=== PATIENT | male | born 1950 | race Caucasian/White ===

== ENCOUNTER 2022-12-14 08:36 | Outpatient (RCR) | payer MEDICARE, OTHER, SELFPAY | END 2023-04-16 09:26 | disposition home or self-care (01) | LOC: HO.PTCHIC 08:36 | PROVIDERS: PCP Pediatrics; Visit Provider Internal Medicine | DX: M54.50 Low back pain, unspecified (principal) | CPT/HCPCS: 97110; 97163 ==

== ENCOUNTER 2023-09-23 16:16 | Outpatient (REF) | payer MEDICARE, MEDICAID, SELFPAY ==
[2023-09-23 17:54] LABS: Appearance Urine Clear; Color Urine Yellow; Glucose Urine UA >=1000 mg/dL (Negative); Leukocyte Esterase Urine Negative (Negative); Nitrite Urine Negative (Negative); PH 5.5 (5.0-9.0); Specific Gravity - Urine >= 1.030 (1.005-1.025); UMIC TRIGGER UA YES; Urine Blood Negative (Negative); Urine Ketones Negative (Negative); Urine Protein Negative (Neg-Trace)
[2023-09-23 18:01] LABS: Bacteria Urine None Seen (None Seen); Hyaline Casts Urine 0-2 /LPF (0-2); RBC Urine 0-2 /HPF (0-2); Squamous Epithelial Cell Urine 0-2 /HPF (0-2); WBC Urine 0-5 /HPF (0-5)
== END 2023-09-23 16:17 | disposition home or self-care (01) ==
LOC: HO.CHCLNP 16:16
PROVIDERS: Visit Provider Registered Nurse
DX: R39.9 Unspecified symptoms and signs involving the genitourinary system (principal)
CPT/HCPCS: 81001; 87086

== ENCOUNTER 2023-09-24 10:56 | Outpatient (REF) | payer MEDICARE, OTHER, SELFPAY ==
[2023-09-24 15:37] LABS: Prostate Specific Antigen 4.02 ng/mL (<0.05-4.0)
== END 2023-09-24 10:57 | disposition home or self-care (01) ==
LOC: HO.CHCLDS 10:56
PROVIDERS: Visit Provider Registered Nurse
DX: R39.9 Unspecified symptoms and signs involving the genitourinary system (principal); R39.14 Feeling of incomplete bladder emptying; Z12.5 Encounter for screening for malignant neoplasm of prostate
CPT/HCPCS: 36415; 84153

== ENCOUNTER 2023-11-18 08:32 | Outpatient (AMB) | payer MEDICARE, MEDICAID, SELFPAY ==
--- NOTE | 2023-11-18 08:38 | A.OFFVIS_ITS ---
Intake Intake Visit Reasons: Elevated PSA Intake Note: NEW Patient presents today to established treatment for Elevated PSA: Results 4.02 ng/mL, 09/24/2023. Meds- Tamsulosin Allergies to Antibiotic- No Known Allergies Blood Thinner- Aspirin Post Void Residual: 83 mL Client Service Supervisor Required: Yes Client Service Supervisor Language: Italian Information Interpreted: non-clinical & clinical Accompanied by: Self / Same As Patient Allergies No Known Allergies [No Known Allergies*] Allergy (Verified 11/18/23 09:00) Medication List - Last Reconciled 11/18/23 by Rossy Do MD aspirin 81 mg PO QAM atorvastatin 20 mg PO QAM cholecalciferol (vitamin D3) 125 mcg PO QWEEK ezetimibe 10 mg PO QAM famotidine 20 mg PO finasteride (Proscar) 5 mg PO DAILY 90 days gabapentin 200 mg PO lisinopril 10 mg PO QAM metformin 1,000 mg PO metoprolol tartrate 12.5 mg PO sertraline 50 mg PO QAM tamsulosin 0.4 mg PO QAM HPI HPI Comments History of Present Illness Details Richar is a Italian speaking male who is here for evaluation for elevated PSA. 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 He denies FH of prostate cancer. The patient complains of nocturia 1-2 times denies hematuria, denies dysuria, ocassional weak stream I have discussed that elevated PSA may indicate changes in the prostate including benign enlargement, cancer and an inflammatory condition. I have discussed doing a biopsy has risks and that management in early detection of prostate cancer may include active surveillance. Prostate exam - smooth no suspicious nodules I have discussed evaluation of urinary tract with US retroperitoneum and will start proscar. UA---Leuk neg, blood neg Plan:proscar 5 mg daily US retroperitoneum PSA in 14 wks FU in 4 months [facility] Surgical History Hx of heart artery stent Hx of hernia repair Family History Father Heart disease Diabetes No family history of cancer Mother No problems noted. Social History Alcohol intake: current Alcohol intake frequency: holidays/special occasions only Patient Tobacco Use Status: Never used Tobacco Review of Systems Const All systems reviewed & are unremarkable except as noted in HPI and below Reports no additional complaints Eyes Reports no additional complaints ENT Reports no additional complaints Card Denies dyspnea Resp Denies cough and Denies dyspnea GI Reports no additional complaints Musc Reports no additional complaints Skin/Breast Denies rash and Denies unusual bruising Neuro Reports no additional complaints Psych Reports no additional complaints Endo Reports no additional complaints Liang/Lymph Reports no additional complaints Aller/Immun Reports no additional complaints Physical Exam Const General: healthy appearing, no acute distress and well developed Orientation/consciousness: patient oriented x3 HEENT Head: Yes normocephalic and Yes atraumatic Eyes Conjunctivae: conjunctivae normal Neck Neck: Yes normal visual inspection Chest Chest palpation & inspection: normal inspection of the chest Resp Effort & Inspection: normal respiratory effort Cardio Rate: regular rate GI Inspection: Yes normal to inspection Palpation (GI): Soft to palpation Other: Prostate Exam: smooth, mod enlarged no suspicious nodules palp'd Scrotum: scrotum normal Skin General skin exam: no rashes or lesions noted Neuro General: patient oriented x3 Extrem General: No pedal edema Psych Appearance: grossly normal Affect: normal affect Office Procedures Post Void Residual Post Residual Void Post Void Residual (PVR): 83 [id number] Void Residual by ultrasound Results AMB Urinalysis, Automated UA Leukoctes 0 Shobha/uL Last Edit by ADRIAN Wiseman on 11/18/23 09:08 UA Nitrite Negative Last Edit by ADRIAN Wiseman on 11/18/23 09:08 UA Urobilinogen 0.2 mg/dL Last Edit by ADRIAN Wiseman on 11/18/23 09:0 8 UA Protein 0 mg/dL Last Edit by ADRIAN Wiseman on 11/18/23 09:08 UA pH 5.5 Last Edit by ADRIAN Wiseman on 11/18/23 09:08 UA Blood 0 Andres/uL Last Edit by George Guzmán, JAIROA on 11/18/23 09:08 UA Specific [place] 1.015 Last Edit by JAIRO WisemanA on 11/18/23 09: 08 UA Ketone Negative Last Edit by JAIRO WisemanA on 11/18/23 09:08 UA Bilirubin 0 mg/dL Last Edit by JAIRO WisemanA on 11/18/23 09:08 UA Glucose 1000 mg/dL Last Edit by JAIRO WiesmanA on 11/18/23 09:08 3+ George Guzmán 11/18/23 09:08 Results Reviewed Results Reviewed: Laboratory Last Values Urine pH (Auto) 5.5 11/18/23 09:02 Specific [place] (Auto) 1.015 11/18/23 09:02 Urine Protein (Auto) 0 mg/dL 11/18/23 09:02 Glucose (UA)(Auto) 1000 mg/dL 11/18/23 09:02 Urine Ketones (Auto) Negative 11/18/23 09:02 Urine Blood (Auto) 0 Andres/uL 11/18/23 09:02 Urine Nitrite (Auto) Negative 11/18/23 09:02 Urine Bilirubin (Auto) 0 mg/dL 11/18/23 09:02 Urine Urobilinogen (Auto) 0.2 mg/dL 11/18/23 09:02 Leukocyte Esterase (Auto) 0 Shobha/uL 11/18/23 09:02 Assessment & Plan Assessment & Plan (1) BPH loc w urin obs/LUTS: Code(s): N40.1 - Benign prostatic hyperplasia with lower urinary tract symptoms (2) Elevated PSA: Code(s): R97.20 - Elevated prostate specific antigen [PSA] Plan proscar 5 mg daily US retroperitoneum PSA in 14 wks FU in 4 months Orders: Orders US retroperitoneal comp 11/18/23 N40.1 - Benign prostatic hyperplasia with lower urinary tract symptoms AMB Urinalysis Automated 11/18/23 Z13.9 - Encounter for screening, unspecified AMB Post Void Residual by ultrasound 11/18/23 N39.8 - Other specified disorders of urinary system PSA,Total (Free>4and<10) 14 Weeks N40.1 - Benign prostatic hyperplasia with lower urinary tract symptoms, R97.20 - Elevated prostate specific antigen [PSA] Medications: New finasteride (Proscar) 5 mg PO DAILY 90 days 90 tabs 3RF C61 - Malignant neoplasm of prostate Patient Instructions: The patient had an opportunity to ask questions regarding treatment plan. All questions were answered. Laboratory studies and physical exam results were discussed and reviewed in detail. No major barriers to understanding were identified. The patient expressed understanding and agreement with the above treatment plan. The patient is aware they should contact our office by phone for worsening of their current condition or the appearance of new symptoms. Compliance is encouraged with any medications and followup testing that is ordered. It is a privilege to be allowed the opportunity to participate in the urologic care of your patient. If you have any questions or concerns regarding treatment for the above conditions please do not hesitate to contact me. The office telephone contact is [phone]. This note is constructed in part using voice recognition software. While every effort has been made to ensure accuracy railroad car repairman errors may have been included. Yours sincerely, Rossy Do MD Coding Level of Care Code New Pt Level 4 (72465) Diagnoses BPH loc w urin obs/LUTS N40.1 Elevated PSA R97.20 CPT Codes Post Residual Void - PVR CPT Code: 22808-Sail Void Residual by ultrasound ([id number])
== END 2023-11-18 10:00 | disposition home or self-care (01) ==
PROVIDERS: PCP Pediatrics; Visit Provider Urology
DX: N40.1 Benign prostatic hyperplasia with lower urinary tract symptoms (principal); R97.20 Elevated prostate specific antigen [PSA]
CPT/HCPCS: 99204

== ENCOUNTER → 2023-11-18 08:32 | Outpatient (BNVA) | payer MEDICARE, OTHER, SELFPAY | PROVIDERS: PCP Pediatrics; Visit Provider Urology | DX: N40.1 Benign prostatic hyperplasia with lower urinary tract symptoms (principal); R35.1 Nocturia; R97.20 Elevated prostate specific antigen [PSA]; Z79.82 Long term (current) use of aspirin | CPT/HCPCS: 51798; 81003; 99202 ==

== ENCOUNTER 2024-03-04 09:31 | Outpatient (REF) | payer MEDICARE, MEDICAID, SELFPAY ==
--- NOTE | ~2024-03-04 | US_ITS ---
EXAMINATION: US RETROPERITONEAL COMPLETE (RENAL) CLINICAL INFORMATION: Benign prostatic hyperplasia with lower urinary tract symptoms. COMPARISON: None available. TECHNIQUE: Real-time imaging of the kidneys and bladder. FINDINGS: RIGHT KIDNEY: 11.2 x 6.8 x 5.6 cm (SAG x AP x TRV). The kidney is normal in size, contour, and echogenicity. Renal cortical thickness is normal. No renal calculi or hydronephrosis. Multiple simple cysts measuring up to 2.0 cm. No imaging follow-up is recommended. 1.5 cm focal echogenic lesion in the lower pole right kidney. LEFT KIDNEY: No kidney is seen in the left renal fossa. PELVIC KIDNEY: Located to the right of midline. Pelvic kidney measures 8.8 x 2.7 x 3.0 cm (SAG x AP x TRV). The kidney measures small but this may be due to the pelvic position of the kidney and suboptimal visualization. There is no visible mass. No nephrolithiasis or hydronephrosis. BLADDER: Well distended and normal. Bilateral ureteral jets are demonstrated. Prevoid bladder volume is 350 mL. Postvoid bladder volume is 215 mL. ADDITIONAL FINDINGS: Enlarged prostate measuring 51 mL. US/US retroperitoneal comp IMPRESSION: Right kidney in the right renal fossa. 1.5 cm focal echogenic lesion in the lower pole right kidney. 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 Follow-up imaging is recommended with CT abdomen without and with contrast as renal cell carcinoma can present as an echogenic mass on ultrasound. No kidney in the left renal fossa. There is a pelvic kidney located to the right of midline which measures small in size but is otherwise normal in appearance. Enlarged prostate. No hydronephrosis. Post void bladder residual 215 mL.
== END 2024-03-04 09:32 | disposition home or self-care (01) ==
LOC: HO.US 09:31
PROVIDERS: PCP Student in an Organized Health Care Education/Training Program; Visit Provider Urology
DX: N40.1 Benign prostatic hyperplasia with lower urinary tract symptoms (principal)
CPT/HCPCS: 76770

== ENCOUNTER 2024-03-19 09:58 | Outpatient (AMB) | payer MEDICARE, MEDICAID, SELFPAY ==
--- NOTE | 2024-03-19 10:03 | A.OFFVIS_ITS ---
Intake Visit Reasons: 4m/PSA Intake Note: Patient presents today for a follow-up on US Results: Meds- Tamsulosin Allergies to Antibiotic- No Known Allergies Blood Thinner- Aspirin Post Void Residual: 0mL Jewel Diameter Gauger Required: Yes Jewel Diameter Gauger Language: Nigerien Information Interpreted: non-clinical & clinical Accompanied by: Self / Same As Patient Allergies No Known Allergies [No Known Allergies*] Allergy (Verified 11/18/23 09:00) Medication List - Last Reconciled 03/19/24 by Rossy Do MD aspirin 81 mg PO QAM atorvastatin 20 mg PO QAM cholecalciferol (vitamin D3) 125 mcg PO QWEEK ezetimibe 10 mg PO QAM famotidine 20 mg PO finasteride (Proscar) 5 mg PO DAILY 90 days gabapentin 200 mg PO lisinopril 10 mg PO QAM metformin 1,000 mg PO metoprolol tartrate 12.5 mg PO sertraline 50 mg PO QAM tamsulosin 0.4 mg PO QAM HPI Comments Details: 03/19/24--Richar is here for follow-up for elevated PSA. He was initially evaluated 11/18/2023 for elevated PSA, 09/24/23-4.02 and sent for repeat PSA, started on Proscar and sent for renal ultrasound. I have reviewed ultrasound results 03/04/2024, left kidney is absent from the renal fossa. Right kidney 1.5 cm echogenic lesion lower pole. Pelvic kidney seen to the right of the midline and elevated postvoid residual. Prostate volume estimated at 51 mL. I have discussed further evaluation with CT abdomen and pelvis with and without IV contrast. PSA, BUN, and creatinine ordered. Review of chart 11/18/23--Richar is a Nigerien speaking male who is here for evaluation for elevated PSA. 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 He denies FH of prostate cancer. The patient complains of nocturia 1-2 times denies hematuria, denies dysuria, ocassional weak stream. I have discussed that elevated PSA may indicate changes in the prostate including benign enlargement, cancer and an inflammatory condition. I have discussed doing a biopsy has risks and that management in early detection of prostate cancer may include active surveillance. Prostate exam - smooth no suspicious nodules. UA---Leuk neg, blood neg I have discussed evaluation of urinary tract with US retroperitoneum and will start proscar. PFSH Surgical History Hx of heart artery stent Hx of hernia repair Family History Father Heart disease Diabetes No family history of cancer Mother No problems noted. Social History Alcohol intake: current Alcohol intake frequency: holidays/special occasions only Patient Tobacco Use Status: Never used Tobacco Review of Systems Const All systems reviewed & are unremarkable except as noted in HPI and below Reports no additional complaints Eyes Reports no additional complaints ENT Reports no additional complaints Card Reports no additional complaints Resp Reports no additional complaints GI Reports no additional complaints Reports as per HPI Musc Reports no additional complaints Skin/Breast Reports system reviewed and no additional complaints, except as documented Neuro Reports no additional complaints Psych Reports no additional complaints Endo Reports no additional complaints Liang/Lymph Reports no additional complaints Aller/Immun Reports no additional complaints Office Procedures Post Void Residual Post Residual Void Post Void Residual (PVR): 0 [id number] Void Residual by ultrasound Results AMB Urinalysis, Automated UA Leukoctes 0 Shobha/uL Last Edit by ADRIAN Wiseman on 03/19/24 10:14 UA Nitrite Negative Last Edit by ADRIAN Wiseman on 03/19/24 10:14 UA Urobilinogen 0.2 mg/dL Last Edit by ADRIAN Wiseman on 03/19/24 10:1 4 UA Protein 0 mg/dL Last Edit by ADRIAN Wiseman on 03/19/24 10:14 UA pH 6.0 Last Edit by ADRIAN Wiseman on 03/19/24 10:14 UA Blood 0 Andres/uL Last Edit by ADRIAN Wiseman on 03/19/24 10:14 UA Specific [place] 1.010 Last Edit by George Morinmer ADRIAN on 03/19/24 10: 14 UA Ketone Negative Last Edit by George Guzmán ADRIAN on 03/19/24 10:14 UA Bilirubin 0 mg/dL Last Edit by George Guzmán ADRIAN on 03/19/24 10:14 UA Glucose 1000 mg/dL Last Edit by George Guzmán ADRIAN on 03/19/24 10:14 Results Reviewed Results Reviewed: Laboratory Last Values Urine pH (Auto) 6.0 03/19/24 10:05 Specific [place] (Auto) 1.010 03/19/24 10:05 Urine Protein (Auto) 0 mg/dL 03/19/24 10:05 Glucose (UA)(Auto) 1000 mg/dL 03/19/24 10:05 Urine Ketones (Auto) Negative 03/19/24 10:05 Urine Blood (Auto) 0 Andres/uL 03/19/24 10:05 Urine Nitrite (Auto) Negative 03/19/24 10:05 Urine Bilirubin (Auto) 0 mg/dL 03/19/24 10:05 Urine Urobilinogen (Auto) 0.2 mg/dL 03/19/24 10:05 Leukocyte Esterase (Auto) 0 Shobha/uL 03/19/24 10:05 Date of Service: 03/04/24 EXAMINATION: US RETROPERITONEAL COMPLETE (RENAL) CLINICAL INFORMATION: Benign prostatic hyperplasia with lower urinary tract symptoms. COMPARISON: None available. TECHNIQUE: Real-time imaging of the kidneys and bladder. FINDINGS: RIGHT KIDNEY: 11.2 x 6.8 x 5.6 cm (SAG x AP x TRV). The kidney is normal in size, contour, and echogenicity. Renal cortical thickness is normal. No renal calculi or hydronephrosis. Multiple simple cysts measuring up to 2.0 cm. No imaging follow-up is recommended. 1.5 cm focal echogenic lesion in the lower pole right kidney. LEFT KIDNEY: No kidney is seen in the left renal fossa. PELVIC KIDNEY: Located to the right of midline. Pelvic kidney measures 8.8 x 2.7 x 3.0 cm (SAG x AP x TRV). The kidney measures small but this may be due to the pelvic position of the kidney and suboptimal visualization. There is no visible mass. No nephrolithiasis or hydronephrosis. BLADDER: Well distended and normal. Bilateral ureteral jets are demonstrated. Prevoid bladder volume is 350 mL. Postvoid bladder volume is 215 mL. ADDITIONAL FINDINGS: Enlarged prostate measuring 51 mL. IMPRESSION: Right kidney in the right renal fossa. 1.5 cm focal echogenic lesion in the lower pole right kidney. 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 Follow-up imaging is recommended with CT abdomen without and with contrast as renal cell carcinoma can present as an echogenic mass on ultrasound. No kidney in the left renal fossa. There is a pelvic kidney located to the right of midline which measures small in size but is otherwise normal in appearance. Enlarged prostate. No hydronephrosis. Post void bladder residual 215 mL. 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 Category: Medical Plan CT abdomen and pelvis with and without IV contrast, BUN and creatinine prior to IV contrast, PSA again ordered Orders: Orders AMB Post Void Residual by ultrasound Today N39.8 - Other specified disorders of urinary system Blood Urea Nitrogen Today N28.89 - Other specified disorders of kidney and ureter CT abdomen pelvis wo/w IV con Today N28.89 - Other specified disorders of kidney and ureter, 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 The patient expressed understanding and agreement with the above treatment plan. The patient is aware they should contact our office by phone for worsening of their current condition or the appearance of new symptoms. Compliance is encouraged with any medications and followup testing that is ordered. It is a privilege to be allowed the opportunity to participate in the urologic care of your patient. If you have any questions or concerns regarding treatment for the above conditions please do not hesitate to contact me. The office telephone contact is [phone]. This note is constructed in part using voice recognition software. While every effort has been made to ensure accuracy router machine operator errors may have been included. Yours sincerely, Rossy Do MD Coding Level of Care Code Est Pt Level 4 (87494) Diagnoses BPH loc w urin obs/LUTS N40.1 Elevated PSA R97.20 Renal mass N28.89 Screening PSA (prostate specific antigen) Z12.5 Pelvic kidney Q63.2 CPT Codes Post Residual Void - PVR CPT Code: 88586-Kfws Void Residual by ultrasound ([id number])
== END 2024-03-19 11:18 | disposition home or self-care (01) ==
PROVIDERS: PCP Pediatrics; Visit Provider Urology
DX: N40.1 Benign prostatic hyperplasia with lower urinary tract symptoms (principal); R97.20 Elevated prostate specific antigen [PSA]; N28.89 Other specified disorders of kidney and ureter; Z12.5 Encounter for screening for malignant neoplasm of prostate; Q63.2 Ectopic kidney; Z13.9 Encounter for screening, unspecified
CPT/HCPCS: 99214

== ENCOUNTER → 2024-03-19 09:58 | Outpatient (BNVA) | payer MEDICARE, MEDICAID, SELFPAY | PROVIDERS: PCP Pediatrics; Visit Provider Urology | DX: N40.1 Benign prostatic hyperplasia with lower urinary tract symptoms (principal); N13.8 Other obstructive and reflux uropathy; R97.20 Elevated prostate specific antigen [PSA]; N28.89 Other specified disorders of kidney and ureter; Q63.2 Ectopic kidney | CPT/HCPCS: 51798; 81003; 99212 ==

== ENCOUNTER 2024-05-20 07:05 | Outpatient (REF) | payer MEDICARE, MEDICAID, SELFPAY ==
--- NOTE | ~2024-05-20 | CT_ITS ---
EXAMINATION: CT ABDOMEN AND PELVIS WITHOUT AND WITH CONTRAST CLINICAL INFORMATION: Right renal mass. COMPARISON: Renal ultrasound 03/04/2024. TECHNIQUE: Multidetector volumetric imaging was performed of the abdomen and pelvis before and after the IV administration of 85 mL of Omnipaque 350 intravenous contrast. Sagittal and coronal reformatted images were obtained on the technologist's workstation. This CT examination was performed using dose optimization techniques as appropriate, variously including the following: *Automated exposure control *Adjustment of mA and/or kV according to patient size (this includes techniques or standardized protocols for targeted exams where dose is matched to indication/reason for exam; i.e. extremities or head) *Use of iterative reconstruction technique DLP: 409 mGy-cm FINDINGS: LUNG BASES: The visualized lung bases are unremarkable. LIVER, GALLBLADDER, AND BILIARY TREE: The liver is normal in size, shape, and attenuation. No focal hepatic lesion or biliary ductal dilatation is present. Cholecystectomy. PANCREAS: No discrete pancreatic mass. No pancreatic ductal dilatation. 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 KIDNEYS AND URETERS: No kidney in the left retroperitoneum. Right kidney in the right retroperitoneum. Right pelvic kidney. There is symmetric enhancement of both kidneys. No nephrolithiasis. There is subtle contour abnormality and subtle hypoenhancement measuring 1.7 x 1.6 cm along the inferior aspect of the right retroperitoneal kidney which corresponds to the area of abnormal echotexture on recent ultrasound. This is not a lipid rich angiomyolipoma. Etiology uncertain. This could represent perfusional artifact or a subtle endophytic mass that enhances similarly to adjacent renal parenchyma making it difficult to distinguish. Recommend further evaluation with MRI of the abdomen without and with intravenous contrast as it has better soft tissue characterization than CT. There is no visible mass in the right pelvic kidney. No hydronephrosis. BLADDER: Unremarkable GASTROINTESTINAL TRACT: Small bowel is normal in caliber. Diverticulosis of the colon. No evidence of diverticulitis. ABDOMINAL WALL: Left inguinal hernia repair. LYMPH NODES: No pathologically enlarged lymph nodes. VASCULAR: No aortic aneurysm. Mild aortoiliac atherosclerosis. PELVIC VISCERA: The prostate is enlarged. OSSEOUS STRUCTURES: Degenerative changes in the spine. CT/CT abdomen pelvis wo/w IV con IMPRESSION: Subtle contour abnormality and hypoenhancement measuring 1.7 x 1.6 cm in the lower right kidney corresponding to the area of abnormal echotexture on recent ultrasound. The finding is nonspecific. Neoplasm is not excluded. Recommend further evaluation with MRI of the abdomen without and with intravenous contrast due to its better soft tissue characterization.
[2024-05-20 09:23] LABS: Alanine Aminotransferase 26 U/L (0-40); Albumin Level 4.1 g/dL (3.5-5.0); Alkaline Phosphatase 65 U/L (39-117); Aspartate Amino Transferase 22 U/L (5-37); Bilirubin Direct 0.4 mg/dL (0.0-0.5); Bilirubin Total 1.1 mg/dL (0.0-1.0); Blood Urea Nitrogen 24 mg/dL (9-16); Cholesterol 160 mg/dL (<200); Estimated Glomerular Filt Rate > 60; HDL Cholesterol 62 mg/dL (>40); LDL Cholesterol Calculated 85 mg/dL (<100); Total Protein 7.2 g/dL (6.5-8.0); Triglycerides 69 mg/dL (<150)
[2024-05-20] MEDS: iohexoL 350 MG/ML 75 ML INFUS..BTL 85 ML IV (10:44)
== END 2024-05-20 07:06 | disposition home or self-care (01) ==
LOC: HO.CT 07:05
PROVIDERS: PCP Student in an Organized Health Care Education/Training Program; Visit Provider Urology
DX: Z12.5 Encounter for screening for malignant neoplasm of prostate (principal); Q63.2 Ectopic kidney; R97.20 Elevated prostate specific antigen [PSA]; N40.1 Benign prostatic hyperplasia with lower urinary tract symptoms; E11.9 Type 2 diabetes mellitus without complications; N28.89 Other specified disorders of kidney and ureter
CPT/HCPCS: 36415; 74178; 80061; 80076; 82565; 84153; 84520; Q9967

== ENCOUNTER 2024-09-03 07:48 | Outpatient (AMB) | payer MEDICARE, MEDICAID, SELFPAY ==
--- NOTE | 2024-09-03 07:38 | MHC.OFFVIS ---
Intake Visit Reasons: 3m/CT/labs/PVR(NO PSA) Intake Note: Patient is Present for Follow Up CT Urology Medication: Finasteride Antibiotic Allergies:None Blood Thinners:Aspirin Aviation Electrical Technician Required: Yes Aviation Electrical Technician Name: Adelita--[id number] Information Interpreted: non-clinical & clinical Allergies No Known Allergies [No Known Allergies*] Allergy (Verified 11/18/23 09:00) Medication List - Last Reconciled 09/03/24 by Rossy Do MD aspirin 81 mg PO QAM atorvastatin 20 mg PO QAM cholecalciferol (vitamin D3) 125 mcg PO QWEEK dutasteride (Avodart) 0.5 mg PO DAILY ezetimibe 10 mg PO QAM famotidine 20 mg PO gabapentin 200 mg PO lisinopril 10 mg PO QAM metformin 1,000 mg PO metoprolol tartrate 12.5 mg PO sertraline 50 mg PO QAM tamsulosin 0.4 mg PO QAM HPI Comments Details: 09/03/2024--Richar is here for follow-up. Discussed CT scan results--05/20/24-- No kidney in the left retroperitoneum. Right kidney in the right retroperitoneum and Right pelvic kidney. There is symmetric enhancement of both kidneys. No nephrolithiasis. There is subtle contour abnormality and subtle hypoenhancement measuring 1.7 x 1.6 cm along the inferior aspect of the right retroperitoneal kidney which corresponds to the area of abnormal echotexture on recent ultrasound. This is not a lipid rich angiomyolipoma. Etiology uncertain. PSA-05/17/24--3.50 ng/mL--Stable, proscar changed to avodart, tamsulosin. Review of chart: 03/19/24--Richar is here for follow-up for elevated PSA. He was initially evaluated 11/18/2023 for elevated PSA, 09/24/23-4.02 and sent for repeat PSA, started on Proscar and sent for renal ultrasound. I have reviewed ultrasound results 03/04/2024, left kidney is absent from the renal fossa. Right kidney 1.5 cm echogenic lesion lower pole. Pelvic kidney seen to the right of the midline and elevated postvoid residual. Prostate volume estimated at 51 mL. I have discussed further evaluation with CT abdomen and pelvis with and without IV contrast. PSA, BUN, and creatinine ordered. 11/18/23--Richar is a Tajik speaking male who is here for evaluation for elevated PSA. 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 He denies FH of prostate cancer. The patient complains of nocturia 1-2 times denies hematuria, denies dysuria, ocassional weak stream. I have discussed that elevated PSA may indicate changes in the prostate including benign enlargement, cancer and an inflammatory condition. I have discussed doing a biopsy has risks and that management in early detection of prostate cancer may include active surveillance. Prostate exam - smooth no suspicious nodules. UA---Leuk neg, blood neg I have discussed evaluation of urinary tract with US retroperitoneum and will start proscar. PFSH Surgical History Hx of heart artery stent Hx of hernia repair Family History Father Heart disease Diabetes No family history of cancer Mother No problems noted. Social History Alcohol intake: current Alcohol intake frequency: holidays/special occasions only Patient Tobacco Use Status: Never used Tobacco Review of Systems Const All systems reviewed & are unremarkable except as noted in HPI and below Reports no additional complaints Eyes Reports no additional complaints ENT Reports no additional complaints Card Reports no additional complaints Resp Reports no additional complaints GI Reports no additional complaints Reports as per HPI Musc Reports no additional complaints Skin/Breast Reports system reviewed and no additional complaints, except as documented Neuro Reports no additional complaints Psych Reports no additional complaints Endo Reports no additional complaints Liang/Lymph Reports no additional complaints Aller/Immun Reports no additional complaints Results AMB Urinalysis, Automated UA Leukoctes 0 Shobha/uL Last Edit by ADRIAN Carrillo on 09/03/24 08:28 UA Nitrite Negative Last Edit by ADRIAN Carrillo on 09/03/24 08:28 UA Urobilinogen 0.2 mg/dL Last Edit by ADRIAN Carrillo on 09/03/24 08:28 UA Protein 0 mg/dL Last Edit by ADRIAN Carrillo on 09/03/24 08:28 UA pH 5.0 Last Edit by ADRIAN Carrillo on 09/03/24 08:28 UA Blood 0 Andres/uL Last Edit by ADRIAN Carrillo on 09/03/24 08:28 UA Specific [place] 1.030 Last Edit by JAIRO CarrilloA on 09/03/24 08:28 UA Ketone Negative Last Edit by JAIRO CarrilloA on 09/03/24 08:28 UA Bilirubin 0 mg/dL Last Edit by JAIRO CarrilloA on 09/03/24 08:28 UA Glucose 1000 mg/dL Last Edit by JAIRO CarrilloA on 09/03/24 08:28 Results Reviewed Results Reviewed: Laboratory Last Values Urine pH (Auto) 5.0 09/03/24 08:28 Specific [place] (Auto) 1.030 09/03/24 08:28 Urine Protein (Auto) 0 mg/dL 09/03/24 08:28 Glucose (UA)(Auto) 1000 mg/dL 09/03/24 08:28 Urine Ketones (Auto) Negative 09/03/24 08:28 Urine Blood (Auto) 0 Andres/uL 09/03/24 08:28 Urine Nitrite (Auto) Negative 09/03/24 08:28 Urine Bilirubin (Auto) 0 mg/dL 09/03/24 08:28 Urine Urobilinogen (Auto) 0.2 mg/dL 09/03/24 08:28 Leukocyte Esterase (Auto) 0 Shobha/uL 09/03/24 08:28 Date of Service: 05/20/24 CT ABDOMEN AND PELVIS WITHOUT AND WITH CONTRAST CLINICAL INFORMATION: Right renal mass. COMPARISON: Renal ultrasound 03/04/2024. TECHNIQUE: Multidetector volumetric imaging was performed of the abdomen and pelvis before and after the IV administration of 85 mL of Omnipaque 350 intravenous contrast. Sagittal and coronal reformatted images were obtained on the technologist's workstation. This CT examination was performed using dose optimization techniques as appropriate, variously including the following: *Automated exposure control *Adjustment of mA and/or kV according to patient size (this includes techniques or standardized protocols for targeted exams where dose is matched to indication/reason for exam; i.e. extremities or head) *Use of iterative reconstruction technique DLP: 409 mGy-cm FINDINGS: LUNG BASES: The visualized lung bases are unremarkable. LIVER, GALLBLADDER, AND BILIARY TREE: The liver is normal in size, shape, and attenuation. No focal hepatic lesion or biliary ductal dilatation is present. Cholecystectomy. PANCREAS: No discrete pancreatic mass. No pancreatic ductal dilatation. 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 KIDNEYS AND URETERS: No kidney in the left retroperitoneum. Right kidney in the right retroperitoneum. Right pelvic kidney. There is symmetric enhancement of both kidneys. No nephrolithiasis. There is subtle contour abnormality and subtle hypoenhancement measuring 1.7 x 1.6 cm along the inferior aspect of the right retroperitoneal kidney which corresponds to the area of abnormal echotexture on recent ultrasound. This is not a lipid rich angiomyolipoma. Etiology uncertain. This could represent perfusional artifact or a subtle endophytic mass that enhances similarly to adjacent renal parenchyma making it difficult to distinguish. Recommend further evaluation with MRI of the abdomen without and with intravenous contrast as it has better soft tissue characterization than CT. There is no visible mass in the right pelvic kidney. No hydronephrosis. BLADDER: Unremarkable GASTROINTESTINAL TRACT: Small bowel is normal in caliber. Diverticulosis of the colon. No evidence of diverticulitis. ABDOMINAL WALL: Left inguinal hernia repair. LYMPH NODES: No pathologically enlarged lymph nodes. VASCULAR: No aortic aneurysm. Mild aortoiliac atherosclerosis. PELVIC VISCERA: The prostate is enlarged. OSSEOUS STRUCTURES: Degenerative changes in the spine. IMPRESSION: Subtle contour abnormality and hypoenhancement measuring 1.7 x 1.6 cm in the lower right kidney corresponding to the area of abnormal echotexture on recent ultrasound. The finding is nonspecific. Neoplasm is not excluded. Recommend further evaluation with MRI of the abdomen without and with intravenous contrast due to its better soft tissue characterization. Date of Service: 03/04/24 EXAMINATION: US RETROPERITONEAL COMPLETE (RENAL) CLINICAL INFORMATION: Benign prostatic hyperplasia with lower urinary tract symptoms. COMPARISON: None available. TECHNIQUE: Real-time imaging of the kidneys and bladder. FINDINGS: RIGHT KIDNEY: 11.2 x 6.8 x 5.6 cm (SAG x AP x TRV). The kidney is normal in size, contour, and echogenicity. Renal cortical thickness is normal. No renal calculi or hydronephrosis. Multiple simple cysts measuring up to 2.0 cm. No imaging follow-up is recommended. 1.5 cm focal echogenic lesion in the lower pole right kidney. LEFT KIDNEY: No kidney is seen in the left renal fossa. PELVIC KIDNEY: Located to the right of midline. Pelvic kidney measures 8.8 x 2.7 x 3.0 cm (SAG x AP x TRV). The kidney measures small but this may be due to the pelvic position of the kidney and suboptimal visualization. There is no visible mass. No nephrolithiasis or hydronephrosis. BLADDER: Well distended and normal. Bilateral ureteral jets are demonstrated. Prevoid bladder volume is 350 mL. Postvoid bladder volume is 215 mL. ADDITIONAL FINDINGS: Enlarged prostate measuring 51 mL. IMPRESSION: Right kidney in the right renal fossa. 1.5 cm focal echogenic lesion in the lower pole right kidney. 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 Follow-up imaging is recommended with CT abdomen without and with contrast as renal cell carcinoma can present as an echogenic mass on ultrasound. No kidney in the left renal fossa. There is a pelvic kidney located to the right of midline which measures small in size but is otherwise normal in appearance. Enlarged prostate. No hydronephrosis. Post void bladder residual 215 mL. 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 Orders: Orders AMB Urinalysis Automated Today Z13.9 - Encounter for screening, unspecified MR abdomen wo/w con Today N28.89 - Other specified disorders of kidney and ureter Creatinine Today N28.89 - Other specified disorders of kidney and ureter Blood Urea Nitrogen Today N28.89 - Other specified disorders of kidney and ureter Medications: New tamsulosin 0.4 mg PO QAM 90 caps 3RF dutasteride (Avodart) 0.5 mg PO DAILY 90 caps 3RF Patient Instructions: The patient had an opportunity to ask questions regarding treatment plan. The patient expressed understanding and agreement with the above treatment plan. The patient is aware they should contact our office by phone for worsening of their current condition or the appearance of new symptoms. Compliance is encouraged with any medications and followup testing that is ordered. It is a privilege to be allowed the opportunity to participate in the urologic care of your patient. If you have any questions or concerns regarding treatment for the above conditions please do not hesitate to contact me. The office telephone contact is [phone]. This note is constructed in part using voice recognition software. While every effort has been made to ensure accuracy hat blocking machine operator errors may have been included. Yours sincerely, Rossy Do MD Coding Level of Care Code Est Pt Level 4 (66589) Diagnoses BPH loc w urin obs/LUTS N40.1 Elevated PSA R97.20 Renal mass N28.89 Screening PSA (prostate specific antigen) Z12.5 Pelvic kidney Q63.2
== END 2024-09-03 08:53 | disposition home or self-care (01) ==
PROVIDERS: PCP Student in an Organized Health Care Education/Training Program; Visit Provider Urology
DX: N40.1 Benign prostatic hyperplasia with lower urinary tract symptoms (principal); R97.20 Elevated prostate specific antigen [PSA]; N28.89 Other specified disorders of kidney and ureter; Z12.5 Encounter for screening for malignant neoplasm of prostate; Q63.2 Ectopic kidney; Z13.9 Encounter for screening, unspecified
CPT/HCPCS: 99214

== ENCOUNTER → 2024-09-03 07:48 | Outpatient (BNVA) | payer MEDICARE, MEDICAID, SELFPAY | PROVIDERS: PCP Student in an Organized Health Care Education/Training Program; Visit Provider Urology | DX: Z12.5 Encounter for screening for malignant neoplasm of prostate (principal); N40.1 Benign prostatic hyperplasia with lower urinary tract symptoms; N28.89 Other specified disorders of kidney and ureter; Q63.2 Ectopic kidney; R97.20 Elevated prostate specific antigen [PSA] | CPT/HCPCS: 81003; 99212 ==

== ENCOUNTER 2024-12-11 10:18 | Outpatient (REF) | payer MEDICARE, MEDICAID, SELFPAY ==
--- OUTSIDE RECORDS SUMMARY | 2024-12-11 11:15 | XMS_ITS | Encounter Summary ---
Author Organization [email or web address] Address [address] [place] [address] [address] [place] [address] Care Team Providers Care Supervisor [employer]ler [employer] Name Role Phone Johana Nelson MD Primary Care Provider [phone] Encounter Details Date Type Department Care Team (Late st Contact Info) Description 08/01/2023 [facility] [employer] [facility] [address] [place], [place] [id number] Johana Nelson MD [address] [place], [place] [phone] Social History Tobacco Use Types Packs/Day Years Used Date Smoking Tobacco: Former Cigarettes Passive Smoke Exposure: Past Smokeless Tobacco: Never Alcohol Use Standard Drinks/Week Comments Not Currently 0 (1 standard drink = 0.6 oz pur e alcohol) Depression Answer Date Recorded Patient Health Questionnaire-9 Score 5 12/12/2022 Depression Answer Date Recorded Patient Health Questionnaire-2 Score 3 12/12/2022 Sex and Gender Information Value Date Recorded Sex Assigned at Male 09/03/2022 10:17 AM EDT Legal Sex Male 10:17 AM EDT Gender Identity Male 09/03/2022 10:17 AM EDT Sexual Orientation Straight 09/03/2022 10 :17 AM EDT documented as of this encounter Plan of Treatment Upcoming Encounters Date Type Department Care Team (Late st Contact Info) Description 12/23/2024 1:00 PM EST Office Visit [facility] [address] [place], [place] [phone] Mohsen King [address] [place], [place] [phone] documented as of this encounter Visit Diagnoses Not on filedocumented in this encounter Additional Health Concerns Assessment Noted Time PHQ-9 Depression Total Score: 5 12/12/19 23 10:17 AM EST documented as of this encounter Care Teams Supervisor [employer]ler [employer] Relationship Specialty Start Date End Date Johana Nelson MD [address] [place] [id number] PCP - General Family Medicine 09/24/12 documented as of this encounter
--- OUTSIDE RECORDS SUMMARY | 2024-12-11 11:15 | XMS_ITS | Clinical Summary ---
Author Organization [employer] Address [address] [place] [address] Care Team Providers Care Blowing Weasand Name Role Phone Johana Nelson MD Primary Care Provider Allergies No known active allergies Medications * This document contains information received from the source organization and may not represent a complete record from that organization. lisinopril 10 MG tablet Take 10 mg by mouth in the morning. 10/16/20 22 Active cetirizine (ZyrTEC) 10 MG tablet Take 1 tablet (10 mg) by mouth in the morning. 30 tablet 5 06/28/20 23 Active dapagliflozin (Farxiga) 5 MG Take 1 tablet (5 mg) by mouth in the morning. 30 tablet 11 12/11/19 24 Active Cobalamin Combinations (B-12 + Folic Acid) 2500-400 MCG tablet dispersibleIndic ations:Varicose veins of lower extremity, unspecified laterality, unspecified whether complicated TAKE ONE TABLET EVERY MORNING 30 tablet 11 12/25/19 24 Active atorvastatin (Lipitor) 20 MG tablet Take 1 tablet by mouth before breakfast. 01/22/20 23 Active finasteride (Proscar) 5 MG tablet Take 1 tablet by mouth in the morning. 11/19/19 24 Active nitroglycerin (Nitrostat) 0.[address] 1 tablet under the tongue every 5 (five) minutes if needed for chest pain. DO NOT EXCEED A TOTAL OF 3 DOSES IN 15 MINUTES Active sertraline (Zoloft) 50 MG tabletIndication s:Depression, unspecified depression type Take 1 tablet (50 mg) by mouth Once per day. 30 tablet 1 04/01/20 24 Active Diclofenac Sodium (Voltaren) 1 % gel Use topical BID 100 g 3 04/20/20 24 Active ezetimibe (Zetia) 10 MG tablet TAKE ONE TABLET EVERY MORNING 90 tablet 1 04/27/20 24 Active Aspirin Adult Low Strength 81 MG EC tablet TAKE ONE TABLET EVERY MORNING 90 tablet 1 05/15/20 24 Active Easy Touch Lancets 33G/Twist miscIndications: Type 2 diabetes mellitus without complications ([facility]/HCC) USE TO TEST BLOOD SUGAR TWO TO THREE TIME DAILY DIRECTED 90 each 06/15/20 24 025 Active Alcohol Swabs (Alcohol Prep) 70 % pads USE TWO TO THREE DAILY 90 each 06/15/20 24 025 Active tamsulosin (Flomax) 0.4 MG 24 hr capsuleIndicatio ns:Feeling of incomplete bladder emptying Take 1 capsule (0.4 mg) by mouth Once per day. 90 capsule 1 06/17/20 24 Active metFORMIN (Glucophage) 1000 MG tablet Take 1 tablet (1,000 mg) by mouth with breakfast and with evening meal. 180 tablet 3 06/17/20 24 025 Active gabapentin (Neurontin) 100 MG capsule TAKE TWO CAPSULES BY MOUTH TWICE DAILY IN THE MORNING AND AT BEDTIME 120 capsule 11 07/24/20 24 Active metoprolol tartrate (Lopressor) 25 MG tablet TAKE 1/2 TABLET TWICE DAILY IN THE MORNING AND AT BEDTIME 30 tablet 3 08/05/20 24 Active famotidine (Pepcid) 20 MG tablet TAKE ONE TABLET TWICE DAILY IN THE MORNING AND AT BEDTIME 60 tablet 1 08/20/20 24 Active cholecalciferol (Vitamin D-3) 125 MCG (5000 UT) capsule TAKE ONE CAPSULE BY MOUTH ONCE WEEKLY SATURDAY MORNING 4 capsule 4 08/28/20 24 Active glucose blood test stripIndications :Type 2 diabetes mellitus without complication, without long-term current use of insulin ([facility]) To check the blood sugar once a day 100 each 12 09/30/20 24 025 Active Lancets miscIndications: Type 2 diabetes mellitus without complication, without long-term current use of insulin ([facility]/HCC) Use to test blood sugar 1 time daily 100 each 11 10/07/20 24 Active glucose blood (FREESTYLE LITE) test stripIndications :Type 2 diabetes mellitus without complications (CMS/HCC) TEST BLOOD SUGAR once DAILY DIRECTED 100 strip 11 /07/20 25 Active celecoxib (CeleBREX) 50 MG capsule Take 1 capsule (50 mg) by mouth 2 times daily. 60 capsule 11/24/19 25 025 Active nitroglycerin (Nitrostat) 0.[address] 1 tablet (0.4 mg) under the tongue every 5 (five) minutes if needed for chest pain. 60 tablet 11/24/19 25 025 Active glipiZIDE (Glucotrol) 10 MG tablet Take 1 tablet (10 mg) by mouth before breakfast and before evening meal. 60 tablet 12/09/19 026 Active Dulaglutide (Trulicity) 0.75 MG/0.5ML solution auto-injectorInd ications:Type 2 diabetes mellitus without complication, without long-term current use of insulin ([facility]) Inject 0.75 mg under the skin 1 (one) time per week. 2 mL 3 12/11/19 026 Active hydrOXYzine HCl (Atarax) 25 MG tabletIndication s:Depression, unspecified depression type Take 1 tablet (25 mg) by mouth if needed at bedtime for anxiety. 90 tablet 3 12/12/19 025 Discontinued glipiZIDE (Glucotrol) 10 MG tablet Take 1 tablet (10 mg) by mouth before breakfast and before evening meal. 60 tablet 06/27/20 025 Discontinued(R eorder (will not trigger notification to Pharmacy)) cyclobenzaprine (Flexeril) 10 MG tablet Take 1 tablet (10 mg) by mouth 2 times daily for 10 days. 20 tablet 09/10/20 23 025 Discontinued Active Problems Problem Noted Date Diagnosed Date Depression, unspecified 04/07/2024 Assessment & Plan (04/10/2024 4:38 PM EDT): During IBH Consult Richar presenting with depressed mood, loss of interests/pleasure , trouble concentrating, fatigue/loss of energy, difficulty concentrating and sadness when talking about his mom; for a period of 18+ mo, for all symptoms in the context of and illness or family illness. Richar had presentation of bereavement sxs and reports the passing of his mom was very difficult. 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 PLAN: (check all that apply) Further services needed, but declined Behavioral Health Integration Plan Internal Follow up with [facility] Patient Self Plan Patient to utilize skills provided in intervention , [facility], and Patient to reach out to [facility] as needed. Pt will follow-up with clinician per his request. Unsure of external referrals for now. Bereavement 04/07/2024 Assessment & Plan (04/10/2024 4:38 PM EDT): During IB Consult Richar presenting with depressed mood, loss of interests/pleasure , trouble concentrating, fatigue/loss of energy, difficulty concentrating and sadness when talking about his mom; for a period of 18+ mo, for all symptoms in the context of and illness or family illness. Richar had presentation of bereavement sxs and reports the passing of his mom was very difficult. 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 PLAN: (check all that apply) Further services needed, but declined Behavioral Health Integration Plan Internal Follow up with [facility] Patient Self Plan Patient to utilize skills provided in intervention , Patient to reach out to [facility] team as needed, and Patient to reach out to [facility] as needed. Pt will follow-up with clinician per his request. Unsure of external referrals for now. Meningioma 01/21/2024 Assessment & Plan (01/21/2024 8:24 PM EDT): Head CT Dec 2013: 9mm circumscribed hyperdense focus in left parietal love c/w small meningioma. Head CT April 2018: There is a 0.8 cm parafalcine mass posteriorly, which is most consistent with a meningioma. Referral to Neurology sent Constipation 04/11/2018 Dental caries 02/23/2014 Joint pain 04/28/2013 Atherosclerosis of coronary artery 09/24/2012 Assessment & Plan (01/21/2024 8:23 PM EDT): -ED visit 01/12/24 to [facility] for paresthesias and chest pain. R/o TIA workup and ACS. Plan to follow up with Cardiology as scheduled 02/14/24. ED precautions reviewed Chronic bilateral low back pain with right-sided sciatica 09/24/2012 Assessment & Plan (10/16/2022 3:21 PM EST): Patient with hx of chronic back pain, he refers he was being followed by pain management but refused further treatment since he was not feeling any improvement. Will provide meloxicam to be taken PRN, also told to rest, apply ice and will refer to PT. Bilateral pain of leg and foot 01/24/2012 Diabetes mellitus 01/24/2012 Assessment & Plan (01/21/2024 8:23 PM EDT): Lab Results Component Value Date HGBA1C 10.3 (A) 12/11/2023 -Recently restarted medications, will not make any dose adjustments today -Continues with metformin, dapaglifozin, and glipizide -Encouraged importance of good BG control and lifestyle interventions -Follow up with PCP Assessment & Plan (09/29/2023 7:44 PM EST): Lab Results Component Value Date HGBA1C 9.7 (A) 06/27/2023 -Continues with metformin and glipizide -encouraged importance of good BG control and lifestyle interventions -Follow up with PCP Pure hypercholesterolemia 01/24/2012 Varicose veins of lower extremity 01/24/2012 Resolved Problems Problem Noted Date Diagnosed Date Resolved Date Persistent cough 09/03/2018 04/03/2023 Encounters Date Type Department Care Team Description 12/11/2024 10:15 AM EST Office Visit [facility] [address] [place] [address] Johana Nelson MD Gastroesophageal reflux disease without esophagitis (Primary Dx); Type 2 diabetes mellitus without complication, without long-term current use of insulin ([facility]/HCC); Encounter for annual wellness visit; Encounter for screening for malignant neoplasm of colon; Screening-pulmonary TB 12/11/2024 Travel 12/10/2024 Patient Outreach [facility] [address] [place] [address] Johana Nelson MD Transition Of Care (Tcm) 12/09/2024 10:00 AM EST Office Visit [facility] [address] [place] [address] Lesli Piña Encounter for dental examination (Primary Dx) 12/09/2024 Refill [facility] [address] [place] [address] Johana Nelson MD 12/07/2024 Telephone [facility] [address] [place] [address] Johana Nelson MD Transition Of Care (Tcm) 12/04/2024 Telephone [facility] [address] [place] [address] Priscilla Stevens, LOUANN 12/04/2024 Telephone [facility] [address] [place] [address] Johana eNlson MD Annual Exam 11/24/2024 Orders Only [facility] [address] [place] [address] Johana Nelson MD 11/20/2024 Telephone [facility] [address] [place] [address] Johana Nelson MD Medication Question 11/19/2024 Telephone [facility] [address] [place] [address] Lesli Piña 11/10/2024 Orders Only [facility] [address] [place] [address] Johana Nelson MD Type 2 diabetes mellitus without complications (CMS/HCC) 11/09/2024 Telephone [facility] [address] [place] [address] Johana Nelson MD Medication Question 09/30/2024 Orders Only [facility] [address] [place] [address] Keshia Frances MD Type 2 diabetes mellitus without complication, without long-term current use of insulin (CMS/HCC) (Primary Dx); Type 2 diabetes mellitus without complications (CMS/HCC) 09/10/2024 Telephone [facility] [address] [place] [address] Shanique Golden DDS from Last 3 Months Immunizations Name Administration Dates Next Due Influenza High-dose Quadriva lent Preservative Free 08/15/2023,08/10/2021,08/17/2020 Influenza injectable quadriv alent IIV4 with preservative 09/22/2019,08/19/2018,09/16/2017,09/03,08/02/2015 Influenza injectable quadriv alent preservative free 08/02/2022 Influenza, High Dose Seasona l, Preservative Free 09/03/2024 Influenza, IIV3, injectable 07/16/2014 Influenza, Split (incl. yolette fied surface antigen) 09/04/2013,07/16/2012 Moderna Covid-19 Vaccine 12+ 09/27/2021,02/09/20 21,01/11/2021 Pneumococcal Conjugate PCV 13 09/22/2019 Pneumococcal Conjugate PCV 20 10/07/2023 Pneumococcal Polysaccharide PPSV23 01/23/2013,,07/04/2004 RSV Bivalent 11/12/2023 TD (adult), 2 Lf tetanus tox oid, preservative free, adsorbed 02/08/2006 Tdap 05/15/2016 Zoster, Recombinant 11/12/2023,09/10/2023 Zoster, live 05/18/2014 Social History Tobacco Use Types Packs/Day Years Used Date Smoking Tobacco: Former Cigarettes Passive Smoke Exposure: Past Smokeless Tobacco: Never Tobacco Cessation:Counseling Given: Not Answered Alcohol Use Standard Drinks/Week Comments Not Currently 0 (1 standard drink = 0.6 oz pur e alcohol) Depression Answer Date Recorded Patient Health Questionnaire-9 Score 7 04/10/2024 Patient Health Questionnaire-9 Score 7 04/10/2024 Last PHQ-9: Questionnaire Data Not on file 0 04/10/2024 Housing Stability Answer Date Recorded What is your housing situation today? I have emil luciano 08/23/[address] you li ve. Do you have problems with any of the following? None of the above 08/23/2023 Food Insecurity Answer Date Recorded Within the past 12 months, y ou worried that your food would run out before you got money to buy more: Never True 08/23/2023 Within the past 12 months,th e food you bought just didn't last and you didn't have enough money to get more: Never True Transportation Answer Date Recorded In the past 12 months, has l ack of transportation kept you from medical appts, meetings, work or from getting things needed for daily living? No 08/23/2023 Utilities Answer Date Recorded In the past 12 months, has t he electric, gas, oil or water company threatened to shut off services in your home? No 08/23/2023 Depression Answer Date Recorded Patient Health Questionnaire-2 Score 3 04/10/2024 Sex and Gender Information Value Date Recorded Sex Assigned at Male 09/03/2022 10:17 AM EDT Legal Sex Male 10:17 AM EDT Gender Identity Male 09/03/2022 10:17 AM EDT Sexual Orientation Straight 09/03/2022 10 :17 AM EDT Last Filed Vital Signs Vital Sign Reading Time Taken Comments Blood Pressure 136/72 12/11/2024 9:44 AM EST Pulse 55 12/11/2024 9:44 AM EST Temperature 36.1 ??C (97 ??F) 12/11/2024 9:44 AM EST Respiratory Rate 20 12/11/2024 9:44 AM EST Oxygen Saturation 98% 12/11/2024 9:44 AM EST Inhaled Oxygen Concentration - - Weight 71.2 kg (157 lb) 12/11/2024 9:44 AM EST Height 167.6 cm (5' 6 ) 12/11/2024 9:44 AM EST Body Mass Index 25.34 12/11/2024 9:44 AM EST Plan of Treatment Upcoming Encounters Date Type Department Care Team (Late st Contact Info) Description 12/23/2024 1:00 PM EST Office Visit [facility] [address] [place] [address] Mohsen King [address] [place] [address] Health Maintenance Due Date Last Done Comments CT Colonography 1952 FIT DNA/Cologuard 1952 FIT 1952 FOBT 1952 Sigmoidoscopy 1952 Diabetes: Foot Exam 1962 Eye Exam 1962 Alcohol/Substance Use Screening 1964 Diabetes: Urine Protein Screening 11/15/2022 11/15/2021, 03/01/2021, 11/28/2020, Additional history exists Colonoscopy 04/26/2023 04/26/2020 Colorectal Cancer Screening 04/26/2023 COVID-19 Vaccine ( season) 2024 09/27/2021, 02/08/2021, 01/11/2021 Diabetes: Hemoglobin A1C 03/10/2025 025, 09/03/2024, 04/20/2024, Additional history exists Depression Screening 04/10/2025 04/10/2024, 04/10/20 SDOH Screening 04/10/2025 04/10/2024 Lipid Panel 05/20/2025 05/20/2024, 0612/2022, 08/02/2022, Additional history exists Dental Oral Exam 06/09/2025 12/09/2024, , 08/20/2017, Additional history exists Dental Prophylaxis 06/09/2025 12/09/2024, 0 01/15/2024, 08/20/2016, Additional history exists Dental X-Ray: Bitewings 12/10/2025 12/09/19, 01/15/2024, 08/20/2017, Additional history exists Tobacco Screening 12/11/2025 12/11/2024 DTaP/Tdap/Td Vaccines (2 - Td or Tdap) 05/15/2026 05/15/2016, 02/08/2006 Dental X-Ray: Full Mouth 01/15/2027 024, 12/06/2023, 12/29/2008 Hepatitis C Screening Completed 02/26/2022 Pneumococcal Vaccine: 50+ Years Completed 10/07/2023, 09/22/2019, 01/23/2013, Additional history exists RSV Patients and Patients Aged 60 years or older Completed 11/12/2023 Zoster Vaccines Completed 11/12/2023, 05/2023, 05/18/2014 Influenza Vaccine Completed 09/03/2024, , 08/02/2022, Additional history exists HIB Vaccines Aged Out No longer eligi ble based on patient's age to complete this topic HPV Vaccines Aged Out No longer eligi ble based on patient's age to complete this topic Hepatitis A Vaccines Aged Out No long er eligible based on patient's age to complete this topic Hepatitis B Vaccines Aged Out No long er eligible based on patient's age to complete this topic IPV Vaccines Aged Out No longer eligi ble based on patient's age to complete this topic Meningococcal Vaccine Aged Out No julius jigna eligible based on patient's age to complete this topic RSV under 20 months Aged Out No longe r eligible based on patient's age to complete this topic Rotavirus Vaccines Aged Out No longer eligible based on patient's age to complete this topic Procedures Procedure Name Priority Date/Time Associated Diagnosis Comments POCT GLYCATED HEMOGLOBIN, TOTAL Routine 12/11/2024 9:47 AM EST Type 2 diabetes mellitus without complication, without long-term current use of insulin (CMS/HCC) POCT GLUCOSE Routine 12/11/2024 9:46 AM EST Type 2 diabetes mellitus without complication, without long-term current use of insulin (CMS/HCC) COMPREHENSIVE PERIODONTAL EVALUATION - NEW OR ESTABLISHED PATIENT Routine 12/09/2024 10:00 AM EST PERIODIC ORAL EVALUATION - ESTABLISHED PATIENT Routine 12/09/2024 10:00 AM EST INTRAORAL - PERIAPICAL EACH ADDITIONAL RADIOGRAPHIC IMAGE Routine 12/09/2024 10:00 AM EST INTRAORAL - PERIAPICAL FIRST RADIOGRAPHIC IMAGE Routine 12/09/2024 10:00 AM EST BITEWINGS - 4 RADIOGRAPHIC IMAGES Routine 12/09/2024 10:00 AM EST ORAL HYGIENE INSTRUCTIONS Routine 12/09/2024 10:00 AM EST PROPHYLAXIS - ADULT Routine 12/09/2024 1 0:00 AM EST LIPID PANEL, STANDARD Routine 05/20/2024 7:19 AM EDT Type 2 diabetes mellitus without complication, without long-term current use of insulin (CMS/HCC) DIAGNOSTIC - DIAGNOSTIC IMAGING - INTRAORAL - COMPREHENSIVE SERIES OF RADIOGRAPHIC IMAGES Routine 01/15/2024 11:00 AM EDT ZZZ HISTORICAL HEPATITIS C AB W/REFL TO HCV RNA, QN, PCR Routine 02/26/2022 9:16 AM EDT ALBUMIN, RANDOM URINE W/CREATININE Routine 11/15/2021 8:57 AM EST HM COLONOSCOPY Routine 04/26/2020 10:25 AM EDT from Last 3 Months or Most Recently Relevant to Health Maintenance Results * (ABNORMAL) POCT HGB A1C (12/11/2024 9:47 AM EST) Hemoglobin A1C 9.4(A) 4.0 - 6.0 % QC Media Lot # [id number] Lot# Expiration Date ,465 Blood 12/11/2024 9:47 AM EST Johana Nelson MD POINT OF CARE TEST ENTER/EDIT OR DERABLES Final Result * POCT Glucose (12/11/2024 9:46 AM EST) Glucose Blood, POC 198 60 - 200 mg/dL QC Media Lot # [id number] Lot# Expiration Date 01,005 Blood Capillary blood specimen / Unknown 12/11/2024 9:46 AM EST Johana Nelson MD POINT OF CARE TEST ENTER/EDIT OR DERABLES Final Result * Lipid Panel, Standard (05/20/2024 7:19 AM EDT) Triglycerides 69 <150 mg/dL [facility] Comment:Desirable Triglyceri de: less than 150 mg/dLBorderline High Triglyceride 150-199 mg/dLHigh Triglyceride: 200-499 mg/dLVery High Triglyceride: greater than or equal to 5OO mg/dL Cholesterol 160 <200 mg/dL [facility] Comment:Desirable Cholestero l: less than 200 mg/dLBorderline High Cholesterol: 200-239 mg/dLHigh Cholesterol: greater than 239 mg/dL LDL Cholesterol Calculated 85 <100 mg/dL [facility] Comment:Desirable LDL: less than 100 mg/dLNear Optimal/Above Optimal LDL: 110- 129 mg/dLBorderline High LDL: 130-159 mg/dLHigh LDL: 160-189 mg/dLVery High LDL: greater than or equal to 190 mg/dL HDL Cholesterol 62 >40 mg/dL [facility] Comment:Desirable HDL: great er than 40 mg/dL Note: This HDL assay may give artificially low results in patients with liver disease. Blood Venous blood specimen / Unknown 05/20/2024 7:19 AM EDT 05/20/2024 7:19 AM EDT us Johana Nelson MD LAB BLOOD ORDERABLES Final Resul t Performing Organization Address City/[facility]/ZIP Co de Phone Number [facility] [address] [place] [address] [phone] * HEPATITIS C AB W/REFL TO HCV RNA, QN, PCR (02/26/2022 9:16 AM EDT) HEPATITIS C ANTIBODY NON-REACT DEB NON-REACT DEB [facility] INDEX 0.02 <1.00 [facility] Comment: ?? HCV antibody was non-reactive. There is no laboratory ?? evidence of HCV infection. ?? In most cases, no further action is required. However, if recent HCV exposure is suspected, a test for HCV RNA (test code 07910) is suggested. ?? For additional information please refer to http://education.Make YES! Happen/faq/FIO45h1 (This link is being provided for informational/ educational purposes only.) ?? 02/26/2022 9:16 AM EDT us Georgie Bardales MD HISTORICAL/NON ORDERABLE LABS Final Result Performing Organization Address City/[facility]/ZIP Co de Phone Number [facility] [address] * ALBUMIN, RANDOM URINE W/CREATININE (11/15/2021 8:57 AM EST) Microalbumin Urine 0.6 See Note: mg/dL [facility] Comment: Reference Range: ?? Reference Range Not established Microalb/Creat Ratio 3 <30 mcg/mg creat [facility] Comment: ?? The ADA defines abnormalities in albumin excretion as follows: ?? Albuminuria Category ?Result (mcg/mg creatinine) ?? Normal to Mildly increased ?? <30 Moderately increased ? 30-299 ?? Severely increased ? > OR = 300 ?? The ADA recommends that at least two of three specimens collected within a 3-6 month period be abnormal before considering a patient to be within a diagnostic category. Creatinine, Urine 182 20 - 320 mg/dL [facility] 11/15/2021 8:57 AM EST Johana Nelson MD LAB URINE ORDERABLES Final Resul t [facility] [address] [place] [address], * Hm Colonoscopy (04/26/2020 10:25 AM EDT) Historical Provider HEALTH MAINTENANCE Final Result from Last 3 Months or Most Recently Relevant to Health Maintenance Insurance [facility] STANDARD [employer]-SNP [facility] D[facility] - [employer] [facility] [place] [address] Care Teams Blowing Weasand Relationship Specialty Start Date End Date Johana Nelson MD [address] [place] [address] [place] [address] PCP - General Family Medicine 09/24/12
--- OUTSIDE RECORDS SUMMARY | 2024-12-11 11:15 | XMS_ITS | Encounter Summary ---
Author Organization [facility] Address [address] [place] [address] [address] [place] [address] Care Team Providers Care Cutting Machine Operator Name Role Phone Johana Nelson MD Primary Care Provider [phone] Encounter Details Date Type Department Care Team (Late st Contact Info) Description 11/27/2022 Orders Only [facility] [address] [place] [address] Prem Yousif, PharmD Social History Tobacco Use Types Packs/Day Years Used Date Smoking Tobacco: Never Assessed Sex and Gender Information Value Date Recorded Sex Assigned at Male 09/03/2022 10:17 AM EDT Legal Sex Male 10:17 AM EDT Gender Identity Male 09/03/2022 10:17 AM EDT Sexual Orientation Straight 09/03/2022 10 :17 AM EDT documented as of this encounter Plan of Treatment Upcoming Encounters Date Type Department Care Team (Late st Contact Info) Description 12/23/2024 1:00 PM EST Office Visit [facility] [address] [place] [address] Mohsen King [address] [place] [address] documented as of this encounter Visit Diagnoses Not on filedocumented in this encounter Care Teams Cutting Machine Operator Relationship Specialty Start Date End Date Johana Nelson MD [address] [place] [phone] PCP - General Family Medicine 09/24/12 documented as of this encounter
--- OUTSIDE RECORDS SUMMARY | 2024-12-11 11:15 | XMS_ITS | Encounter Summary ---
Author Organization [employer] Address 75 [facility] 7t [place] [address] Care Team Providers Care Relay Man Name Role Phone Johana Nelson MD Primary Care Provider [phone] Encounter Details Date Type Department Care Team (Latest Contact Info) Description 12/11/2024 Travel Social History Tobacco Use Types Packs/Day Years [...] Description 12/23/2024 1:00 PM EST Office Visit [facility] ADULT DENTAL [address] [place] [address] Mohsen King [address] [place] [address] documented as of this encounter Visit Diagnoses Not on filedocumented in this encounter Additional Health Concerns Assessment Noted Time PHQ-9 Depression Total Score: 7 04/10/20 24 4:28 PM EDT documented as of this encounter Care Teams Relay Man Relationship Specialty Start Date End Date Johana Nelson MD [address] [place] [address] PCP - General Family Medicine 09/24/12 documented as of this encounter
--- OUTSIDE RECORDS SUMMARY | 2024-12-11 11:15 | XMS_ITS | Encounter Summary ---
Author Organization [employer] Address 75 [facility] 7 [place] [address] Care Team Providers Care Feather Edger Name Role Phone Johana Nelson MD Primary Care Provider [phone] Reason for Visit * Reason Comments Med Refill Encounter Details Date Type Department Care Team (Late st Contact Info) Description 03/06/2023 Refill [facility] MEDICINE [address] [place], [place] [phone] Aron Grijalva MD [address] [place], [place] [phone] Social History Tobacco Use Types Packs/Day Years Used Date Smoking Tobacco: Former Cigarettes Smokeless Tobacco: Never Alcohol Use Standard Drinks/Week [...] Description 12/23/2024 1:00 PM EST Office Visit [facility] CHC ADULT DENTAL [address] [place], [place] [phone] Mohsen King 505 [place], [place] [phone] documented as of this encounter Visit Diagnoses Not on filedocumented in this encounter Additional Health Concerns Assessment Noted Time PHQ-9 Depression Total Score: 5 12/12/19 23 10:17 AM EST documented as of this encounter Care Teams Feather Edger Relationship Specialty Start Date End Date Johana Nelson MD [address] [place] [address] PCP - General Family Medicine 09/24/12 documented as of this encounter
--- OUTSIDE RECORDS SUMMARY | 2024-12-11 11:16 | XMS_ITS | Encounter Summary ---
Author Organization [employer] Address 75 [facility] 7t [place] [address] Care Team Providers Care Regular Senior Care Provider Name Role Phone Johana Nelson MD Primary Care Provider [phone] Reason for Visit * Reason Comments Routine Cleaning Dental Exam Encounter Details Date Type Department Care Team (Late st Contact Info) Description 12/09/2024 10:00 AM EST Office Visit [facility] ADULT DENTAL [address] [place] [address] Lesli Piña Encounter for dental examination (Primary Dx) Social History Tobacco Use Types Packs/Day Years [...] AM EDT documented as of this encounter Last Filed Vital Signs Vital Sign Reading Time Taken Comments Blood Pressure 132/78 12/09/2024 9:33 AM EST Pulse - - Temperature - - Respiratory Rate - - Oxygen Saturation - - Inhaled Oxygen Concentration - - Weight - - Height - - Body Mass Index - - documented in this encounter Progress Notes * Lesli Piña - 12/09/2024 10:00 AM EST Patient ID: Richar Aguilar is a 74 y.o. male. Time Out: Timeout Date: 12/09/24, Timeout Time: 933 Location: [facility] Tooth: Maxilla and Mandible Procedure: Exam, X-rays, and Prophylaxis Verified the above with patient, orthotics assistant, and provider. Confirmed via patient's chart, intraorally and by radiographs. Shove Up: Yes. Language: Pashto. Shove Up's Name: Nickie. Medical Hx: Vitals: Blood pressure 132/78. Medications, Med Hx reviewed with patient and updated in chart. Treatment Provided Dental procedures in this visit D1110 - PROPHYLAXIS - ADULT (Completed) Service provider: Lesli Borjas provider: Mohsen King D1330 - ORAL HYGIENE INSTRUCTIONS (Completed) Service provider: Lesli Borjas provider: Mohsen King D0274 - BITEWINGS - 4 RADIOGRAPHIC IMAGES (Completed) Service provider: Lesli Borjas provider: Mohsen King D0220 - INTRAORAL - PERIAPICAL FIRST RADIOGRAPHIC IMAGE (Completed) Service provider: Lesli Borjas provider: Mohsen King D0230 - INTRAORAL - PERIAPICAL EACH ADDITIONAL RADIOGRAPHIC IMAGE (Completed) Service provider: Lesli Borjas provider: Mohsen King Instruments Used: Ultrasonic Scalers and Prophy angle Fluoride: N/A Oral Cancer Screening: No lesions Head/Neck Exam: No Lesions Calculus: Moderate and Generalized Plaque: Light and Generalized Stain: Light and Generalized Bleeding: Light and Generalized Gingiva: Healthy, Perio Charting Completed, Bleeding on probing, and Recession- generalized OH: Fair Perio Chart: Completed Dental exam done by Dr. King. Oral hygiene instructions provided to patient including brushing technique and flossing. Recommendations: Byron two times daily, modified aldana technique, Floss daily, Electric toothbrush, Soft bristle toothbrush, Byron Tongue, Anti-sensitivity toothpaste Recall Frequency: 6 mo NV: Restorations Hygienist: Lesli Piña RDH * Mohsen King - 12/09/2024 10:00 AM EST Images from the original note were not included. Dental procedures in this visit D1110 - PROPHYLAXIS - ADULT (Completed) Service provider: Lesli Borjas provider: Mohsen King D1330 - ORAL HYGIENE INSTRUCTIONS (Completed) Service provider: Lesli Borjas provider: Mohsen King D0274 - BITEWINGS - 4 RADIOGRAPHIC IMAGES (Completed) Service provider: Lesli Borjas provider: Mohsen King D0220 - INTRAORAL - PERIAPICAL FIRST RADIOGRAPHIC IMAGE (Completed) Service provider: Lesli Borjas provider: Mohsen King D0230 - INTRAORAL - PERIAPICAL EACH ADDITIONAL RADIOGRAPHIC IMAGE (Completed) Service provider: Lesli Borjas provider: Mohsen King D0120 - PERIODIC ORAL EVALUATION - ESTABLISHED PATIENT (Completed) Service provider: Mohsen King Billing provider: Mohsen King D0180 - COMPREHENSIVE PERIODONTAL EVALUATION - NEW OR ESTABLISHED PATIENT (Completed) Service provider: Mohsen King Billmohan provider: Mohsen King Patient ID: Richar Aguilar is a 74 y.o. male. Time Out: Timeout Date: 12/09/24, Timeout Time: 933 Location: [facility] Tooth: Maxilla and Mandible Procedure: Exam Verified the above with patient, orthotics assistant, and provider. Confirmed via patient's chart, intraorally and by radiographs. Shove Up: Yes. Language: Pashto. Shove Up's Name: Nickie Chief Complaint Patient presents with Routine Cleaning Dental Exam Medical Hx: Vitals: Blood pressure 132/78. Past Medical History: Diagnosis Date Diabetes ([facility]) High blood pressure Medications: Outpatient Encounter Medications as of 12/09/2024 Medication Sig Dispense Refill Alcohol Swabs (Alcohol Prep) 70 % pads USE TWO TO THREE DAILY 90 each 11 Aspirin Adult Low Strength 81 MG EC tablet TAKE ONE TABLET EVERY MORNING 90 tablet 1 celecoxib (CeleBREX) 50 MG capsule Take 1 capsule (50 mg) by mouth 2 times daily. 60 capsule 0 cholecalciferol (Vitamin D-3) 125 MCG (5000 UT) capsule TAKE ONE CAPSULE BY MOUTH ONCE WEEKLY SATURDAY MORNING 4 capsule 4 Cobalamin Combinations (B-12 + Folic Acid) 2500-400 MCG tablet dispersible TAKE ONE TABLET EVERY MORNING 30 tablet 11 dapagliflozin (Farxiga) 5 MG Take 1 tablet (5 mg) by mouth in the morning. 30 tablet 11 Diclofenac Sodium (Voltaren) 1 % gel Use topical BID 100 g 3 Easy Touch Lancets 33G/Twist misc USE TO TEST BLOOD SUGAR TWO TO THREE TIME DAILY DIRECTED 90 each 11 ezetimibe (Zetia) 10 MG tablet TAKE ONE TABLET EVERY MORNING 90 tablet 1 famotidine (Pepcid) 20 MG tablet TAKE ONE TABLET TWICE DAILY IN THE MORNING AND AT BEDTIME 60 tablet 1 finasteride (Proscar) 5 MG tablet Take 1 tablet by mouth in the morning. gabapentin (Neurontin) 100 MG capsule TAKE TWO CAPSULES BY MOUTH TWICE DAILY IN THE MORNING AND AT BEDTIME 120 capsule 11 glucose blood (FREESTYLE LITE) test strip TEST BLOOD SUGAR once DAILY DIRECTED 100 strip 11 glucose blood test strip To check the blood sugar once a day 100 each 12 Lancets misc Use to test blood sugar 1 time daily 100 each 11 lisinopril 10 MG tablet Take 10 mg by mouth in the morning. metFORMIN (Glucophage) 1000 MG tablet Take 1 tablet (1,000 mg) by mouth with breakfast and with evening meal. 180 tablet 3 metoprolol tartrate (Lopressor) 25 MG tablet TAKE 1/2 TABLET TWICE DAILY IN THE MORNING AND AT BEDTIME 30 tablet 3 nitroglycerin (Nitrostat) 0.[address] 1 tablet under the tongue every 5 (five) minutes if needed for chest pain. DO NOT EXCEED A TOTAL OF 3 DOSES IN 15 MINUTES nitroglycerin (Nitrostat) 0.[address] 1 tablet (0.4 mg) under the tongue every 5 (five) minutes if needed for chest pain. 60 tablet 0 tamsulosin (Flomax) 0.4 MG 24 hr capsule Take 1 capsule (0.4 mg) by mouth Once per day. 90 capsule 1 atorvastatin (Lipitor) 20 MG tablet Take 1 tablet by mouth before breakfast. cetirizine (ZyrTEC) 10 MG tablet Take 1 tablet (10 mg) by mouth in the morning. 30 tablet 5 glipiZIDE (Glucotrol) 10 MG tablet Take 1 tablet (10 mg) by mouth before breakfast and before evening meal. 60 tablet 11 sertraline (Zoloft) 50 MG tablet Take 1 tablet (50 mg) by mouth Once per day. 30 tablet 1 No facility-administered encounter medications on file as of 12/09/2024. 74 y/o male presents for an exam seen by Dr. Mohsen King, DMD. Chief Complaint: I came for cleaning Medical History: Patient does not report any changes in health issues that could alter the Treatment Plan. Medical consult / medical clearance needed: None Allergies: Reviewed in EHR Medications: Reviewed in EHR Radiographs X-rays taken today: 2 PA and 4 BW taken today Discussion: -Pt stated that pt has no pain/sensitivity to hot and cold food and beverages. -Reviewed radiographs with pt. -Upon exam, pt has traumatic bite. -#8 incisal edge fractured; pt mentioned that his filling keeps fracturing and pt's tooth fracturedwhen pt had an accident when pt was 16 yrs old as stated by pt. -Pt was informed that pt has traumatic bite and incisal fillings are prone to fracture. -Supra-erupted #3 and #18, #31 mesially tilted along multiple missing teeth. -Restorations planned as charted. -Pt denied presybeterian on #8 fractured incisal edge and extractions planned in the past along with upper/lower partial dentures recommended post-extractions. -Reviewed perio diagnosis, restorative treatment plan, dental charting, occlusion and oral cancer screening. -Patient is aware that periodontal disease is a progressive non-curable disease. -All treatment efforts are designed to preserve the dentition as long as possible. -OHI reviewed. Emphasis was laid on maintaining good oral hygiene regimen at home along with regular visits to dentist. -Pt understood, was satisfied with our conversation and agreed with tx plan; dismissed in good condition. -All questions answered. Soft tissue exam: WNL ; OCS- negative Head and neck exam: Lymph Nodes, Lips, Palate, Buccal Mucosa, Floor of Mouth, Tongue, Tonsils, Alveolar Ridges, Oropharynx, Salivary Ducts, Vestibules - no abnormal findings. TMJ/Occlusal - TMJ is within normal limits. Oral Cancer Risk - low Oral Hygiene Instruction Provided - Yes Oral Hygiene Instructions: Byron two times daily, modified aldana technique, Floss daily, Electric toothbrush, Soft bristle toothbrush, Byron Tongue. Referrals - None Treatment plan: -restorative -6 month recall All questions answered and expressed understanding. Dismissed in good condition. NV: restorative Hygienist: Lesli Piña RDH Dentist: Dr. Mohsen King, DMD documented in this encounter Plan of Treatment Upcoming Encounters Date Type Department Care Team (Late st Contact Info) Description 12/23/2024 1:00 PM EST Office Visit [facility] ADULT DENTAL [address] [place] [address] Mohsen King [address] [place] [address] Scheduled Orders Name Type Priority Associated Diagnoses Orde r Schedule 4 DO 4 DO RESTORATIVE - RESIN-BASED COMPOSITE RESTORATIONS - DIRECT - RESIN-BASED COMPOSITE - TWO SURFACES, POSTERIOR Dental Routine 1 Occur rences starting 12/09/2024 2 L 2 L RESTORATIVE - RESIN-BASED COMPOSITE RESTORATIONS - DIRECT - RESIN-BASED COMPOSITE - ONE SURFACE, POSTERIOR Dental Routine 1 Occurr ences starting 12/09/2024 11 DFL 11 DFL RESTORATIVE - RESIN-BASED COMPOSITE RESTORATIONS - DIRECT - RESIN-BASED COMPOSITE - THREE SURFACES, ANTERIOR Dental Routine 1 Occu rrences starting 12/09/2024 documented as of this encounter Procedures Procedure Name Priority Date/Time Associated Diagnosis Comments PROPHYLAXIS - ADULT Routine 12/09/2024 1 0:00 AM EST PERIODIC ORAL EVALUATION - ESTABLISHED PATIENT Routine 12/09/2024 10:00 AM EST ORAL HYGIENE INSTRUCTIONS Routine 2024 10:00 AM EST INTRAORAL - PERIAPICAL FIRST RADIOGRAPHIC IMAGE Routine 12/09/2024 10:00 AM EST INTRAORAL - PERIAPICAL EACH ADDITIONAL RADIOGRAPHIC IMAGE Routine 12/09/2024 10:00 AM EST COMPREHENSIVE PERIODONTAL EVALUATION - NEW OR ESTABLISHED PATIENT Routine 12/09/2024 10:00 AM EST BITEWINGS - 4 RADIOGRAPHIC IMAGES Routine 12/09/2024 10:00 AM EST documented in this encounter Visit Diagnoses Diagnosis Encounter for dental examination- Primary documented in this encounter Additional Health Concerns Assessment Noted Time PHQ-9 Depression Total Score: 7 04/10/20 24 4:28 PM EDT documented as of this encounter Care Teams Regular Senior Care Provider Relationship Specialty Start Date End Date Johana Nelson MD [address] [place] [address] PCP - General Family Medicine 09/24/12 documented as of this encounter
--- OUTSIDE RECORDS SUMMARY | 2024-12-11 11:16 | XMS_ITS | Encounter Summary ---
Author Organization [employer] Address [address] [facility] [address] 7t [place] [address] Care Team Providers Care Social Media Coordinator Name Role Phone Johana Nelson MD Primary Care Provider [phone] Encounter Details Date Type Department Care Team (Late st Contact Info) Description 11/19/2024 Telephone [facility] [address] [place] [address] Lesli Piña Social History Tobacco Use Types Packs/Day Years [...] AM EDT documented as of this encounter Miscellaneous Notes * Telephone Encounter - Mamadoudarling Bess - 11/19/2024 10:34 AM EST Called pt to book for prophy with Lesli. Call dropped and unable to get the pt back on the line. If pt calls back please book for prophy with Lesli. documented in this encounter Plan of Treatment Upcoming Encounters Date Type Department Care Team ([facility] st Contact Info) Description 12/23/2024 1:00 PM EST Office Visit [facility] ADULT DENTAL [address] [place] [address] Brian Kingprestanley [address] [place] [address] documented as of this encounter Visit Diagnoses Not on filedocumented in this encounter Additional Health Concerns Assessment Noted Time PHQ-9 Depression Total Score: 7 04/10/20 24 4:28 PM EDT documented as of this encounter Care Teams Social Media Coordinator Relationship Specialty Start Date End Date Johana Nelson MD [address] [place] [address] PCP - General Family Medicine 09/24/12 documented as of this encounter
--- OUTSIDE RECORDS SUMMARY | 2024-12-11 11:16 | XMS_ITS | Encounter Summary ---
Author Organization [employer] Address [address] [place] [address] 7t [place] [address] Care Team Providers Care Naval Architect Specialist Name Role Phone Johana Nelson MD Primary Care Provider [phone] Reason for Visit * Reason Comments Med Refill Encounter Details Date Type Department Care Team (Late Contact Info) Description 06/04/2023 Refill [facility] MEDICINE [address] [place] [place], [place] [phone] Keshia Frances MD [address] [place], [place] [phone] Type 2 diabetes mellitus without complication, without long-term current use of insulin ([facility]) Social History Tobacco Use Types Packs/Day Years [...] Description 12/23/2024 1:00 PM EST Office Visit [facility] CHC ADULT DENTAL [address] [place], [place] [phone] Mohsen King [address] [place], [place] [phone] documented as of this encounter Visit Diagnoses Diagnosis Type 2 diabetes mellitus without complication, without long-term current use of insulin ([facility]) documented in this encounter Additional Health Concerns Assessment Noted Time PHQ-9 Depression Total Score: 5 12/12/19 23 10:17 AM EST documented as of this encounter Care Teams Naval Architect Specialist Relationship Specialty Start Date End Date Johana Nelson MD [address] [place] [address] PCP - General Family Medicine 09/24/12 documented as of this encounter
--- OUTSIDE RECORDS SUMMARY | 2024-12-11 11:16 | XMS_ITS | Encounter Summary ---
Author Organization [employer] Address 75 [facility] 7t [place] [address] Care Team Providers Care Crop Farmers Name Role Phone Johana Nelson MD Primary Care Provider [phone] Encounter Details Date Type Department Care Team ([facility] st Contact Info) Description 09/30/2024 Orders Only [facility] CHC MED & PEDS [address] [place], [place] [phone] Keshia Frances MD [address] [place], [place] [phone] Type 2 diabetes mellitus without complication, without long-term current use of insulin (CMS/HCC) (Primary Dx); Type 2 diabetes mellitus without complications (CMS/HCC) Social History Tobacco Use Types Packs/Day Years [...] 1:00 PM EST Office Visit [facility] ADULT DENTAL [address] [place] [address] Mohsen King [address] [place] [address] documented as of this encounter Visit Diagnoses Diagnosis Type 2 diabetes mellitus without complication, without long-term current use of insulin (CMS/HCC)- Primary Type 2 diabetes mellitus without complications (CMS/HCC) documented in this encounter Additional Health Concerns Assessment Noted Time PHQ-9 Depression Total Score: 7 04/10/20 24 4:28 PM EDT documented as of this encounter Care Teams Crop Farmers Relationship Specialty Start Date End Date Johana Nelson MD [address] [place] [phone] PCP - General Family Medicine 09/24/12 documented as of this encounter
--- OUTSIDE RECORDS SUMMARY | 2024-12-11 11:16 | XMS_ITS | Encounter Summary ---
Author Organization [employer] Address [address] [facility] 7t [place] [address] Care Team Providers Care Impression Printer Name Role Phone Johana Nelson MD Primary Care Provider [phone] Reason for Visit * Reason Comments Transition Of Care (Tcm) Encounter Details Date Type Department Care Team ([facility] st Contact Info) Description 12/10/2024 Patient Outreach [facility] CHC MED & PEDS [address] [place] [address] Johana Nelson MD [address] [place] [address] Transition Of Care (Tcm) Social History Tobacco Use Types Packs/Day Years [...] AM EDT documented as of this encounter Progress Notes * Lillian Arriaza RN - 12/10/2024 1:00 PM EST Transition of Care Note Richar Devon Jeff is going through a recent transition of care. * Lillian Arriaza RN - 12/10/2024 1:00 PM EST Call attempted to Richar Aguilar for [facility] Follow up call. No answer, left voicemail to return call to [facility] PRN. documented in this encounter Plan of Treatment Upcoming Encounters Date Type Department Care Team (Late st Contact Info) Description 12/23/2024 1:00 PM EST Office Visit [facility] ADULT DENTAL [address] [place] [address] Brian Kingeav [address] [place] [address] documented as of this encounter Visit Diagnoses Not on filedocumented in this encounter Additional Health Concerns Assessment Noted Time PHQ-9 Depression Total Score: 7 04/10/20 24 4:28 PM EDT documented as of this encounter Care Teams Impression Printer Relationship Specialty Start Date End Date Johana Nelson MD [address] [place] [address] PCP - General Family Medicine 09/24/12 documented as of this encounter
--- OUTSIDE RECORDS SUMMARY | 2024-12-11 11:16 | XMS_ITS | Encounter Summary ---
Author Organization [employer] Address 75 [facility] 7t [place] [address] Care Team Providers Care Bit Tapper Name Role Phone Johana Nelson MD Primary Care Provider [phone] Encounter Details Date Type Department Care Team ([facility] st Contact Info) Description 12/04/2024 Telephone [facility] CHC MED & PEDS [address] [place] [address] Priscilla Stevens, RN Social History Tobacco Use Types Packs/Day Years [...] is your housing situation today? I have emilbraden luciano 08/23/[address] you [...] encounter Miscellaneous Notes * Telephone Encounter - Priscilla Stevens RN - 12/04/2024 11:56 AM EST Patient walked in to office stating he needs a Tb test and an appointment fr a physical. Tspot labssend and appointment being scheduled for patient by [place]. 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
--- OUTSIDE RECORDS SUMMARY | 2024-12-11 11:16 | XMS_ITS | Encounter Summary ---
Author Organization [employer] Address 75 [facility] 7t [place] [address] Care Team Providers Care Phone Triage Specialist Name Role Phone Johana Nelson MD Primary Care Provider [phone] Encounter Details Date Type Department Care Team ([facility] st Contact Info) Description 11/24/2024 Orders Only [facility] CHC MED & PEDS [address] [place] [address] Johana Nelson MD [address] [place], [place] [phone] Social History Tobacco Use Types Packs/Day Years [...] Description 12/23/2024 1:00 PM EST Office Visit [facility] ADULT DENTAL [address] [place] [address] Mohsen King [address] [place] [address] documented as of this encounter Visit Diagnoses Not on filedocumented in this encounter Additional Health Concerns Assessment Noted Time PHQ-9 Depression Total Score: 7 04/10/20 24 4:28 PM EDT documented as of this encounter Care Teams Phone Triage Specialist Relationship Specialty Start Date End Date Johana Nelson MD [address] [place] [phone] PCP - General Family Medicine 09/24/12 documented as of this encounter
--- OUTSIDE RECORDS SUMMARY | 2024-12-11 11:16 | XMS_ITS | Encounter Summary ---
Author Organization [employer] Address [address] [facility] 7t [place] [address] Care Team Providers Care Cardiac Nurse Practitioner Name Role Phone Johana Nelson MD Primary Care Provider [phone] Encounter Details Date Type Department Care Team (Late st Contact Info) Description 02/24/2024 Orders Only [facility] [address] [place], [place] [id number] ProviderGwen MD Social History Tobacco Use Types Packs/Day Years Used Date Smoking Tobacco: Former Cigarettes Passive Smoke Exposure: Past Smokeless Tobacco: Never Alcohol Use Standard Drinks/Week Comments Not Currently 0 (1 standard drink = 0.6 oz pur e alcohol) Depression Answer Date Recorded Patient Health Questionnaire-9 Score 5 12/12/2022 Housing Stability Answer Date Recorded What is [...] Description 12/23/2024 1:00 PM EST Office Visit [facility] ADULT DENTAL [address] [place] [address] Brian Kingpreet [address] [place] [address] documented as of this encounter Procedures Procedure Name Priority Date/Time Associated Diagnosis Comments US RETROPERITONEAL COMPLETE Routine 03/04/2024 2:19 PM EDT HM COLONOSCOPY Routine 04/26/2020 10:25 AM EDT documented in this encounter Results * US Retroperitoneal Complete (03/04/2024 2:19 PM EDT) Anatomical Region Laterality Modality Ultrasound 03/04/2024 2:19 PM EDT Narrative 03/06/2024 10:36 AM EDT ? [facility] ?[address] ?[place] [address] ? Ultrasound Report ? Signed ? Patient: Devon Aguilar,Richar ?MR#: [id number] ?? [id number] ? : 1950 ?Acct:[id number] ? Age/Sex: 73 / M ?ADM Date: 03/04/24 ? Loc: HO.US ? Attending Dr: Rossy Do MD ? Ordering Physician: Rossy Do MD ?? Date of Service: 03/04/24 ?? Procedure(s): US retroperitoneal comp ?? Accession Number(s): [id number] ? cc: Rossy Do MD; Johana Nelson MD ? EXAMINATION: ?? US RETROPERITONEAL COMPLETE (RENAL) ? CLINICAL INFORMATION: ?? Benign prostatic hyperplasia with lower urinary tract symptoms. ? COMPARISON: ?? None available. ? TECHNIQUE: ?? Real-time imaging of the kidneys and bladder. ? FINDINGS: ? RIGHT KIDNEY: 11.2 x 6.8 x 5.6 cm (SAG x AP x TRV). The kidney is ?? normal in size, contour, and echogenicity. Renal cortical thickness is ?? normal. No renal calculi or hydronephrosis. Multiple simple cysts ?? measuring up to 2.0 cm. No imaging follow-up is recommended. 1.5 cm ?? focal echogenic lesion in the lower pole right kidney. ? LEFT KIDNEY: No kidney is seen in the left renal fossa. ? PELVIC KIDNEY: Located to the right of midline. Pelvic kidney measures ?? 8.8 x 2.7 x 3.0 cm (SAG x AP x TRV). The kidney measures small but this ?? may be due to the pelvic position of the kidney and suboptimal ?? visualization. There is no visible mass. No nephrolithiasis or ?? hydronephrosis. ? BLADDER: Well distended and normal. Bilateral ureteral jets are ?? demonstrated. Prevoid bladder volume is 350 mL. Postvoid bladder volume ?? is 215 mL. ? ADDITIONAL FINDINGS: Enlarged prostate measuring 51 mL. ? US/ retroperitoneal comp ?? IMPRESSION: ?? Right kidney in the right renal fossa. 1.5 cm focal echogenic lesion in ?? the lower pole right kidney. Statistically this is most likely an ?? angiomyolipoma, but no prior imaging is available to assess stability. ?? Follow-up imaging is recommended with CT abdomen without and with ?? contrast as renal cell carcinoma can present as an echogenic mass on ?? ultrasound. ? No kidney in the left renal fossa. ? There is a pelvic kidney located to the right of midline which measures ?? small in size but is otherwise normal in appearance. ? Enlarged prostate. No hydronephrosis. Post void bladder residual 215 ?? mL. ? Dictated By: ?Chidi Díaz MD ? Signed By: ?<Electronically signed by Chidi Díaz MD in OV> ?03/06/242 ? DD/ ? TD/TT: ? Open Claims Representative: JK ? Procedure Note Cliff, Endy - 03/06/[address] [address] Ultrasound Report Signed Patient: Noble Ruiz#: [id number] : 2Acct:[id number] Age/Sex: 73 / MADM Date: 03/04/24 Loc: HO.US Attending Dr: Rossy Do MD Ordering Physician: Rossy Do MD Date of Service: 03/04/24 Procedure(s): US retroperitoneal comp Accession Number(s): [id number] cc: Rossy Do MD; Johana Nelson MD EXAMINATION: US RETROPERITONEAL COMPLETE (RENAL) CLINICAL INFORMATION: Benign prostatic hyperplasia with lower urinary tract symptoms. COMPARISON: None available. TECHNIQUE: Real-time imaging of the kidneys and bladder. FINDINGS: RIGHT KIDNEY: 11.2 x 6.8 x 5.6 cm (SAG x AP x TRV). The kidney is normal in size, contour, and echogenicity. Renal cortical thickness is normal. No renal calculi or hydronephrosis. Multiple simple cysts measuring up to 2.0 cm. No imaging follow-up is recommended. 1.5 cm focal echogenic lesion in the lower pole right kidney. LEFT KIDNEY: No kidney is seen in the left renal fossa. PELVIC KIDNEY: Located to the right of midline. Pelvic kidney measures 8.8 x 2.7 x 3.0 cm (SAG x AP x TRV). The kidney measures small but this may be due to the pelvic position of the kidney and suboptimal visualization. There is no visible mass. No nephrolithiasis or hydronephrosis. BLADDER: Well distended and normal. Bilateral ureteral jets are demonstrated. Prevoid bladder volume is 350 mL. Postvoid bladder volume is 215 mL. ADDITIONAL FINDINGS: Enlarged prostate measuring 51 mL. US/US retroperitoneal comp IMPRESSION: Right kidney in the right renal fossa. 1.5 cm focal echogenic lesion in the lower pole right kidney. 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 Follow-up imaging is recommended with CT abdomen without and with contrast as renal cell carcinoma can present as an echogenic mass on ultrasound. No kidney in the left renal fossa. There is a pelvic kidney located to the right of midline which measures small in size but is otherwise normal in appearance. Enlarged prostate. No hydronephrosis. Post void bladder residual 215 mL. Dictated By: Chidi Díaz MD Signed By: <Electronically signed by Chidi Díaz MD in OV> 03/06/24 1032 DD/ 1419 TD/TT: Open Claims Representative: RICHARD Channing Home External Provider IMG US PROCEDURES Final Result * Hm Colonoscopy (04/26/2020 10:25 AM EDT) Historical Provider HEALTH MAINTENANCE Final Result documented in this encounter Visit Diagnoses Not on filedocumented in this encounter Additional Health Concerns Assessment Noted Time PHQ-9 Depression Total Score: 5 12/12/19 23 10:17 AM EST documented as of this encounter Care Teams Cardiac Nurse Practitioner Relationship Specialty Start Date End Date Johana Nelson MD [address] [place] [address] PCP - General Family Medicine 09/24/12 documented as of this encounter
--- OUTSIDE RECORDS SUMMARY | 2024-12-11 11:16 | XMS_ITS | Encounter Summary ---
Author Organization [employer] Address 75 [facility] 7t [place] [address] Care Team Providers Care Cloth Colorer Name Role Phone Johana Nelson MD Primary Care Provider [phone] Reason for Visit * Reason Onset Date Comments Medication Question 11/20/2024 Encounter Details Date Type Department Care Team ([facility] Contact Info) Description 11/20/2024 Telephone [facility] CHC MED & PEDS 505 [facility] [place] [phone] Johana Nelson MD [address] [place], [place] [phone] Medication Question Social History Tobacco Use Types Packs/Day Years [...] encounter Miscellaneous Notes * Telephone Encounter - Susan Campbell RN - 11/24/2024 11:53 AM EST TC placed to pt to advise and inform that both celexoxib (Celebrex) 50 MG capsule and nitroglycerin(Nitrostat) 0.4 MG SL tablet have been sent to the [facility] pharmacy. Pt stated understanding and had nofurther questions or concerns. * Telephone Encounter - Johana Nelson MD - 11/24/2024 9:21 AM EST SENT * Telephone Encounter - Reina Sanders LPN - 11/20/2024 2:43 PM EST Please review request celebrex has an notification and the I did not see nitroglycerin having been prescribed previously * Telephone Encounter - Teja Vyas - 11/20/2024 2:31 PM EST Pt walked in with a note from [facility]-nurse requesting to be prescribed nitroglycerin 0.4 mg as needed for chest pains and Celebrex for arthritic pains. documented in this encounter Plan of Treatment Upcoming Encounters Date Type Department Care Team (Late st Contact Info) Description 12/23/2024 1:00 PM EST Office Visit [facility] ADULT DENTAL [address] [place] [address] Brian Kingeva [address] [place] [address] documented as of this encounter Visit Diagnoses Not on filedocumented in this encounter Additional Health Concerns Assessment Noted Time PHQ-9 Depression Total Score: 7 04/10/20 24 4:28 PM EDT documented as of this encounter Care Teams Cloth Colorer Relationship Specialty Start Date End Date Johana Nelson MD [address] [place] [address] PCP - General Family Medicine 09/24/12 documented as of this encounter
--- OUTSIDE RECORDS SUMMARY | 2024-12-11 11:16 | XMS_ITS | Encounter Summary ---
Author Organization [employer] Address [address] [facility] [address]t [place] [address] Care Team Providers Care Briquetter Operator Name Role Phone Johana Nelson MD Primary Care Provider [phone] Reason for Visit * Reason Onset Date Comments Transition Of Care (Tcm) 12/07/2024 Encounter Details Date Type Department Care Team ([facility] st Contact Info) Description 12/07/2024 Telephone [facility] CHC MED & PEDS [address] [place] [address] Johana Nelson MD [address] [facility] [place] [facility] [place] [address] Transition Of Care (Tcm) Social History Tobacco [...] encounter Miscellaneous Notes * Telephone Encounter - Brielle Gaines [place] - 12/07/2024 11:43 AM EST Booked an adult care for Program on 12/11/2024 at 10:15 am. Agreed with date. documented in this encounter Plan of Treatment Upcoming Encounters Date Type Department Care Team (Late st Contact Info) Description 12/23/2024 1:00 PM EST Office Visit [facility] ADULT DENTAL [address] [place] [address] Alin Kinganai [address] [place] [address] documented as of this encounter Visit Diagnoses Not on filedocumented in this encounter Additional Health Concerns Assessment Noted Time PHQ-9 Depression Total Score: 7 04/10/20 24 4:28 PM EDT documented as of this encounter Care Teams Briquetter Operator Relationship Specialty Start Date End Date Johana Nelson MD [address] [place] [address] PCP - General Family Medicine 09/24/12 documented as of this encounter
--- OUTSIDE RECORDS SUMMARY | 2024-12-11 11:16 | XMS_ITS | Encounter Summary ---
Author Organization [employer] Address [address] [facility] 7t [place] [address] Care Team Providers Care Manufacturing Plant Manager Name Role Phone Johana Nelson MD Primary Care Provider Reason for Visit * Reason Onset Date Comments Med Refill 12/09/2024 Encounter Details Date Type Department Care Team ([facility] st Contact Info) Description 12/09/2024 Refill [facility] CHC MED & PEDS [address] [place] [address] Johana Nelson MD [address] [place] [address] Social History Tobacco Use Types Packs/Day Years [...] encounter Miscellaneous Notes * Telephone Encounter - Litzy Montano - 12/09/2024 10:22 AM EST glipiZIDE (Glucotrol) 10 MG tablet documented in this encounter Plan of Treatment Upcoming Encounters Date Type Department Care Team (Late st Contact Info) Description 12/23/2024 1:00 PM EST Office Visit [facility] ADULT DENTAL [address] [place] [address] Mohsen King [address] [place] [address] documented as of this encounter Visit Diagnoses Not on filedocumented in this encounter Additional Health Concerns Assessment Noted Time PHQ-9 Depression Total Score: 7 04/10/20 24 4:28 PM EDT documented as of this encounter Care Teams Manufacturing Plant Manager Relationship Specialty Start Date End Date Johana Nelson MD [address] [place] [address] PCP - General Family Medicine 09/24/12 documented as of this encounter
--- OUTSIDE RECORDS SUMMARY | 2024-12-11 11:16 | XMS_ITS | Encounter Summary ---
Author Organization [employer] Address [address] [place] [address] 7t [place] [address] Care Team Providers Care Salesperson Furniture Name Role Phone Johana Nelson MD Primary Care Provider [phone] Reason for Referral * Consultation (Routine) - Pending Review Specialty Diagnoses / Procedures Referred By Nima chicas Referred To Contact Gastroenterology Diagnoses Encounter for screening for malignant neoplasm of colon Johana Nelson MD [address] [facility] [place] [address] Phone: tel: fax: Referral ID Status Reason Start Date Expiration Date Visits Requested Visits Authorized [id number] Pending Review Specialty Services Required 12/11/2024 12/11/2025 1 1 Reason for Visit * Reason Comments Adult Care Diabetes Encounter Details Date Type Department Care Team (Latest Contact Info) Description 12/11/2024 10:15 AM EST Office Visit [facility] CHC MED & PEDS [address] [facility] [place] [address] Johana Nelson MD [address] [place] [address] Gastroesophageal reflux disease without esophagitis (Primary Dx); Type 2 diabetes mellitus without complication, without long-term current use of insulin ([facility]); Encounter for annual wellness visit; Encounter for screening for malignant neoplasm of colon; Screening-pulmonary TB Social History Tobacco Use Types Packs/Day Years [...] Mass Index 25.34 12/11/2024 9:44 AM EST documented in this encounter Progress Notes * Johana Nelson MD - 12/11/2024 10:15 AM EST Subjective Patient ID: Richar Aguilar is a 74 y.o. male who presents for Adult Care and Diabetes. Diabetes There are no hypoglycemic associated symptoms. There are no diabetic associated symptoms. There areno diabetic complications. GERD He complains of abdominal pain, heartburn and nausea. This is a chronic problem. The current episode started 1 to 4 weeks ago. The problem has been gradually worsening. The heartburn is located in the substernum. The heartburn wakes him from sleep. The symptoms are aggravated by certain foods and stress. He has tried a PPI for the symptoms. The treatment provided moderate relief. Review of Systems Constitutional: Negative. Respiratory: Negative. Cardiovascular: Negative. Gastrointestinal: Positive for abdominal pain, heartburn and nausea. Genitourinary: Negative. Objective Physical Exam Constitutional: Appearance: Normal appearance. Cardiovascular: Rate and Rhythm: Normal rate and regular rhythm. Pulmonary: Effort: Pulmonary effort is normal. Breath sounds: Normal breath sounds. Neurological: General: No focal deficit present. Mental Status: He is alert. Psychiatric: Mood and Affect: Mood normal. Behavior: Behavior normal. Assessment/Plan Diagnoses and all orders for this visit: Gastroesophageal reflux disease without esophagitis Comments: Follows with GI Avoid provocative foods: citrus, alcohol, coffee, chocolate, mints. Eat smaller meals, no eating three hours prior to bedtime. Type 2 diabetes mellitus without complication, without long-term current use of insulin ([facility]) Comments: uncontrolled A1c 9.2 Trulicity added to the regimen Advised Low sugar and Low carb diet. Counseled regarding self-monitoring of blood glucose. Counseled re: potential co-morbidities including cardiovascular disease. Counseled re: potential co-morbidities include neuropathy and retinopathy. Counseled re: potential co-morbidities include nephropathy. Orders: - POCT Glucose - POCT HGB A1C - Basic Metabolic Panel; Future - Lipid Panel, Standard; Future - Hepatic Function Panel; Future - Hemoglobin A1c; Future - Dulaglutide (Trulicity) 0.75 MG/0.5ML solution auto-injector; Inject 0.75 mg under the skin 1 (one) time per week. Encounter for annual wellness visit Encounter for screening for malignant neoplasm of colon - Referral to Gastroenterology; Future Screening-pulmonary TB - QuantiFERON TB Gold; Future documented in this encounter Plan of Treatment Upcoming Encounters Date Type Department Care Team (Late st Contact Info) Description 12/23/2024 1:00 PM EST Office Visit [facility] ADULT DENTAL [address] [place] [address] Alin Kinganpreet [address] [place] [address] Scheduled Orders Name Type Priority Associated Diagnoses Orde r Schedule Basic Metabolic Panel Lab Routine Type 2 diabetes mellitus without complication, without long-term current use of insulin (CMS/HCC) Expected: 12/11/2024 (Approximate), Expires: 12/11/2025 Lipid Panel, Standard Lab Routine Type 2 diabetes mellitus without complication, without long-term current use of insulin (CMS/HCC) Expected: 12/11/2024 (Approximate), Expires: 12/11/2025 Hepatic Function Panel Lab Routine Type 2 diabetes mellitus without complication, without long-term current use of insulin (CMS/HCC) Expected: 12/11/2024 (Approximate), Expires: 12/11/2025 Hemoglobin A1c Lab Routine Type 2 diabetes mellitus without complication, without long-term current use of insulin (CMS/HCC) Expected: 12/11/2024 (Approximate), Expires: 12/11/2025 QuantiFERON TB Gold Lab Routine Screening-pulmonary TB Expected: 12/11/2024 (Approximate), Expires: 12/11/2025 Scheduled Referrals Name Type Priority Associated Diagnoses Order Schedule Referral to Gastroenterology Outpatient Referral Routine Encounter for screening for malignant neoplasm of colon Expected: 12/11/2024 (Approximate), Expires: 12/11/2025 documented as of this encounter Procedures Procedure Name Priority Date/Time Associated Diagnosis Comments POCT GLYCATED HEMOGLOBIN, TOTAL Routine 12/11/2024 9:47 AM EST Type 2 diabetes mellitus without complication, without long-term current use of insulin (CMS/HCC) POCT GLUCOSE Routine 12/11/2024 9:46 AM EST Type 2 diabetes mellitus without complication, without long-term current use of insulin ([facility]) documented in this encounter Results * (ABNORMAL) POCT HGB A1C (12/11/2024 9:47 AM EST) Hemoglobin A1C 9.4(A) 4.0 - 6.0 % QC Media Lot # [id number] Lot# Expiration Date ,026 Blood 12/11/2024 9:47 AM EST Johana Nelson MD POINT OF CARE TEST ENTER/EDIT OR DERABLES Final Result * POCT Glucose (12/11/2024 9:46 AM EST) Glucose Blood, POC 198 60 - 200 mg/dL QC Media Lot # [id number] Lot# Expiration Date [id number] Blood Capillary blood specimen / Unknown 12/11/2024 9:46 AM EST Johana Nelson MD POINT OF CARE TEST ENTER/EDIT OR DERABLES Final Result documented in this encounter Visit Diagnoses Diagnosis Gastroesophageal reflux disease without esophagitis- Primary Esophageal reflux Type 2 diabetes mellitus without complication, without long-term current use of insulin ([facility]) Encounter for annual wellness visit Encounter for screening for malignant neoplasm of colon Screening-pulmonary TB Screening examination for pulmonary tuberculosis documented in this encounter Additional Health Concerns Assessment Noted Time PHQ-9 Depression Total Score: 7 04/10/20 24 4:28 PM EDT documented as of this encounter Care Teams Salesperson Furniture Relationship Specialty Start Date End Date Johana Nelson MD [address] [place] [address] PCP - General Family Medicine 09/24/12 documented as of this encounter
--- OUTSIDE RECORDS SUMMARY | 2024-12-11 11:16 | XMS_ITS | Encounter Summary ---
Author Organization [employer] Address [address] [facility] 7t [place] [address] Care Team Providers Care Nuclear Supervising Operator Name Role Phone Johana Nelson MD Primary Care Provider [phone] Reason for Visit * Reason Onset Date Comments Annual Exam 12/04/2024 Encounter Details Date Type Department Care Team ([facility] Contact Info) Description 12/04/2024 Telephone [facility] CHC MED & PEDS [address] [facility] [place] [phone] Johana Nelson MD [address] [place], [place] [phone] Annual Exam Social History Tobacco Use Types Packs/Day Years [...] encounter Miscellaneous Notes * Telephone Encounter - Teja Vyas - 12/04/2024 11:51 AM EST Pt needs PE done for program. documented in this encounter Plan of Treatment Upcoming Encounters Date Type Department Care Team (Late st Contact Info) Description 12/23/2024 1:00 PM EST Office Visit [facility] ADULT DENTAL [address] [place] [address] Mohsen King [address] [place] [address] documented as of this encounter Visit Diagnoses Not on filedocumented in this encounter Additional Health Concerns Assessment Noted Time PHQ-9 Depression Total Score: 7 04/10/20 24 4:28 PM EDT documented as of this encounter Care Teams Nuclear Supervising Operator Relationship Specialty Start Date End Date Johana Nelson MD [address] [place] [address] PCP - General Family Medicine 09/24/12 documented as of this encounter
--- OUTSIDE RECORDS SUMMARY | 2024-12-11 11:16 | XMS_ITS | Encounter Summary ---
Author Organization [employer] Address [address] [facility] [address]t [place] [address] Care Team Providers Care Firesetter Name Role Phone Johana Nelson MD Primary Care Provider [phone] Reason for Visit * Reason Onset Date Comments Medication Question 11/09/2024 Encounter Details Date Type Department Care Team ([facility] st Contact Info) Description 11/09/2024 Telephone [facility] MEDICINE [address] [place] [address] Johana Nelson MD [address] [facility] [place] [phone] Medication Question Social History Tobacco Use Types [...] Telephone Encounter - Priscilla Stevens RN - 11/09/2024 1:40 PM EST TC to [facility] to confirm new prescription for One Touch. * Telephone Encounter - Richard Jacobs - 11/09/2024 12:14 PM EST Tc from [facility] with [facility]oni stating that Freestyle so the prescription would have to be changed to the One Touch IF any questions contact [facility] at [phone] documented in this encounter Plan of Treatment Upcoming Encounters Date Type Department Care Team (Late st Contact Info) Description 12/23/2024 1:00 PM EST Office Visit [facility] ADULT DENTAL [address] [place] [address] KingAlin sheridananai [address] [place] [address] documented as of this encounter Visit Diagnoses Not on filedocumented in this encounter Additional Health Concerns Assessment Noted Time PHQ-9 Depression Total Score: 7 04/10/20 24 4:28 PM EDT documented as of this encounter Care Teams Firesetter Relationship Specialty Start Date End Date Johana Nelson MD [address] [place] [address] PCP - General Family Medicine 09/24/12 documented as of this encounter
--- OUTSIDE RECORDS SUMMARY | 2024-12-11 11:17 | XMS_ITS | Clinical Summary ---
Author Organization [facility] Address [address] [address] Phone Care Team Providers Care Plastic Boat Buffer Name Role Phone Johana Nelson MD Primary Care Provider [phone] Allergies No known active allergies Active Problems Problem Noted Date Diagnosed Date Gastroesophageal reflux disease 11/17/2024 History of myocardial infarction 11/17/2024 Dyslipidemia 11/17/2024 Pelvic kidney 11/17/2024 Angiomyolipoma of kidney 11/17/2024 Proteinuria, not otherwise specified 04/25/2024 Chronic kidney disease, stage 2 (mild) Diabetes mellitus, not otherwise specified 04/25 Hypertension 04/25/2024 Coronary atherosclerosis 09/24/2012 Encounters Date Type Department Care Team Description 12/09/2024 Orders Only [facility] [address] [address] Ming Bullock MD 12/07/2024 Orders Only [facility] [address] [address] Audie Jones MD Chronic kidney disease, stage 4 (severe) (HCC) (Primary Dx); Anemia in chronic kidney disease; Hyperkalemia; Hypertension from Last 3 Months Social History Tobacco Use Types Packs/Day Years Used Date Smoking Tobacco: Never Assessed Sex and Gender Information Value Date Recorded Sex Assigned at Not on file Legal Sex Male 9:43 AM EST Gender Identity Not on file Sexual Orientation Not on file Last Filed Vital Signs Vital Sign Reading Time Taken Comments Blood Pressure 145/69 04/27/2024 11:39 AM EDT Pulse 60 04/27/2024 11:39 AM EDT Temperature - - Respiratory Rate - - Oxygen Saturation 98% 04/27/2024 11: 39 AM EDT Inhaled Oxygen Concentration - - Weight 72.9 kg (160 lb 12.8 oz) 024 11:39 AM EDT Height 172.7 cm (5' 8 ) 04/27/2024 11:3 9 AM EDT Body Mass Index 24.45 04/27/2024 11:39 AM EDT Plan of Treatment Upcoming Encounters Date Type Department Care Team (Late st Contact Info) Description 12/22/2024 11:20 AM EST Office Visit [facility] [address] [address] Ming Bullock MD [address] [address] Health Maintenance Due Date Last Done Comments Colorectal Cancer Screening: Annual FOBT 2001 Colorectal Cancer Screening: Colonoscopy 2001 Colorectal Cancer Screening: Sigmoidoscopy 2001 Diabetes: Ophthalmology Exam 04/25/2024 Diabetes: Pedal Pulse Checked 04/25/2024 Diabetes: Sensory Foot Exam 04/25/2024 Diabetes: Visual Foot Exam 04/25/2024 Diabetes: Hemoglobin A1C 12/04/2024 09/03/2024, 04/04 Pneumococcal Vaccine: 65+ Years Completed 10/07/2023, 09/22/2019, 01/23/2013, Additional history exists Influenza Vaccine Completed 09/03/2024, , 09/22/2019, Additional history exists Hepatitis B Vaccine Aged Out No longe r eligible based on patient's age to complete this topic Procedures Procedure Name Priority Date/Time Associated Diagnosis Comments PTH, INTACT Routine 12/09/2024 8:23 AM EST MAGNESIUM Routine 12/09/2024 8:23 AM EST PHOSPHATE ( PHOSPHORUS) Routine 12/09/2024 8:23 AM EST URIC ACID Routine 12/09/2024 8:23 AM EST VITAMIN D 25 HYDROXY Routine 12/09/2024 8:23 AM EST PROTEIN / CREATININE RATIO, URINE Routine 12/09/2024 8:23 AM EST COMPREHENSIVE METABOLIC PANEL Routine 12/09/2024 8:23 AM EST CBC AND DIFFERENTIAL Routine 12/09/2024 8:23 AM EST from Last 3 Months Results * Protein, Total, Random Urine w/Creatinine (Protein/Creat Ratio) (12/09/2024 8:23 AM EST) Creatinine, Ur 130.2 Not Estab. mg/dL [facility] Protein, Ur 12.2 Not Estab. mg/dL [facility] Urine Protein/Creatin ine Ratio 94 0 - 200 mg/g creat [facility] 12/09/2024 8:23 AM EST 12/09/2024 us Ming Bullock MD LAB URINE ORDERABLES Final Re sult [facility] [address] [place] [address] * (ABNORMAL) Vitamin D 25 Hydroxy (12/09/2024 8:23 AM EST) Vitamin D, 25-OH, Total 21.5(L) 30.0 - 100.0 ng/mL [facility] Comment: Vitamin D deficiency has been defined by the [place] of Medicine and an Endocrine Society practice guideline as a level of serum 25-OH vitamin D less than 20 ng/mL (1,2). The Endocrine Society went on to further define vitamin D insufficiency as a level between 21 and 29 ng/mL (2). 1. IOM ([place] of Medicine). 2010. Dietary reference ?? intakes for calcium and D. [place]: The ?? National [employer]. 2. Kaylin MF, Sindhu COCHRAN, Jan DAMON, et al. ?? Evaluation, treatment, and prevention of vitamin D ?? deficiency: an Endocrine Society clinical practice ?? guideline. JCEM. 2010; 96(7):1911-30. 12/09/2024 8:23 AM EST 12/09/2024 us Ming Bullock MD LAB BLOOD ORDERABLES Final Re sult [facility] [address] [place] [address] * CBC and Differential (12/09/2024 8:23 AM EST) WBC 8.9 3.4 - 10.8 x10E3/uL [facility] RBC 4.90 4.14 - 5.80 x10E6/uL [facility] Hemoglobin 15.3 13.0 - 17.7 g/dL [facility] Hematocrit 46.5 37.5 - 51.0 % [facility] MCV 95 79 - 97 fL [facility] MCH 31.2 26.6 - 33.0 pg [facility] MCHC 32.9 31.5 - 35.7 g/dL [facility] RDW 11.7 11.6 - 15.4 % [facility] Platelets 232 150 - 450 x10E3/uL [facility] Neutrophils Relative 70 Not Estab. % [facility] Lymphocytes Relative 21 Not Estab. % [facility] Monocytes 7 Not Estab. % [facility] Eosinophils Relative 2 Not Estab. % [facility] Basophils Relative 0 Not Estab. % [facility] Neutrophils Absolute 6.1 1.4 - 7.0 x10E3/uL [facility] Lymphocytes Absolute 1.9 0.7 - 3.1 x10E3/uL [facility] Monocytes Absolute 0.7 0.1 - 0.9 x10E3/uL [facility] Eosinophils Absolute 0.2 0.0 - 0.4 x10E3/uL [facility] Basophils Absolute 0.0 0.0 - 0.2 x10E3/uL [facility] Immature Granulocytes 0 Not Estab. % [facility] Immature Grans (Absolute) 0.0 0.0 - 0.1 x10E3/uL [facility] 12/09/2024 8:23 AM EST 12/09/2024 Ming Bullock MD LAB BLOOD ORDERABLES Final Re sult [facility] [address] [place] [address] * Uric Acid (12/09/2024 8:23 AM EST) Uric Acid 4.0 3.8 - 8.4 mg/dL [facility] Comment:Therapeutic target f or gout patients: <6.0 12/09/2024 8:23 AM EST 12/09/2024 Ming Bullock MD LAB BLOOD ORDERABLES Final Re sult [facility] [address] [place] [address] * Phosphorus (12/09/2024 8:23 AM EST) Phosphorus 3.5 2.8 - 4.1 mg/dL [facility] 12/09/2024 8:23 AM EST 12/09/2024 Ming Bullock MD LAB BLOOD ORDERABLES Final Re sult Performing Organization Address [facility]/ZIP Co de Phone Number [facility] [address] [place] [address] * PTH, Intact (12/09/2024 8:23 AM EST) Pathologist [facility] PTH 18 15 - 65 pg/mL [facility] 12/09/2024 8:23 AM EST 12/09/2024 Ming Bullock MD LAB BLOOD ORDERABLES Final Re sult Performing Organization Address [facility] Co de Phone Number [facility] [address] [place] [address] * Magnesium (12/09/2024 8:23 AM EST) Pathologist [facility] Magnesium 2.1 1.6 - 2.3 mg/dL [facility] 12/09/2024 8:23 AM EST 12/09/2024 Ming Bullock MD LAB BLOOD ORDERABLES Final Re sult Performing Organization Address City/[facility] Co de Phone Number [facility] [place] [address] [place] [address] * (ABNORMAL) Comprehensive Metabolic Panel (12/09/2024 8:23 AM EST) Pathologist [facility] Glucose 201(H) 70 - 99 mg/dL [facility] BUN 24 8 - 27 mg/dL [facility] Creatinine 1.01 0.76 - 1.27 mg/dL [facility] eGFR CKD-EPI CR 2020 79 >59 mL/min/1.7 3 [facility] BUN/Creatinine Ratio 24 10 - 24 [facility] Sodium 140 134 - 144 mmol/L [facility] Potassium 5.1 3.5 - 5.2 mmol/L [facility] Chloride 102 96 - 106 mmol/L [facility] Bicarbonate (CO2) 23 20 - 29 mmol/L [facility] Calcium 9.5 8.6 - 10.2 mg/dL [facility] Total Protein 7.0 6.0 - 8.5 g/dL [facility] Albumin 4.4 3.8 - 4.8 g/dL [facility] Globulin 2.6 1.5 - 4.5 g/dL [facility] Total Bilirubin 1.4(H) 0.0 - 1.2 mg/dL [facility] Alkaline Phosphatase 74 44 - 121 IU/L [facility] AST (SGOT) 22 0 - 40 IU/L [facility] ALT (SGPT) 19 0 - 44 IU/L [facility] 12/09/2024 8:23 AM EST 12/09/2024 us Ming Bullock MD LAB BLOOD ORDERABLES Final Re sult [facility] [address] [place] [address] from Last 3 Months Insurance [place] MEDICAID IN [facility] MEDICARE Care Teams Plastic Boat Buffer Relationship Specialty Start Date End Date Johana Nelson MD [address] [place] [phone] PCP - General Family Medicine 12/27/23
--- OUTSIDE RECORDS SUMMARY | 2024-12-11 11:17 | XMS_ITS | Encounter Summary ---
Author Organization [facility] Address [address] [place] [phone] Phone Care Team Providers Care Small Kick Press Operator Name Role Phone Johana Nelson MD Primary Care Provider [phone] Encounter Details Date Type Department Care Team (Late Contact Info) Description 12/07/2024 Orders Only [facility] [address] [address] Audie Jones MD [facility] [address] Chronic kidney disease, stage 4 (severe) (HCC) (Primary Dx); Anemia in chronic kidney disease; Hyperkalemia; Hypertension Social History Tobacco Use Types Packs/Day Years Used Date Smoking Tobacco: Never Assessed Sex and Gender Information Value Date Recorded Sex Assigned at Not on file Legal Sex Male 9:43 AM EST Gender Identity Not on file Sexual Orientation Not on file documented as of this encounter Plan of Treatment Upcoming Encounters Date Type Department Care Team (Late st Contact Info) Description 12/22/2024 11:20 AM EST Office Visit [facility] [address] [place] [phone] Ming Bullock MD [address] [address] Scheduled Orders Name Type Priority Associated Diagnoses Orde r Schedule Renal Function Panel Lab Routine Chronic kidney disease, stage 4 (severe) (HCC) Anemia in chronic kidney disease Hyperkalemia Hypertension Expected: 12/07/2024, Expires: 01/04/2026 Protein, Total, Random Urine w/Creatinine (Protein/Creat Ratio) Lab Routine Chronic kidney disease, stage 4 (severe) (HCC) Anemia in chronic kidney disease Hyperkalemia Hypertension Expected: 12/07/2024, Expires: 01/04/2026 CBC and Differential Lab Routine Chronic kidney disease, stage 4 (severe) (HCC) Anemia in chronic kidney disease Hyperkalemia Hypertension Expected: 12/07/2024, Expires: 01/04/2026 Iron Panel (Fe, TIBC, TSAT) Lab Routine Chronic kidney disease, stage 4 (severe) (HCC) Anemia in chronic kidney disease Hyperkalemia Hypertension Expected: 12/07/2024, Expires: 01/04/2026 documented as of this encounter Visit Diagnoses Diagnosis Chronic kidney disease, stage 4 (severe) (HCC)- Primary Anemia in chronic kidney disease Hyperkalemia Hypertension documented in this encounter Care Teams Small Kick Press Operator Relationship Specialty Start Date End Date Johana Nelson MD [address] [place] [phone] PCP - General Family Medicine 12/27/23 documented as of this encounter
--- OUTSIDE RECORDS SUMMARY | 2024-12-11 11:17 | XMS_ITS | Encounter Summary ---
Author Organization [facility] Address [address] [address] Phone Care Team Providers Care Stress Engineer Name Role Phone Johana Nelson MD Primary Care Provider Encounter Details Date Type Department Care Team (Late st Contact Info) Description 12/09/2024 Orders Only [facility] [address] [address] Ming Bullock MD [address] [address] Social History Tobacco Use Types Packs/Day Years [...] Office Visit [facility] [address] [place] [phone] Ming Bullock MD [address] [address] documented as of this encounter Procedures Procedure Name Priority Date/Time Associated Diagnosis Comments PROTEIN / CREATININE RATIO, URINE Routine 12/09/2024 8:23 AM EST VITAMIN D 25 HYDROXY Routine 12/09/2024 8:23 AM EST CBC AND DIFFERENTIAL Routine 12/09/2024 8:23 AM EST URIC ACID Routine 12/09/2024 8:23 AM EST PHOSPHATE ( PHOSPHORUS) Routine 12/09/2024 8:23 AM EST PTH, INTACT Routine 12/09/2024 8:23 AM EST MAGNESIUM Routine 12/09/2024 8:23 AM EST COMPREHENSIVE METABOLIC PANEL Routine 12/09/2024 8:23 AM EST documented in this encounter Results * PTH, Intact (12/09/2024 8:23 AM EST) PTH 18 15 - 65 pg/mL [facility] 12/09/2024 8:23 AM EST 12/09/2024 Ming Bullock MD LAB BLOOD ORDERABLES Final Re sult [facility] [address] [place] [address] * Magnesium (12/09/2024 8:23 AM EST) Magnesium 2.1 1.6 - 2.3 mg/dL [facility] 12/09/2024 8:23 AM EST 12/09/2024 Ming Bullock MD LAB BLOOD ORDERABLES Final Re sult [facility] [address] [place] [address] * Phosphorus (12/09/2024 8:23 AM EST) Phosphorus 3.5 2.8 - 4.1 mg/dL [facility] 12/09/2024 8:23 AM EST 12/09/2024 us Ming Bullock MD LAB BLOOD ORDERABLES Final Re sult Performing Organization Address City/[facility]/ZIP Co de Phone Number [facility] [address] [place] [address] * Uric Acid (12/09/2024 8:23 AM EST) Uric Acid 4.0 3.8 - 8.4 mg/dL [facility] Comment:Therapeutic target f or gout patients: <6.0 12/09/2024 8:23 AM EST 12/09/2024 us Ming Bullock MD LAB BLOOD ORDERABLES Final Re sult Performing Organization Address [facility] de Phone Number [facility] [address] [place] [address] * (ABNORMAL) Vitamin D 25 Hydroxy (12/09/2024 8:23 AM EST) Vitamin D, 25-OH, Total 21.5(L) 30.0 - 100.0 ng/mL [facility] Comment: Vitamin D deficiency has been defined by the [place] of Medicine and an Endocrine Society practice guideline as a level of serum 25-OH vitamin D less than 20 ng/mL (1,2). The Endocrine Society went on to further define vitamin D insufficiency as a level between 21 and 29 ng/mL (2). 1. IOM ([place] of Medicine). 2010. Dietary reference ?? intakes for calcium and D. [place]: The ?? National Academies Press. 2. Kaylin MF, Sindhu COCHRAN, Jan DAMON, et al. ?? Evaluation, treatment, and prevention of vitamin D ?? deficiency: an Endocrine Society clinical practice ?? guideline. JCEM. 2010; 96(7):1911-30. 12/09/2024 8:23 AM EST 12/09/2024 Ming Bullock MD LAB BLOOD ORDERABLES Final Re sult Performing Organization Address City/[facility]/ZIP Co de Phone Number [facility] [address] [place] [address] * Protein, Total, Random Urine w/Creatinine (Protein/Creat Ratio) (12/09/2024 8:23 AM EST) Creatinine, Ur 130.2 Not Estab. mg/dL [facility] Protein, Ur 12.2 Not Estab. mg/dL [facility] Urine Protein/Creatin ine Ratio 94 0 - 200 mg/g creat [facility] 12/09/2024 8:23 AM EST 12/09/2024 Ming Bullock MD LAB URINE ORDERABLES Final Re sult Performing Organization Address City/[facility]/ZIP Co de Phone Number [facility] [address] [place] [address] * (ABNORMAL) Comprehensive Metabolic Panel (12/09/2024 8:23 AM EST) Glucose 201(H) 70 - 99 mg/dL [facility] BUN 24 8 - 27 mg/dL [facility] Creatinine 1.01 0.76 - 1.27 mg/dL [facility] eGFR CKD-EPI CR 2020 79 >59 mL/min/1.7 3 [facility] BUN/Creatinine Ratio 24 10 - 24 [facility] Sodium 140 134 - 144 mmol/L [facility] Potassium 5.1 3.5 - 5.2 mmol/L [facility] Chloride 102 96 - 106 mmol/L [facility] Bicarbonate (CO2) 23 20 - 29 mmol/L [facility] Calcium 9.5 8.6 - 10.2 mg/dL [facility] Total Protein 7.0 6.0 - 8.5 g/dL [facility] Albumin 4.4 3.8 - 4.8 g/dL [facility] Globulin 2.6 1.5 - 4.5 g/dL [facility] Total Bilirubin 1.4(H) 0.0 - 1.2 mg/dL [facility] Alkaline Phosphatase 74 44 - 121 IU/L [facility] AST (SGOT) 22 0 - 40 IU/L [facility] ALT (SGPT) 19 0 - 44 IU/L [facility] 12/09/2024 8:23 AM EST 12/09/2024 us Ming Bullock MD LAB BLOOD ORDERABLES Final Re sult [facility] [address] [place] [address] * CBC and Differential (12/09/2024 8:23 AM EST) WBC 8.9 3.4 - 10.8 x10E3/uL [facility] RBC 4.90 4.14 - 5.80 x10E6/uL [facility] Hemoglobin 15.3 13.0 - 17.7 g/dL [facility] Hematocrit 46.5 37.5 - 51.0 % [facility] MCV 95 79 - 97 fL [facility] MCH 31.2 26.6 - 33.0 pg [facility] MCHC 32.9 31.5 - 35.7 g/dL [facility] RDW 11.7 11.6 - 15.4 % [facility] Platelets 232 150 - 450 x10E3/uL [facility] Neutrophils Relative 70 Not Estab. % [facility] Lymphocytes Relative 21 Not Estab. % [facility] Monocytes 7 Not Estab. % [facility] Eosinophils Relative 2 Not Estab. % [facility] Basophils Relative 0 Not Estab. % [facility] Neutrophils Absolute 6.1 1.4 - 7.0 x10E3/uL [facility] Lymphocytes Absolute 1.9 0.7 - 3.1 x10E3/uL [facility] Monocytes Absolute 0.7 0.1 - 0.9 x10E3/uL [facility] Eosinophils Absolute 0.2 0.0 - 0.4 x10E3/uL [facility] Basophils Absolute 0.0 0.0 - 0.2 x10E3/uL [facility] Immature Granulocytes 0 Not Estab. % [facility] Immature Grans (Absolute) 0.0 0.0 - 0.1 x10E3/uL [facility] 12/09/2024 8:23 AM EST 12/09/2024 us Ming Bullock MD LAB BLOOD ORDERABLES Final Re sult [facility] [address] [place] [address] documented in this encounter Visit Diagnoses Not on filedocumented in this encounter Care Teams Stress Engineer Relationship Specialty Start Date End Date Johana Nelson MD [address] [place] [address] PCP - General Family Medicine 12/27/23 documented as of this encounter
[2024-12-14 02:59] LABS: TS Negative Control Passed; TS Panel A 2; TS Panel B 1; TS Positive Control Passed; TSpotTB Negative (Negative)
== END 2024-12-11 10:19 | disposition home or self-care (01) ==
LOC: HO.CHCLDS 10:18
PROVIDERS: Visit Provider Student in an Organized Health Care Education/Training Program
DX: R76.12 Nonspecific reaction to cell mediated immunity measurement of gamma interferon antigen response without active tuberculosis (principal)
CPT/HCPCS: 36415; 86481

== ENCOUNTER 2025-07-28 09:40 | Outpatient (REF) | payer OTHER, SELFPAY ==
--- OUTSIDE RECORDS SUMMARY | 2025-07-28 11:44 | XMS_ITS | Clinical Summary ---
Author Organization [facility] Address [address] [place] [phone] Phone Care Team Providers Care Wood Miller Name Role Phone Johana Nelson MD Primary Care Provider [phone] Allergies No known active allergies Medications Aspirin Adult Low Strength 81 MG EC tablet Take 81 mg by mouth every morning Active atorvastatin (LIPITOR) 20 MG tablet Take 20 mg by mouth 1 (one) time each day 3 Active cetirizine (ZyrTEC) 10 MG tablet Take 10 mg by mouth in the morning. 3 Active Cholecalciferol (Vitamin D3) 125 MCG (5000 UT) capsule Take 125 mcg by mouth every 7 (seven) days Active cyanocobalamin 500 MCG tablet Take 500 mcg by mouth 1 (one) time each day 4 Active Dapagliflozin Propanediol 5 MG tablet Take 5 mg by mouth in the morning. 4 Active Diclofenac Sodium 1 % gel 2 (two) times a day 4 Active ezetimibe (ZETIA) 10 MG tablet Take 1 tablet by mouth every morning 4 Active famotidine (PEPCID) 20 MG tablet Take 20 mg by mouth in the morning and 20 mg in the evening. 4 Active finasteride (PROSCAR) 5 MG tablet Take 5 mg by mouth 1 (one) time each day 4 Active glipiZIDE (GLUCOTROL) 10 MG tablet Take 10 mg by mouth in the morning and 10 mg in the evening. Take before meals. 5 12/09/19 26 Active lidocaine (Lidoderm) 5 % patch Apply 1 each topically 1 (one) time each day 3 Active lisinopril 10 MG tablet Take 10 mg by mouth every morning Active metoprolol tartrate 25 MG tablet Take 12.5 mg by mouth in the morning and 12.5 mg in the evening. 4 Active nitroglycerin (NITROSTAT) 0.[address] 0.4 mg under the tongue every 5 (five) minutes if needed 5 Active sertraline (ZOLOFT) 50 MG tablet Take 50 mg by mouth in the morning. 4 Active tamsulosin (FLOMAX) 0.4 MG 24 hr capsule Take 0.4 mg by mouth in the morning. 4 Active Active Problems Problem Noted Date Diagnosed Date Gastroesophageal reflux disease 11/17/2024 History of myocardial infarction 11/17/2024 Dyslipidemia 11/17/2024 Pelvic kidney 11/17/2024 Angiomyolipoma of kidney 11/17/2024 Proteinuria, not otherwise specified 04/25/2024 Chronic kidney disease, stage 2 (mild) 4 Diabetes mellitus, not otherwise specified 04/25 Hypertension 04/25/2024 Coronary atherosclerosis 09/24/2012 Social History Tobacco Use Types Packs/Day Years Used Date Smoking Tobacco: Never Assessed Sex and Gender Information Value Date Recorded Sex Assigned at Not on file Legal Sex Male 9:43 AM EST Gender Identity Not on file Sexual Orientation Not on file Last Filed Vital Signs Vital Sign Reading Time Taken Comments Blood Pressure 124/66 12/22/2024 10:45 AM EST Pulse 60 12/22/2024 10:45 AM EST Temperature - - Respiratory Rate - - Oxygen Saturation 99% 12/22/2024 10:45 AM EST Inhaled Oxygen Concentration - - Weight 71.8 kg (158 lb 3.2 oz) 12/22/2024 10:45 AM EST Height 172.7 cm (5' 8 ) 12/22/2024 10:45 AM EST Body Mass Index 24.05 12/22/2024 10:45 AM EST Plan of Treatment Health Maintenance Due Date Last Done Comments Colorectal Cancer Screening: Annual FOBT 2001 Colorectal Cancer Screening: Colonoscopy 2001 Colorectal Cancer Screening: Sigmoidoscopy 2001 Diabetes: Ophthalmology Exam 04/25/2024 Diabetes: Pedal Pulse Checked 04/25/2024 Diabetes: Sensory Foot Exam 04/25/2024 Diabetes: Visual Foot Exam 04/25/2024 Diabetes: Hemoglobin A1C 03/10/2025 025, 09/03/2024, 04/20/2024 Influenza Vaccine (#1) 2025 , 08/02/2022, 09/22/2019, Additional history exists Pneumococcal Vaccine: 50+ Years Completed 10/07/2023, 09/22/2019, 01/23/2013, Additional history exists Hepatitis B Vaccine Aged Out No longe r eligible based on patient's age to complete this topic Insurance Medicaid [place] [facility] Medicare Care Teams Wood Miller Relationship Specialty Start Date End Date Johana Nelson MD [address] [place] [phone] PCP - General Family Medicine 12/27/23
--- OUTSIDE RECORDS SUMMARY | 2025-07-28 11:44 | XMS_ITS | Encounter Summary ---
Author Organization [employer] Address [address] [place] [address] [address] [place] [address] Care Team Providers Care Zipper Setter Name Role Phone Johana Nelson MD Primary Care Provider Encounter Details Date Type Department Care Team ([facility] st Contact Info) Description 11/27/2022 Orders Only [facility] [address] [place] [address] Prem Yousif, LitD Social History Tobacco Use Types Packs/Day Years Used Date Smoking Tobacco: Never Assessed Sex and Gender Information Value Date Recorded Sex Assigned at Male 09/03/2022 10:17 AM EDT Legal Sex Male 10:17 AM EDT Gender Identity Male 09/03/2022 10:17 AM EDT Sexual Orientation Straight 09/03/2022 10 :17 AM EDT documented as of this encounter Plan of Treatment Not on file documented as of this encounter Visit Diagnoses Not on filedocumented in this encounter Care Teams Zipper Setter Relationship Specialty Start Date End Date Johana Nelson MD [address] [place] [phone] PCP - General Family Medicine 09/24/12 documented as of this encounter
--- OUTSIDE RECORDS SUMMARY | 2025-07-28 11:44 | XMS_ITS | Encounter Summary ---
Author Organization [employer] Address [address] [place] [address] 7t [place] [address] Care Team Providers Care Obstetrician/Gynecologist Name Role Phone Johana Nelson MD Primary Care Provider [phone] Reason for Visit * Reason Onset Date Comments Medication Question 11/09/2024 Encounter Details Date Type Department Care Team ([facility] st Contact Info) Description 11/09/2024 Telephone [facility] MEDICINE [address] [place] [address] Johana Nelson MD [address] [place] [address] Medication Question Social History Tobacco Use Types [...] enough money to get more: Never True 10/ Transportation Answer Date Recorded In the past [...] Touch IF any questions contact Yaneth at [phone] documented in this encounter Plan of Treatment Not on file documented as of this encounter Visit Diagnoses Not on filedocumented in this encounter Additional Health Concerns Assessment Noted Time PHQ-9 Depression Total Score: 7 04/10/20 24 4:28 PM EDT documented as of this encounter Care Teams Obstetrician/Gynecologist Relationship Specialty Start Date End Date Johana Nelson MD [address] [place] [address] PCP - General Family Medicine 09/24/12 documented as of this encounter
--- OUTSIDE RECORDS SUMMARY | 2025-07-28 11:44 | XMS_ITS | Encounter Summary ---
Author Organization [employer] Address [address] [place] [address] 7t [place] [address] Care Team Providers Care Emergency Room Physician Assistant Name Role Phone Johana Nelson MD Primary Care Provider [phone] Encounter Details Date Type Department Care Team ([facility] st Contact Info) Description 09/30/2024 Orders Only [facility] MED & PEDS [address] [place], [place] [phone] Keshia Frances MD 505 [place] [address] Type 2 diabetes mellitus without complication, without [...] documented as of this encounter Care Teams Emergency Room Physician Assistant Relationship Specialty Start Date End Date Johana Nelson MD [address] [place] [address] PCP - General Family Medicine 09/24/12 documented as of this encounter
--- OUTSIDE RECORDS SUMMARY | 2025-07-28 11:44 | XMS_ITS | Encounter Summary ---
Author Organization [employer] Address [address] [place] [address] [address] [place] [address] Care Team Providers Care Ditch Rider Name Role Phone Johana Nelson MD Primary Care Provider [phone] Encounter Details Date Type Department Care Team ([facility] st Contact Info) Description 08/01/2023 [facility] Information Management [address] [place] [address] Johana Nelson MD [address] [place], [place] [phone] Social History Tobacco Use Types Packs/Day Years [...] documented as of this encounter Care Teams Ditch Rider Relationship Specialty Start Date End Date Johana Nelson MD [address] [place] [address] PCP - General Family Medicine 09/24/12 documented as of this encounter
--- OUTSIDE RECORDS SUMMARY | 2025-07-28 11:44 | XMS_ITS | Encounter Summary ---
Author Organization [employer] Address [address] [facility] 7 [place] [address] Care Team Providers Care Process Control Manager Name Role Phone Johana Nelson MD Primary Care Provider [phone] Reason for Visit * Reason Comments Med Refill Encounter Details Date Type Department Care Team (Late st Contact Info) Description 06/04/2023 Refill [facility] MEDICINE [address] [place] [address] Keshia Frances MD 505 [facility] [place] [address] Type 2 diabetes mellitus without complication, without long-term current use of insulin (CMS/HCC) Social History Tobacco Use Types Packs/Day [...] without long-term current use of insulin (CMS/HCC) documented in this encounter Additional Health Concerns Assessment Noted Time PHQ-9 Depression Total Score: 5 02/08/20 23 10:17 AM EST documented as of this encounter Care Teams Process Control Manager Relationship Specialty Start Date End Date Johana Nelson MD [address] [place] [address] PCP - General Family Medicine 09/24/12 documented as of this encounter
--- OUTSIDE RECORDS SUMMARY | 2025-07-28 11:44 | XMS_ITS | Clinical Summary ---
Author Organization [employer] Address [address] [facility] 7t [place] [address] Care Team Providers Care Physical Metallurgist Name Role Phone Johana Nelson MD Primary Care Provider [phone] Allergies No known active allergies Medications * This document contains information received from the source organization and may not represent a complete record from that organization. lisinopril 10 MG tablet Take 10 mg by mouth in the morning. 10/16/20 22 Active cetirizine (ZyrTEC) 10 MG tablet Take 1 tablet (10 mg) by mouth in the morning. 30 tablet 5 06/28/20 23 Active atorvastatin (Lipitor) 20 MG tablet Take [...] OF 3 DOSES IN 15 MINUTES Active Diclofenac Sodium (Voltaren) 1 % gel Use topical BID 100 g 3 04/20/20 24 Active tamsulosin (Flomax) 0.4 MG 24 hr capsuleIndicati ons:Feeling of incomplete bladder emptying Take 1 capsule (0.4 mg) by mouth Once per day. 90 capsule 1 06/17/20 24 Active gabapentin (Neurontin) 100 MG capsule TAKE TWO CAPSULES BY MOUTH TWICE DAILY IN THE MORNING AND AT BEDTIME 120 capsule 11 07/24/20 24 Active nitroglycerin (Nitrostat) 0.[address] 1 tablet (0.4 mg) under the tongue every 5 (five) minutes if needed for chest pain. 60 tablet 11/24/19 25 Active glipiZIDE (Glucotrol) 10 MG tablet Take 1 tablet (10 mg) by mouth before breakfast and before evening meal. 60 tablet 12/09/19 25 026 Active Dulaglutide (Trulicity) 0.75 MG/0.5ML solution auto-injectorIn dications:Type 2 diabetes mellitus without complication, without long-term current use of insulin ([facility]) Inject 0.75 mg under the skin 1 (one) time per week. 2 mL 3 12/11/19 25 026 Active Farxiga 5 MG TAKE ONE TABLET EVERY MORNING 30 tablet 12/21/19 25 Active ezetimibe (Zetia) 10 MG tablet TAKE ONE TABLET EVERY MORNING 90 tablet 12/23/19 25 Active metoprolol tartrate (Lopressor) 25 MG tablet TAKE 1/2 TABLET TWICE DAILY IN THE MORNING AND AT BEDTIME 30 tablet 3 01/15/20 25 Active Aspirin Adult Low Strength 81 MG EC tablet TAKE ONE TABLET EVERY MORNING 90 tablet 1 02/11/20 25 Active Cobalamin Combinations (B-12 + Folic Acid) 2500-400 MCG tablet dispersibleIndi cations:Varicos e veins of lower extremity, unspecified laterality, unspecified whether complicated Take 1 tablet by mouth in the morning. 30 tablet 11 03/02/20 25 Active Blood Glucose Monitoring Suppl (ONE TOUCH ULTRA 2) w/Device kit Use to test blood sugar once daily 1 kit 03/25/20 25 Active OneTouch Delica Lancets 33G misc Use to test blood sugar once daily 100 each 03/25/20 25 Active glucose blood (OneTouch Ultra) test strip Use to test blood sugar once daily 100 each 03/25/20 25 026 Active famotidine (Pepcid) 20 MG tablet TAKE ONE TABLET BY MOUTH TWICE DAILY IN THE MORNING AND AT BEDTIME 60 tablet 1 05/17/20 25 Active cholecalciferol (Vitamin D-3) 125 MCG (5000 UT) capsule TAKE ONE CAPSULE BY MOUTH ONCE WEEKLY SATURDAY MORNING 4 capsule 4 05/20/20 25 Active metFORMIN (Glucophage) 1000 MG tablet Take 1 tablet (1,000 mg) by mouth with breakfast and with evening meal. 180 tablet 3 07/06/20 25 026 Active sertraline (Zoloft) 50 MG tabletIndicatio ns:Depression, unspecified depression type Take 1 tablet (50 mg) by mouth Once per day. 30 tablet 1 07/06/20 25 025 Active sertraline (Zoloft) 50 MG tabletIndicatio ns:Depression, unspecified depression type Take 1 tablet (50 mg) by mouth Once per day. 30 tablet 1 04/01/20 24 025 Discontinued(Re order (will not trigger notification to Pharmacy)) metFORMIN (Glucophage) 1000 MG tablet Take 1 tablet (1,000 mg) by mouth with breakfast and with evening meal. 180 tablet 3 06/17/20 24 025 Discontinued(Re order (will not trigger notification to Pharmacy)) Active Problems Problem Noted Date Diagnosed Date Coronary artery disease 01/14/2025 Low back pain at multiple sites 01/14/2025 Hyperlipidemia 12/23/2024 Exertional chest pain 12/23/2024 Atypical chest pain 12/23/2024 Presence of stent in LAD coronary artery 025 History of myocardial infarction 11/17/2024 Gastroesophageal reflux disease 11/17/2024 Dyslipidemia 11/17/2024 Angiomyolipoma of kidney 11/17/2024 Pelvic kidney 11/17/2024 Hypertension 04/25/2024 Chronic kidney disease, stage 2 (mild) Proteinuria 04/25/2024 Depression, unspecified 04/07/2024 Assessment & Plan (04/10/2024 [...] mom was very difficult. 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 PLAN: (check all that apply) Further services needed, but declined Behavioral Health Integration Plan Internal Follow up with [facility] Patient Self Plan Patient to utilize skills provided in intervention , [facility], and Patient to [...] mom was very difficult. 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 PLAN: (check all that apply) Further services needed, but declined Behavioral Health Integration Plan Internal Follow up with [facility] Patient Self Plan Patient to utilize skills provided in intervention , Patient to reach out to [facility] team as needed, and Patient [...] 04/11/2018 Dental caries 02/23/2014 Joint pain 04/28/2013 Coronary atherosclerosis 09/24/2012 Assessment & Plan (01/21/2024 8:23 PM [...] Bilateral pain of leg and foot 01/24/2012 Type 2 diabetes mellitus 01/24/2012 Assessment & Plan (01/21/2024 8:23 [...] Encounters Date Type Department Care Team Description 07/06/2025 10:45 AM EDT Office Visit [facility] MED & PEDS [address] [place] [address] Johana Nelson MD Type 2 diabetes mellitus without complication, without long-term current use of insulin ([facility]) (Primary Dx); Pure hypercholesterolemia; Depression, unspecified depression type; Urinary frequency 07/06/2025 Travel 07/02/2025 Telephone [facility] PEDS [address] [place] [address] Johana Nelson MD Chart Prep 06/09/2025 Telephone [facility] MEDICINE [address] [place] [address] Johana Nelson MD 05/19/2025 Refill [facility] MED [facility] PEDS [address] [place] [address] Johana Nelson MD 05/16/2025 Refill [facility] PEDS [address] [place] [address] Johana Nelson MD from Last 3 Months Immunizations Immunization Administration Dates Next Due Influenza High-dose Quadriva [...] Answer Date Recorded Patient Health Questionnaire-9 Score 4 03/09/2025 Patient Health Questionnaire-9 Score 4 03/09/2025 Last PHQ-9: Questionnaire Data Not on file 0 03/09/2025 Housing Stability Answer Date Recorded What is [...] the past 12 months, has t he [employer], gas, oil or water company threatened to shut off services in your home? No 08/23/2023 Depression Answer Date Recorded Patient Health Questionnaire-2 Score 2 03/09/2025 Internet Access Answer Date Recorded Internet Access Q1 Yes 03/02/2025 Internet Access Q2 Not on file 03/02/2025 Sex and Gender Information Value Date Recorded Sex Assigned at Male 09/03/2022 10:17 AM EDT Legal Sex Male 10:17 AM EDT Gender Identity Male 09/03/2022 10:17 AM EDT Sexual Orientation Straight 09/03/2022 10 :17 AM EDT Last Filed Vital Signs Vital Sign Reading Time Taken Comments Blood Pressure 120/60 07/06/2025 10:35 AM EDT Pulse 58 07/06/2025 10:35 AM EDT Temperature 36.2 C (97.1 F) 07/06/2025 10:35 AM EDT Respiratory Rate 18 07/06/2025 10:35 AM EDT Oxygen Saturation 99% 12/30/2024 10:52 AM EST Inhaled Oxygen Concentration - - Weight 72.6 kg (160 lb) 07/06/2025 10:35 AM EDT Height 167 cm (5' 5.75 ) 07/06/2025 10:35 AM EDT Body Mass Index 26.02 07/06/2025 10:35 AM EDT Plan of Treatment Health Maintenance Due Date Last Done Comments CT Colonography 1952 FIT DNA/Cologuard 1952 FIT 1952 FOBT 1952 Sigmoidoscopy 1952 Eye Exam 1962 Diabetes: Urine Protein Screening 11/15/2022 11/15/2021, 03/01/2021, 11/28/2020, Additional history exists Colonoscopy 04/26/2023 04/26/2020 Colorectal Cancer Screening 04/26/2023 Lipid Panel 05/20/2025 05/20/2024, 12/2022, 08/02/2022, Additional history exists Dental Oral Exam 06/09/2025 12/09/2024, , 08/20/2017, Additional history exists Dental Prophylaxis 06/09/2025 12/09/2024, 0 01/15/2024, 08/20/2016, Additional history exists COVID-19 Vaccine ( season) 2025 09/27/2021, 02/08/2021, 01/11/2021 Influenza Vaccine (#1) 2025 , 08/15/2023, 08/02/2022, Additional history exists Diabetes: Hemoglobin A1C 10/05/2025 025, 03/09/2025, 12/11/2024, Additional history exists Dental X-Ray: Bitewings 12/10/2025 12/09/19 25, 01/15/2024, 08/20/2017, Additional history exists Alcohol/Substance Use Screening 12/30/2025 12/30/2024 SDOH Screening 03/02/2026 03/02/2025 Depression Screening 03/09/2026 03/09/2025, 03/09/20 DTaP/Tdap/Td Vaccines (2 - Td or Tdap) 05/15/2026 05/15/2016, 02/08/2006 Diabetes: Foot Exam 07/06/2026 07/06/2025, 07/06/2025, 07/06/2025, Additional history exists Tobacco Screening 07/06/2026 07/06/2025 Dental X-Ray: Full Mouth 01/15/2027 024, 12/06/2023, 12/29/2008 Hepatitis C Screening Completed 02/26/2022 Pneumococcal Vaccine: 50+ Years Completed 10/07/2023, 09/22/2019, 01/23/2013, Additional history exists RSV Patients and Patients Aged 60 years or older Completed 11/12/2023 Zoster Vaccines Completed 11/12/2023, 05/2023, 05/18/2014 HIB Vaccines Aged Out No longer eligi [...] patient's age to complete this topic Meningococcal B Vaccine Aged Out No l onger eligible based on patient's age to complete [...] Diagnosis Comments POCT GLYCATED HEMOGLOBIN, TOTAL Routine 07/06/2025 10:37 AM EDT Type 2 diabetes mellitus without complication, without long-term current use of insulin (CMS/HCC) POCT GLUCOSE Routine 07/06/2025 10:37 AM EDT Type 2 diabetes mellitus without complication, without long-term current use of insulin (CMS/HCC) PROPHYLAXIS - ADULT Routine 12/09/2024 1 0:00 AM EST BITEWINGS - 4 RADIOGRAPHIC IMAGES Routine 12/09/2024 10:00 AM EST PERIODIC ORAL EVALUATION - ESTABLISHED PATIENT Routine 12/09/2024 10:00 AM EST LIPID PANEL, STANDARD Routine 05/20/2024 7:19 AM EDT Type 2 diabetes mellitus without complication, without long-term current use of insulin (CMS/HCC) INTRAORAL - COMPLETE SERIES OF RADIOGRAPHIC IMAGES Routine 01/15/2024 11:00 AM EDT ZZZ HISTORICAL HEPATITIS C AB W/REFL TO HCV RNA, QN, PCR Routine 02/26/2022 9:16 AM EDT ALBUMIN, RANDOM URINE W/CREATININE Routine 11/15/2021 8:57 AM EST HM COLONOSCOPY Routine 04/26/2020 10:25 AM EDT from Last 3 Months or Most Recently Relevant to Health Maintenance Results * (ABNORMAL) POCT HGB A1C (07/06/2025 10:37 AM EDT) [facility] Hemoglobin A1C 9.1(A) 4.0 - 5.7 % QC Media Lot # [id number] Lot# Expiration Date Blood 07/06/2025 10:3 7 AM EDT Johana Nelson MD POINT OF CARE TEST ENTER/EDIT OR DERABLES Final Result * (ABNORMAL) POCT Glucose (07/06/2025 10:37 AM EDT) [facility] Glucose Blood, POC 270(A) 60 - 200 mg/dL QC Media Lot # [id number] Lot# Expiration Date Blood Capillary blood specimen / Unknown 07/06/2025 10:37 AM EDT Johana Nelson MD POINT OF CARE TEST ENTER/EDIT OR DERABLES Final Result * Lipid Panel, Standard (05/20/2024 7:19 AM EDT) [facility] Triglycerides 69 <150 mg/dL [facility] Comment:Desirable Triglyceri de: less than 150 mg/dLBorderline High Triglyceride 150-199 mg/dLHigh Triglyceride: 200-499 mg/dLVery High Triglyceride: greater than or equal to 5OO mg/dL Cholesterol 160 <200 mg/dL [facility] Comment:Desirable Cholestero l: less than 200 mg/dLBorderline High Cholesterol: 200-239 mg/dLHigh Cholesterol: greater than 239 mg/dL LDL Cholesterol Calculated 85 <100 mg/dL [facility] Comment:Desirable LDL: less than 100 mg/dLNear Optimal/Above Optimal LDL: 110- 129 mg/dLBorderline High LDL: 130-159 mg/dLHigh LDL: 160-189 mg/dLVery High LDL: greater than or equal to 190 mg/dL HDL Cholesterol 62 >40 mg/dL [facility] Comment:Desirable HDL: great er than 40 mg/dL Note: This HDL assay may give artificially low results in patients with liver disease. Blood Venous blood specimen / Unknown 05/20/2024 7:19 AM EDT 05/20/2024 7:19 AM EDT us Johana Nelson MD LAB BLOOD ORDERABLES Final Resul t Performing Organization Address City/[facility]/ZIP Co de Phone Number [facility] [address] [place] [address] [phone] * HEPATITIS C AB W/REFL TO HCV RNA, QN, PCR (02/26/2022 9:16 AM EDT) HEPATITIS C ANTIBODY NON-REACT DEB NON-REACT DEB [facility] INDEX 0.02 <1.00 [facility] Comment: HCV antibody was non-reactive. There is no laboratory evidence of HCV infection. In most cases, no further action is required. However, if recent HCV exposure is suspected, a test for HCV RNA (test code 58040) is suggested. For additional information please refer to http://education.[employer]/faq/UVY89k6 (This link is being provided for informational/ educational purposes only.) 02/26/2022 9:16 AM EDT us Georgie Bardales MD HISTORICAL/NON ORDERABLE LABS Final Result Performing Organization Address City/[facility]/ZIP Co de Phone Number [facility] [address] * ALBUMIN, RANDOM URINE W/CREATININE (11/15/2021 8:57 AM EST) Microalbumin Urine 0.6 See Note: mg/dL [facility] Comment: Reference Range: Reference Range Not established Microalb/Creat Ratio 3 <30 mcg/mg creat [facility] Comment: The ADA defines abnormalities in albumin excretion as follows: Albuminuria Category Result (mcg/mg creatinine) Normal to Mildly increased <30 Moderately increased 30-299 Severely increased > OR = 300 The ADA recommends that at least two of three specimens collected within a 3-6 month period be abnormal before considering a patient to be within a diagnostic category. Creatinine, Urine 182 20 - 320 mg/dL [facility] 11/15/2021 8:57 AM EST Johana Nelson MD LAB URINE ORDERABLES Final Resul t [facility] [address] * Hm Colonoscopy (04/26/2020 10:25 AM EDT) Historical Provider HEALTH MAINTENANCE Final Result from Last 3 Months or Most Recently Relevant to Health Maintenance Insurance [facility] STANDARD [facility] [place] MEDICARE PLUS HMO Advance Directives Documents on File Type Date Recorded Patient Systems Programmer Expl anation MOLST form 12/18/2024 11:46 AM Mol For Care Teams Physical Metallurgist Relationship Specialty Start Date End Date Johana Nelson MD [address] [place] [id number] PCP - General Family Medicine 09/24/12
--- OUTSIDE RECORDS SUMMARY | 2025-07-28 11:44 | XMS_ITS | Encounter Summary ---
Author Organization [employer] Address [address] [place] [address] 7 [place] [address] Care Team Providers Care It Trainer Name Role Phone Johana Nelson MD Primary Care Provider [phone] Reason for Visit * Reason Comments Med Refill Encounter Details Date Type Department Care Team ([facility] st Contact Info) Description 03/06/2023 Refill [facility] MEDICINE [address] [place] [address] Aron Grijalva MD [address] [facility] [place] [address] Social History Tobacco Use Types Packs/Day Years [...] documented as of this encounter Care Teams It Trainer Relationship Specialty Start Date End Date Johana Nelson MD [address] [place] [address] PCP - General Family Medicine 09/24/12 documented as of this encounter
--- OUTSIDE RECORDS SUMMARY | 2025-07-28 11:44 | XMS_ITS | Encounter Summary ---
Author Organization [employer] Address [address] [place] [address] 7t [place] [address] Care Team Providers Care Automotive Service Consultant Name Role Phone Johana Nelson MD Primary Care Provider [phone] Reason for Visit * Reason Comments Med Refill Encounter Details Date Type Department Care Team ([facility] st Contact Info) Description 03/02/2025 Refill [facility] MED & PEDS [address] [facility] [place] [address] Johana Nelson MD [address] [place] [address] Varicose veins of lower extremity, unspecified laterality, unspecified whether complicated Social History Tobacco Use Types Packs/Day Years [...] Recorded Patient Health Questionnaire-2 Score 3 04/10/2024 Internet Access Answer Date Recorded Internet Access [...] as of this encounter Visit Diagnoses Diagnosis Varicose veins of lower extremity, unspecified laterality, unspecified whether complicated documented in this encounter Additional Health Concerns Assessment Noted Time PHQ-9 Depression Total Score: 7 04/10/20 24 4:28 PM EDT documented as of this encounter Care Teams Automotive Service Consultant Relationship Specialty Start Date End Date Johana Nelson MD [address] [place] [address] PCP - General Family Medicine 09/24/12 documented as of this encounter
--- OUTSIDE RECORDS SUMMARY | 2025-07-28 11:45 | XMS_ITS | Encounter Summary ---
Author Organization [employer] Address [address] [place] [address] 7t [place] [address] Care Team Providers Care Awning Hanger Helper Name Role Phone Johana Nelson MD Primary Care Provider [phone] Reason for Visit * Reason Onset Date Comments Medication Question 03/11/2025 Encounter Details Date Type Department Care Team ([facility] st Contact Info) Description 03/11/2025 Telephone [facility] MEDICINE [address] [place] [address] Johana Nelson MD [address] [place] [address] Medication Question Social History Tobacco Use Types [...] encounter Miscellaneous Notes * Telephone Encounter - Johana Nelson MD - 03/25/2025 11:33 AM EDT Thank you * Telephone Encounter - Johana Nelson MD - 03/23/2025 9:44 AM EDT SENT * Telephone Encounter - Radha Clark RN - 03/23/2025 9:24 AM EDT Pt walked in asking for a glucometer. Pt has scripts for test strips lancets but states needing a glucometer. Author advised will ask provider for script for glucometer. * Telephone Encounter - Johana Nelson MD - 03/15/2025 11:53 AM EDT Pt referred to [facility] * Telephone Encounter - Tory Samaniego - 03/11/2025 2:01 PM EDT Tc from pt requesting glucose monitor. - Freestyle Glucometer To be sent to: [facility] documented in this encounter Plan of Treatment Not on file documented as of this encounter Visit Diagnoses Not on filedocumented in this encounter Additional Health Concerns Assessment Noted Time PHQ-9 Depression Total Score: 4 03/09/20 25 11:06 AM EDT documented as of this encounter Care Teams Awning Hanger Helper Relationship Specialty Start Date End Date Johana Nelson MD [address] [place] [id number] PCP - General Family Medicine 09/24/12 documented as of this encounter
--- OUTSIDE RECORDS SUMMARY | 2025-07-28 11:45 | XMS_ITS | Encounter Summary ---
Author Organization [employer] Address [address] [facility] 7t [place] [address] Care Team Providers Care Deputy Assessor Name Role Phone Johana Nelson MD Primary Care Provider [phone] Encounter Details Date Type Department Care Team (Late st Contact Info) Description 02/24/2024 Orders Only [facility] MEDICINE [address] [place], [place] [phone] Provider, MD Gwen Social History Tobacco Use Types Packs/Day Years [...] on file documented as of this encounter Procedures Procedure Name Priority Date/Time Associated Diagnosis Comments US RETROPERITONEAL COMPLETE Routine 03/04/2024 2:19 PM EDT HM COLONOSCOPY Routine 04/26/2020 10:25 AM EDT documented in this encounter Results * US Retroperitoneal Complete (03/04/2024 2:19 PM EDT) Anatomical Region Laterality Modality Ultrasound 03/04/2024 2:19 PM EDT Narrative 03/06/2024 10:36 AM EDT [place] [address] Ultrasound Report Signed Patient: Richar Ruiz MR#: [id number] : 1950 Acct:[id number] Age/Sex: 73 / M ADM Date: 03/04/24 Loc: HO.US Attending Dr: Rossy Do MD Ordering Physician: Rossy Do MD Date of Service: 03/04/24 Procedure(s): US retroperitoneal comp Accession Number(s): [id number] cc: Rossy Do MD; Johana Nelson MD [...] in OV> 03/06/24 1032 DD/ 1419 TD/TT: Leather Belt Loop Cutter: RICHARD Procedure Note Donotuseinterpreter, Image - 03/06/2024 [place] [address] Ultrasound Report Signed Patient: Noble Ruiz#: [id number] : 2Acct:[id number] Age/Sex: 73 / MADM Date: 03/04/24 Loc: HO.US Attending Dr: Rossy Do MD Ordering Physician: Rossy Do MD Date of Service: 03/04/24 Procedure(s): US retroperitoneal comp Accession Number(s): [id number] cc: Rossy Do MD; Johana Nelson MD [...] in OV> 03/06/24 1032 DD/ 1419 TD/TT: Leather Belt Loop Cutter: RICHARD [facility] External Provider IMG US PROCEDURES Final Result * Hm Colonoscopy (04/26/2020 10:25 AM EDT) Historical Provider HEALTH MAINTENANCE Final Result documented in this encounter Visit Diagnoses Not on filedocumented in this encounter Additional Health Concerns Assessment Noted Time PHQ-9 Depression Total Score: 5 12/12/19 23 10:17 AM EST documented as of this encounter Care Teams Deputy Assessor Relationship Specialty Start Date End Date Johana Nelson MD [address] [place] [address] PCP - General Family Medicine 09/24/12 documented as of this encounter
[2025-07-28 15:20] LABS: Alanine Aminotransferase 37 U/L (0-40); Albumin Level 4.2 g/dL (3.5-5.0); Alkaline Phosphatase 73 U/L (39-117); Anion Gap 10 (12-20); Aspartate Amino Transferase 34 U/L (5-37); Blood Urea Nitrogen 27 mg/dL (9-16); Calcium 9.2 mg/dL (8.4-10.2); Carbon Dioxide 29 mmol/L (22-29); Chloride 106 mmol/L (96-108); Cholesterol 134 mg/dL (<200); Estimated Glomerular Filt Rate > 60; HDL Cholesterol 60 mg/dL (>40); Potassium 4.0 mmol/L (3.3-5.1); Sodium 141 mmol/L (135-145); Total Protein 7.1 g/dL (6.5-8.0); Triglycerides 52 mg/dL (<150)
[2025-07-28 15:27] LABS: PSA,Total (Free>4and<10) 1.57 ng/mL (0.00-4.00)
[2025-07-28 15:37] LABS: Microalbum/Creatinine Ratio Ur 11.0 ug/mg cr (<30)
== END 2025-07-28 09:41 | disposition home or self-care (01) ==
LOC: HO.CHCLDS 09:40
PROVIDERS: Visit Provider Student in an Organized Health Care Education/Training Program
DX: E11.9 Type 2 diabetes mellitus without complications (principal); Z12.5 Encounter for screening for malignant neoplasm of prostate; R35.0 Frequency of micturition
CPT/HCPCS: 36415; 80048; 80061; 80076; 82043; 82570; 84153

== ENCOUNTER 2025-08-04 10:54 | Outpatient (REF) | payer OTHER, SELFPAY ==
--- NOTE | ~2025-08-04 | MR_ITS ---
EXAMINATION: MR ABDOMEN WITHOUT CONTRAST CLINICAL INFORMATION: N28.89. Other specified disorders of kidney and ureter. COMPARISON: Correlated to CT dated May 20, 2024 reporting a 1.7 cm abnormality, right kidney. TECHNIQUE: Axial, sagittal and coronal T2 haste sequences. Axial T2 fat-sat haste sequences. Axial in and out 3-D phase sequences. FINDINGS: LUNG BASES: No gross signal abnormality. LIVER, GALLBLADDER, AND BILIARY TREE: Liver measures 16 cm. No focal signal abnormality. No intrahepatic biliary ductal dilatation. Flow-void signal within the main vessels is normal. Absent gallbladder/cholecystectomy. Common bile duct measures 5 mm without intraluminal signal abnormality. Abrupt cut off near the junction with the second portion of the duodenum. PANCREAS: No peripancreatic fluid collection. No focal signal abnormality. Main pancreatic duct measures 2 mm. SPLEEN: 9 cm. No focal signal abnormality. ADRENAL GLANDS: Soft tissue fullness without nodular lesions. KIDNEYS AND URETERS: Right kidney: 15 mm heterogeneous exophytic hyperintense T1 and intermediate T2 signal abnormality lesion in the anterior lateral midportion/lower pole junction with the intraconal sepsis and 4 mm nodular component. No hydronephrosis. Left kidney: The kidney is not in its normal anatomic position of the left retroperitoneum. The kidney is 7 the right lower pelvis with orientation of the hilum anterior right lateral. No hydronephrosis. No gross signal abnormality. GASTROINTESTINAL TRACT: Abundant stool. No intestinal obstruction pattern. No ascites. No gross intestinal wall thickening. ABDOMINAL WALL: No gross umbilical hernia. LYMPH NODES: No mesenteric or retroperitoneal lymphadenopathy. VASCULAR: No aneurysm or gross dissection, abdominal aorta. OSSEOUS STRUCTURES: Multilevel thoracolumbar spondylosis. 14 mm hyperintense T2 lesion in the anterior aspect of the vertebral body L1. Grade 1 retrolisthesis L3-4 and L4-5. MR/MR abdomen wo con IMPRESSION: 15 mm exophytic lesion/mass, right kidney. Concerning for malignancy. 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 Electronically signed by: Viet Nicole MD 08/04/2025 12:26 PM EDT
--- OUTSIDE RECORDS SUMMARY | 2025-08-04 12:29 | XMS_ITS | Clinical Summary ---
Author Organization [employer] Address [address] [facility] 7t [place] [address] Care Team Providers Care Set Rider Name Role Phone Johana Nelson MD Primary Care Provider [phone] Allergies No known active allergies Medications * [...] complication, without long-term current use of insulin (HCC) Inject 0.75 mg under the skin 1 [...] by mouth in the morning. 30 tablet 03/02/20 25 Active Blood Glucose Monitoring Suppl [...] (04/10/2024 4:38 PM EDT): During IBH Consult Rcihar presenting with depressed mood, loss of interests/pleasure , trouble concentrating, fatigue/loss of energy, difficulty concentrating and sadness when talking about his mom; for a period of 18+ mo, for all symptoms in the context of and illness or family illness. Richar had presentation of bereavement sxs and reports the passing of his mom was very difficult. 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 PLAN: (check all that apply) Further services needed, but declined Behavioral Health Integration Plan Internal Follow up with [facility] Patient Self Plan Patient to utilize skills provided in intervention , Patient to reach out to [facility] team as needed, and Patient to reach [...] mom was very difficult. 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 PLAN: (check all that apply) Further services needed, but declined Behavioral Health Integration Plan Internal Follow up with [facility] Patient Self Plan Patient to utilize skills provided in intervention , Patient to reach out to [facility] team as needed, and Patient to reach out to [facility] as needed. Pt will follow-up with clinician per his request. Unsure of external referrals for now. Meningioma (CMS/HCC) 01/21/2024 Assessment & Plan (01/21/2024 8:24 PM [...] 8:23 PM EDT): -ED visit 01/12/24 to [facility] for paresthesias and chest pain. R/o TIA [...] Encounters Date Type Department Care Team Description 07/28/2025 Orders Only [facility] PEDS [address] [place] [address] Johana Nelson MD 07/06/2025 10:45 AM EDT Office Visit [facility] [address] [place] [address] Johana Nelson MD Type 2 diabetes mellitus without complication, without long-term current use of insulin ([facility]) (Primary Dx); Pure hypercholesterolemia; Depression, unspecified depression type; Urinary frequency 07/06/2025 Travel 07/02/2025 Telephone [facility] [address] [place] [address] Johana Nelson MD Chart Prep 06/09/2025 Telephone [facility] MEDICINE [address] [place] [phone] Johana Nelson MD 05/19/2025 Refill [facility] CHC MED & PEDS [address] [place] [address] Johana Nelson MD 05/16/2025 Refill [facility] [address] [place] [place] [address] Johana Nelson MD from Last 3 Months [...] FOBT 1950 Sigmoidoscopy 1950 Eye Exam 1962 Colonoscopy 04/26/2023 04/26/2020 Colorectal Cancer Screening 04/26/2023 Dental Oral Exam 06/09/2025 12/09/2024, , 08/20/2017, [...] Additional history exists Tobacco Screening 07/06/2026 07/06/2025 Diabetes: Urine Protein Screening 07/28/2026 07/28/2025, 11/15/2021, 03/01/2021, Additional history exists Lipid Panel 07/28/2026 07/28/2025, 05/04, 04/05/2023, Additional history exists Dental X-Ray: Full Mouth 01/15/2027 024, 12/06/2023, [...] Procedure Name Priority Date/Time Associated Diagnosis Comments ALBUMIN, RANDOM URINE W/CREATININE Routine 07/28/2025 9:49 AM EDT PSA, TOTAL WITH REFLEX TO PSA, FREE Routine 07/28/2025 9:42 AM EDT Urinary frequency HEPATIC FUNCTION PANEL Routine 07/28/2025 9:42 AM EDT Type 2 diabetes mellitus without complication, without long-term current use of insulin (CMS/HCC) LIPID PANEL, STANDARD Routine 07/28/2025 9:42 AM EDT Type 2 diabetes mellitus without complication, without long-term current use of insulin (CMS/HCC) BASIC METABOLIC PANEL Routine 07/28/2025 9:42 AM EDT Type 2 diabetes mellitus without complication, without long-term current use of insulin (CMS/HCC) POCT GLYCATED HEMOGLOBIN, TOTAL Routine 07/06/2025 10:37 [...] Routine 12/09/2024 10:00 AM EST INTRAORAL - COMPLETE SERIES OF RADIOGRAPHIC IMAGES Routine 01/15/2024 11:00 AM EDT [facility]ZZ HISTORICAL HEPATITIS C AB W/REFL TO HCV RNA, QN, PCR Routine 02/26/2022 9:16 AM EDT HM COLONOSCOPY Routine 04/26/2020 10:25 AM EDT from Last 3 Months or Most Recently Relevant to Health Maintenance Results * Albumin, Random Urine W/Creatinine (07/28/2025 9:49 AM EDT) Creatinine, Urine 135.93 mg/dL [facility] Microalbumin Urine 15.0 mg/L [facility] Microalbum Creatinine Ratio Ur 11.0 <30 ug/mg cr [facility] Comment:Albumin/Creatinine R atio Reference Ranges: Normal: < 30 ug/mg creatinine Microalbuminuria: 30 - 300 ug/mg creatinineClinical Albuminuria: > 300 ug/mg creatinine 07/28/2025 9:49 AM EDT 07/28/2025 2:27 PM EDT us Johana Nelson MD LAB URINE ORDERABLES Final Resul t [facility] [address] [place] [address] [phone] * PSA, Total With Reflex to PSA, Free (07/28/2025 9:42 AM EDT) PSA,Total (Free>4and<10) 1.57 0.00 - 4.00 ng/mL [facility] Comment:A Free PSA was not p erformed: The percentage of Free PSA can be used to enhance the differentiation of prostate cancer from benign prostatic disease in subjects whose PSA levels are between 4.0 and 10.0 ng/mL. For subjects whose PSA levels are below 4.0 or above 10.0 ng/mL, the risk of prostate cancer is determined on the basis of the PSA alone. Therefore the % Free PSA is recommended only for those subjects whose PSA levels are between 4.0 and 10.0 ng/mL.PSA methodology: [place]enhall Alinity i ChemiluminescentMicroparticle Immunoassay (CMIA) 07/28/2025 9:42 AM EDT 07/28/2025 2:35 PM EDT Johana Nelson MD LAB BLOOD ORDERABLES Final Resul t Performing Organization Address [facility] Co de Phone Number [facility] [address] [place] [phone] * (ABNORMAL) Hepatic Function Panel (07/28/2025 9:42 AM EDT) Bilirubin, Total 1.7(H) 0.0 - 1.0 mg/dL [facility] Bilirubin, Direct 0.6(H) 0.0 - 0.5 mg/dL [facility] Aspartate Amino Transferase 34 5 - 37 U/L [facility] Alanine Aminotransferase 37 0 - 40 U/L [facility] Total Protein 7.1 6.5 - 8.0 g/dL [facility] Albumin Level 4.2 3.5 - 5.0 g/dL [facility] Alkaline Phosphatase 73 39 - 117 U/L [facility] Blood Venous blood specimen / Unknown 07/28/2025 9:42 AM EDT 07/28/2025 2:35 PM EDT Johana Nelson MD LAB BLOOD ORDERABLES Final Resul t Performing Organization Address [facility] Co de Phone Number [facility] [address] [place] [phone] * Lipid Panel, Standard (07/28/2025 9:42 AM EDT) Triglycerides 52 <150 mg/dL [facility] Comment:Desirable Triglyceri de: less than 150 mg/dLBorderline High Triglyceride 150-199 mg/dLHigh Triglyceride: 200-499 mg/dLVery High Triglyceride: greater than or equal to 5OO mg/dL Cholesterol 134 <200 mg/dL [facility] Comment:Desirable Cholestero l: less than 200 mg/dLBorderline High Cholesterol: 200-239 mg/dLHigh Cholesterol: greater than 239 mg/dL LDL Cholesterol Calculated 64 <100 mg/dL [facility] Comment:Desirable LDL: less than 100 mg/dLNear Optimal/Above Optimal LDL: 110- 129 mg/dLBorderline High LDL: 130-159 mg/dLHigh LDL: 160-189 mg/dLVery High LDL: greater than or equal to 190 mg/dL HDL Cholesterol 60 >40 mg/dL [facility] Comment:Desirable HDL: great er than 40 mg/dL Note: This HDL assay may give artificially low results in patients with liver disease. Blood Venous blood specimen / Unknown 07/28/2025 9:42 AM EDT 07/28/2025 2:35 PM EDT us Johana Nelson MD LAB BLOOD ORDERABLES Final Resul t [facility] [address] [place] [address], [place] [phone] * (ABNORMAL) Basic Metabolic Panel (07/28/2025 9:42 AM EDT) Sodium 141 135 - 145 mmol/L [facility] Potassium 4.0 3.3 - 5.1 mmol/L [facility] Chloride 106 96 - 108 mmol/L [facility] Carbon Dioxide 29 22 - 29 mmol/L [facility] Anion Gap 10(L) 12 - 20 [facility] Urea Nitrogen (BUN) 27(H) 9 - 16 mg/dL [facility] Creatinine, Serum 0.97 0.5 - 1.4 mg/dL [facility] Estimated Glomerular Filt Rate >60 [facility] Comment:Chronic Kidney Disea se: Estimated GFR < 60 mL/min/[id number] Kidney Disease: Estimated GFR < 15 mL/min/1.73m2 Glucose 172(H) 60 - 115 mg/dL [facility] Calcium 9.2 8.4 - 10.2 mg/dL [facility] Blood Venous blood specimen / Unknown 07/28/2025 9:42 AM EDT 07/28/2025 2:35 PM EDT us Johana Nelson MD LAB BLOOD ORDERABLES Final Resul t [facility] [address] [place] [phone] * (ABNORMAL) POCT HGB A1C (07/06/2025 10:37 AM EDT) Pathologist [facility] Hemoglobin A1C 9.1(A) 4.0 - 5.7 % QC Media Lot # [id number] Lot# Expiration Date Blood 07/06/2025 10:3 7 AM EDT us Johana Nelson MD POINT OF CARE TEST ENTER/EDIT OR DERABLES Final Result * (ABNORMAL) POCT Glucose (07/06/2025 10:37 AM EDT) Pathologist [facility] Glucose Blood, POC 270(A) 60 - 200 mg/dL QC Media Lot # [id number] Lot# Expiration Date Blood Capillary blood specimen / Unknown 07/06/2025 10:37 AM EDT us Johana Nelson MD POINT OF CARE TEST ENTER/EDIT OR DERABLES Final Result * HEPATITIS C AB W/REFL TO HCV RNA, QN, PCR (02/26/2022 9:16 AM EDT) Pathologist [facility] HEPATITIS C ANTIBODY NON-REACT DEB NON-REACT [facility] INDEX 0.02 <1.00 [facility] Comment: HCV antibody was non-reactive. There is no laboratory evidence of HCV infection. In most cases, no further action is required. However, if recent HCV exposure is suspected, a test for HCV RNA (test code 63729) is suggested. For additional information please refer to http://Protecode.Wordeo/faq/LRQ75e5 (This link is being provided for informational/ educational purposes only.) 02/26/2022 9:16 AM EDT Georgie Bardales MD HISTORICAL/NON ORDERABLE LABS Final Result [facility] [address] * Hm Colonoscopy (04/26/2020 10:25 AM EDT) Historical Provider HEALTH MAINTENANCE Final Result from Last 3 Months or Most Recently Relevant to Health Maintenance Insurance [facility] STANDARD [facility] [id number] DENTAL - DQ [place] [employer] H[place] Advance Directives Documents on File Type Date Recorded Patient Customer Service Coordinator Khari sanches MOLST form 12/18/2024 11:46 AM Crys For Care Teams Set Rider Relationship Specialty Start Date End Date Johana Nelson MD [address] [place] [phone] PCP - General Family Medicine 09/24/12
--- OUTSIDE RECORDS SUMMARY | 2025-08-04 12:29 | XMS_ITS | Encounter Summary ---
Author Organization [employer] Address [address] [place] [address] 7t [place] [address] Care Team Providers Care Reproduction Technician Name Role Phone Johana Nelson MD Primary Care Provider [phone] Encounter Details Date Type Department Care Team ([facility] st Contact Info) Description 09/30/2024 Orders Only [facility] CHC MED & PEDS [address] [place], [place] [phone] Keshia Frances MD [address] [place], [place] [phone] Type 2 diabetes mellitus without complication, without [...] complication, without long-term current use of insulin (HCC)- Primary Type 2 diabetes mellitus without complications (HCC) documented in this encounter Additional Health Concerns Assessment Noted Time PHQ-9 Depression Total Score: 7 04/10/20 24 4:28 PM EDT documented as of this encounter Care Teams Reproduction Technician Relationship Specialty Start Date End Date Johana Nelson MD [address] [place] [address] PCP - General Family Medicine 09/24/12 documented as of this encounter
--- OUTSIDE RECORDS SUMMARY | 2025-08-04 12:29 | XMS_ITS | Encounter Summary ---
Author Organization [employer] Address [address] [place] [address] 7t [place] [address] Care Team Providers Care Stave And Bolt Equalizer Name Role Phone Johaan Nelson MD Primary Care Provider [phone] Reason for Visit * Reason Comments Med Refill Encounter Details Date Type Department Care Team ([facility] st Contact Info) Description 03/02/2025 Refill [facility] MED & PEDS [address] [facility] [place] [address] Johana Nelson MD [address] [place] [address] Varicose veins of lower extremity, unspecified laterality, [...] documented as of this encounter Care Teams Stave And Bolt Equalizer Relationship Specialty Start Date End Date Johana Nelson MD [address] [place] [phone] PCP - General Family Medicine 09/24/12 documented as of this encounter
--- OUTSIDE RECORDS SUMMARY | 2025-08-04 12:29 | XMS_ITS | Encounter Summary ---
Author Organization [employer] Address [address] [place] [address] 7t [place] [address] Care Team Providers Care Chair Mender Name Role Phone Johana Nelson MD Primary Care Provider [phone] Encounter Details Date Type Department Care Team ([facility] st Contact Info) Description 11/27/2022 Orders Only [facility]C MED & PEDS [address] [place] [address] Prem Yousif, LitD Social History Tobacco Use [...] on filedocumented in this encounter Care Teams Chair Mender Relationship Specialty Start Date End Date Johana Nelson MD [address] [place] [phone] PCP - General Family Medicine 09/24/12 documented as of this encounter
--- OUTSIDE RECORDS SUMMARY | 2025-08-04 12:29 | XMS_ITS | Clinical Summary ---
Author Organization [facility] Address [address] [place] [phone] Phone Care Team Providers Care Power Engineer Name Role Phone Johana Nelson MD Primary Care Provider [phone] Allergies No known active allergies Medications Aspirin [...] Medicaid [place] [facility] Medicare Care Teams Power Engineer Relationship Specialty Start Date End Date Johana Nelson MD [address] [place] [phone] PCP - General Family Medicine 12/27/23
--- OUTSIDE RECORDS SUMMARY | 2025-08-04 12:29 | XMS_ITS | Encounter Summary ---
Author Organization [employer] Address [address] [place] [address] 7 [place] [address] Care Team Providers Care Manual Equipment Mechanic Name Role Phone Johana Nelson MD Primary Care Provider [phone] Reason for Visit * Reason Comments Med Refill Encounter Details Date Type Department Care Team ([facility] st Contact Info) Description 03/06/2023 Refill [facility] [address] [place] [address] Aron Grijalva MD [address] [facility] [place] [address] Social History Tobacco Use Types Packs/Day Years [...] documented as of this encounter Care Teams Manual Equipment Mechanic Relationship Specialty Start Date End Date Johana Nelson MD [address] [place] [address] PCP - General Family Medicine 09/24/12 documented as of this encounter
--- OUTSIDE RECORDS SUMMARY | 2025-08-04 12:29 | XMS_ITS | Encounter Summary ---
Author Organization [employer] Address [address] [facility] 7t [place] [address] Care Team Providers Care Separating Machine Operator Name Role Phone Johana Nelson MD Primary Care Provider [phone] Encounter Details Date Type Department Care Team (Late st Contact Info) Description 02/24/2024 Orders Only [facility] MEDICINE [address] [place], [place] [phone] Provider, MD Gwen Social History Tobacco Use [...] PM EDT Narrative 03/06/2024 10:36 AM EDT [place] [address] Ultrasound Report Signed Patient: Richar uRiz MR#: [id number] : 1950 Acct:[id number] Age/Sex: 73 / M ADM Date: 03/04/24 Loc: HO.US Attending Dr: Rossy Do MD Ordering Physician: Rossy Do MD Date of Service: 03/04/24 Procedure(s): US retroperitoneal comp Accession Number(s): [id number] cc: Rossy Do MD; Johana Nelson MD [...] in OV> 03/06/24 1032 DD/ 1419 TD/TT: Self Pay Specialist: RICHARD Procedure Note Donotuseinterpreter, Image - 03/06/2024 [place] [address] Ultrasound Report Signed Patient: Noble Ruiz#: [id number] : 2Acct:[id number] Age/Sex: 73 / MADM Date: 03/04/24 Loc: HO.US Attending Dr: Rossy Do MD Ordering Physician: Rossy Do MD Date of Service: 03/04/24 Procedure(s): US retroperitoneal comp Accession Number(s): [id number] cc: Rossy Do MD; Johana Nelson MD [...] in OV> 03/06/24 1032 DD/ 1419 TD/TT: Self Pay Specialist: RICHARD [facility] External Provider IMG US PROCEDURES Final Result * Hm Colonoscopy (04/26/2020 10:25 AM EDT) Historical Provider HEALTH MAINTENANCE Final Result documented in this encounter Visit Diagnoses Not on filedocumented in this encounter Additional Health Concerns Assessment Noted Time PHQ-9 Depression Total Score: 5 12/12/19 23 10:17 AM EST documented as of this encounter Care Teams Separating Machine Operator Relationship Specialty Start Date End Date Johana Nelson MD [address] [place] [address] PCP - General Family Medicine 09/24/12 documented as of this encounter
--- OUTSIDE RECORDS SUMMARY | 2025-08-04 12:29 | XMS_ITS | Encounter Summary ---
Author Organization [employer] Address [address] [place] [address] 7t [place] [address] Care Team Providers Care Motion Picture Equipment Supervisor Name Role Phone Johana Nelson MD Primary Care Provider [phone] Reason for Visit * Reason Onset Date Comments Medication Question 03/11/2025 Encounter Details Date Type Department Care Team ([facility] st Contact Info) Description 03/11/2025 Telephone [facility] MEDICINE [address] [place] [address] Johana Nelson MD [address] [place] [address] Medication Question Social History Tobacco Use Types [...] documented as of this encounter Care Teams Motion Picture Equipment Supervisor Relationship Specialty Start Date End Date Johana Nelson MD [address] [place] [phone] PCP - General Family Medicine 09/24/12 documented as of this encounter
--- OUTSIDE RECORDS SUMMARY | 2025-08-04 12:29 | XMS_ITS | Encounter Summary ---
Author Organization [employer] Address [address] [place] [address] [address] [place] [address] Care Team Providers Care Construction Worker Name Role Phone Johana Nelson MD Primary Care Provider [phone] Encounter Details Date Type Department Care Team ([facility] st Contact Info) Description 08/01/2023 [facility] Health Information Management [address] [place] [address] Johana Nelson MD [address] [place], [place] [phone] Social History Tobacco Use Types Packs/Day Years [...] documented as of this encounter Care Teams Construction Worker Relationship Specialty Start Date End Date Johana Nelson MD [address] [place] [address] PCP - General Family Medicine 09/24/12 documented as of this encounter
--- OUTSIDE RECORDS SUMMARY | 2025-08-04 12:29 | XMS_ITS | Encounter Summary ---
Author Organization [employer] Address [address] [place] [address] 7t [place] [address] Care Team Providers Care Farm Equipment Mechanic Name Role Phone Johana Nelson MD Primary Care Provider [phone] Reason for Visit * Reason Onset Date Comments Medication Question 11/09/2024 Encounter Details Date Type Department Care Team ([facility] st Contact Info) Description 11/09/2024 Telephone [facility] MEDICINE [address] [place] [address] Johana Nelson MD [address] [place] [address] Medication Question Social History Tobacco Use Types [...] Touch IF any questions contact Yaneth at [phone] documented in this encounter Plan of Treatment Not on file documented as of this encounter Visit Diagnoses Not on filedocumented in this encounter Additional Health Concerns Assessment Noted Time PHQ-9 Depression Total Score: 7 04/10/20 24 4:28 PM EDT documented as of this encounter Care Teams Farm Equipment Mechanic Relationship Specialty Start Date End Date Johana Nelson MD [address] [place] [address] PCP - General Family Medicine 09/24/12 documented as of this encounter
--- OUTSIDE RECORDS SUMMARY | 2025-08-04 12:29 | XMS_ITS | Encounter Summary ---
Author Organization [employer] Address [address] [facility] [address] [place] [address] Care Team Providers Care Glazing Machine Operator Name Role Phone Johana Nelson MD Primary Care Provider [phone] Reason for Visit * Reason Comments Med Refill Encounter Details Date Type Department Care Team (Late st Contact Info) Description 06/04/2023 Refill [facility] [address] [place] [address] Keshia Frances MD [address] [facility] [place] [address] Type 2 diabetes mellitus without complication, without long-term current use of insulin ([facility]) Social History Tobacco Use Types Packs/Day Years [...] complication, without long-term current use of insulin ([facility]) documented in this encounter Additional Health Concerns Assessment Noted Time PHQ-9 Depression Total Score: 5 12/12/19 23 10:17 AM EST documented as of this encounter Care Teams Glazing Machine Operator Relationship Specialty Start Date End Date Johana Nelson MD [address] [place] [id number] PCP - General Family Medicine 09/24/12 documented as of this encounter
== END 2025-08-04 10:55 | disposition home or self-care (01) ==
LOC: HO.MRI 10:54
PROVIDERS: PCP Student in an Organized Health Care Education/Training Program; Visit Provider Urology
DX: N28.89 Other specified disorders of kidney and ureter (principal)
CPT/HCPCS: 74181

== ENCOUNTER → 2025-08-04 11:20 | Outpatient (BNV) | payer OTHER, SELFPAY | PROVIDERS: PCP Student in an Organized Health Care Education/Training Program; Visit Provider Radiology Diagnostic Radiology | DX: D41.01 Neoplasm of uncertain behavior of right kidney (principal) | CPT/HCPCS: 74181 ==

== ENCOUNTER 2025-08-13 14:37 | Outpatient (AMB) | payer OTHER, SELFPAY ==
--- NOTE | 2025-08-13 15:17 | A.OFFVIS_ITS ---
Intake Visit Reasons: MRI results Intake Note: Patient is present for MRI results Urology Medication: Finasteride Antibiotic Allergies:None Blood Thinners:Aspirin Synthetic Soil Blocks Pulper Required: Yes Synthetic Soil Blocks Pulper Name: [id number] Information Interpreted: non-clinical & clinical Allergies No Known Allergies (No Known Allergies*) Allergy (Verified 11/18/23 09:00) Medication List - Last Reconciled 08/13/25 by Rossy Do MD atorvastatin 20 mg PO QAM cholecalciferol (vitamin D3) 125 mcg PO QWEEK dutasteride (Avodart) 0.5 mg PO DAILY ezetimibe 10 mg PO QAM famotidine 20 mg PO gabapentin 200 mg PO lisinopril 10 mg PO QAM metformin 1,000 mg PO metoprolol tartrate 12.5 mg PO sertraline 50 mg PO QAM tamsulosin 0.4 mg PO QAM HPI Comments Details: 08/13/2025--Richar is presenting in follow-up he had an MRI for indeterminate right renal mass. History of Present Illness The patient is a 74-year-old male presenting for follow-up regarding an indeterminate right renal mass. The MRI conducted on 08/04/25 identified a 15 mm exophytic mass on the right kidney, which is concerning for malignancy. Given the small size of the mass, cryoablation is discussed as a treatment option. 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 The patient is on dutasteride and tamsulosin for prostate management, and these medications will be continued. Results - MRI: 15 mm exophytic mass on the right kidney, suspicious for malignancy - PSA: 1.57 (normal range: 0-4) Plan 1. Right Renal Mass - Referral to interventional radiology for cryoablation 2. Preventative Care: Normal Prostate-Specific Antigen (Psa) Level - Continue with current medications: dutasteride and tamsulosin for prostate management. 09/03/2024--Richar is here for follow-up. Discussed CT scan results--05/20/24-- No kidney in the left retroperitoneum. Right kidney in the right retroperitoneum and Right pelvic kidney. There is symmetric enhancement of both kidneys. No nephrolithiasis. There is subtle contour abnormality and subtle hypoenhancement measuring 1.7 x 1.6 cm along the inferior aspect of the right retroperitoneal kidney which corresponds to the area of abnormal echotexture on recent ultrasound. This is not a lipid rich angiomyolipoma. Etiology uncertain. PSA-05/17/24--3.50 ng/mL--Stable, proscar changed to avodart, tamsulosin. 03/19/24--Richar is here for follow-up for elevated PSA. He was initially evaluated 11/18/2023 for elevated PSA, 09/24/23-4.02 and sent for repeat PSA, started on Proscar and sent for renal ultrasound. I have reviewed ultrasound results 03/04/2024, left kidney is absent from the renal fossa. Right kidney 1.5 cm echogenic lesion lower pole. Pelvic kidney seen to the right of the midline and elevated postvoid residual. Prostate volume estimated at 51 mL. I have discussed further evaluation with CT abdomen and pelvis with and without IV contrast. PSA, BUN, and creatinine ordered. 11/18/23--Richar is a Turkish speaking male who is here for evaluation for elevated PSA. 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 He denies FH of prostate cancer. The patient complains of nocturia 1-2 times denies hematuria, denies dysuria, ocassional weak stream. I have discussed that elevated PSA may indicate changes in the prostate including benign enlargement, cancer and an inflammatory condition. I have discussed doing a biopsy has risks and that management in early detection of prostate cancer may include active surveillance. Prostate exam - smooth no suspicious nodules. UA---Leuk neg, blood neg I have discussed evaluation of urinary tract with US retroperitoneum and will start proscar. PFSH Surgical History Hx of heart artery stent Hx of hernia repair Family History Father Heart disease Diabetes No family history of cancer Mother No problems noted. Social History Alcohol intake: current Alcohol intake frequency: holidays/special occasions only Patient Tobacco Use Status: Never used Tobacco Review of Systems Const All systems reviewed & are unremarkable except as noted in HPI and below Reports no additional complaints Eyes Reports no additional complaints ENT Reports no additional complaints Card Reports no additional complaints Resp Reports no additional complaints GI Reports no additional complaints Reports as per HPI Musc Reports no additional complaints Skin/Breast Reports system reviewed and no additional complaints, except as documented Neuro Reports no additional complaints Psych Reports no additional complaints Endo Reports no additional complaints Liang/Lymph Reports no additional complaints Aller/Immun Reports no additional complaints Results Reviewed Results Reviewed: Date of Service: 08/04/25 EXAMINATION: MR ABDOMEN WITHOUT CONTRAST CLINICAL INFORMATION: N28.89. Other specified disorders of kidney and ureter. COMPARISON: Correlated to CT dated May 20, 2024 reporting a 1.7 cm abnormality, right kidney. TECHNIQUE: Axial, sagittal and coronal T2 haste sequences. Axial T2 fat-sat haste sequences. Axial in and out 3-D phase sequences. FINDINGS: LUNG BASES: No gross signal abnormality. LIVER, GALLBLADDER, AND BILIARY TREE: Liver measures 16 cm. No focal signal abnormality. No intrahepatic biliary ductal dilatation. Flow-void signal within the main vessels is normal. Absent gallbladder/cholecystectomy. Common bile duct measures 5 mm without intraluminal signal abnormality. Abrupt cut off near the junction with the second portion of the duodenum. PANCREAS: No peripancreatic fluid collection. No focal signal abnormality. Main pancreatic duct measures 2 mm. SPLEEN: 9 cm. No focal signal abnormality. ADRENAL GLANDS: Soft tissue fullness without nodular lesions. KIDNEYS AND URETERS: Right kidney: 15 mm heterogeneous exophytic hyperintense T1 and intermediate T2 signal abnormality lesion in the anterior lateral midportion/lower pole junction with the intraconal sepsis and 4 mm nodular component. No hydronephrosis. Left kidney: The kidney is not in its normal anatomic position of the left retroperitoneum. The kidney is 7 the right lower pelvis with orientation of the hilum anterior right lateral. No hydronephrosis. No gross signal abnormality. GASTROINTESTINAL TRACT: Abundant stool. No intestinal obstruction pattern. No ascites. No gross intestinal wall thickening. ABDOMINAL WALL: No gross umbilical hernia. LYMPH NODES: No mesenteric or retroperitoneal lymphadenopathy. VASCULAR: No aneurysm or gross dissection, abdominal aorta. OSSEOUS STRUCTURES: Multilevel thoracolumbar spondylosis. 14 mm hyperintense T2 lesion in the anterior aspect of the vertebral body L1. Grade 1 retrolisthesis L3-4 and L4-5. IMPRESSION: 15 mm exophytic lesion/mass, right kidney. Concerning for malignancy. Date of Service: 05/20/24 CT ABDOMEN AND PELVIS WITHOUT AND WITH CONTRAST CLINICAL INFORMATION: Right renal mass. COMPARISON: Renal ultrasound 03/04/2024. TECHNIQUE: Multidetector volumetric imaging was performed of the abdomen and pelvis before and after the IV administration of 85 mL of Omnipaque 350 intravenous contrast. Sagittal and coronal reformatted images were obtained on the technologist's workstation. This CT examination was performed using dose optimization techniques as appropriate, variously including the following: *Automated exposure control *Adjustment of mA and/or kV according to patient size (this includes techniques or standardized protocols for targeted exams where dose is matched to indication/reason for exam; i.e. extremities or head) *Use of iterative reconstruction technique DLP: 409 mGy-cm FINDINGS: LUNG BASES: The visualized lung bases are unremarkable. LIVER, GALLBLADDER, AND BILIARY TREE: The liver is normal in size, shape, and attenuation. No focal hepatic lesion or biliary ductal dilatation is present. Cholecystectomy. PANCREAS: No discrete pancreatic mass. No pancreatic ductal dilatation. 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 KIDNEYS AND URETERS: No kidney in the left retroperitoneum. Right kidney in the right retroperitoneum. Right pelvic kidney. There is symmetric enhancement of both kidneys. No nephrolithiasis. There is subtle contour abnormality and subtle hypoenhancement measuring 1.7 x 1.6 cm along the inferior aspect of the right retroperitoneal kidney which corresponds to the area of abnormal echotexture on recent ultrasound. This is not a lipid rich angiomyolipoma. Etiology uncertain. This could represent perfusional artifact or a subtle endophytic mass that enhances similarly to adjacent renal parenchyma making it difficult to distinguish. Recommend further evaluation with MRI of the abdomen without and with intravenous contrast as it has better soft tissue characterization than CT. There is no visible mass in the right pelvic kidney. No hydronephrosis. BLADDER: Unremarkable GASTROINTESTINAL TRACT: Small bowel is normal in caliber. Diverticulosis of the colon. No evidence of diverticulitis. ABDOMINAL WALL: Left inguinal hernia repair. LYMPH NODES: No pathologically enlarged lymph nodes. VASCULAR: No aortic aneurysm. Mild aortoiliac atherosclerosis. PELVIC VISCERA: The prostate is enlarged. OSSEOUS STRUCTURES: Degenerative changes in the spine. IMPRESSION: Subtle contour abnormality and hypoenhancement measuring 1.7 x 1.6 cm in the lower right kidney corresponding to the area of abnormal echotexture on recent ultrasound. The finding is nonspecific. Neoplasm is not excluded. Recommend further evaluation with MRI of the abdomen without and with intravenous contrast due to its better soft tissue characterization. Date of Service: 03/04/24 EXAMINATION: US RETROPERITONEAL COMPLETE (RENAL) CLINICAL INFORMATION: Benign prostatic hyperplasia with lower urinary tract symptoms. COMPARISON: None available. TECHNIQUE: Real-time imaging of the kidneys and bladder. FINDINGS: RIGHT KIDNEY: 11.2 x 6.8 x 5.6 cm (SAG x AP x TRV). The kidney is normal in size, contour, and echogenicity. Renal cortical thickness is normal. No renal calculi or hydronephrosis. Multiple simple cysts measuring up to 2.0 cm. No imaging follow-up is recommended. 1.5 cm focal echogenic lesion in the lower pole right kidney. LEFT KIDNEY: No kidney is seen in the left renal fossa. PELVIC KIDNEY: Located to the right of midline. Pelvic kidney measures 8.8 x 2.7 x 3.0 cm (SAG x AP x TRV). The kidney measures small but this may be due to the pelvic position of the kidney and suboptimal visualization. There is no visible mass. No nephrolithiasis or hydronephrosis. BLADDER: Well distended and normal. Bilateral ureteral jets are demonstrated. Prevoid bladder volume is 350 mL. Postvoid bladder volume is 215 mL. ADDITIONAL FINDINGS: Enlarged prostate measuring 51 mL. IMPRESSION: Right kidney in the right renal fossa. 1.5 cm focal echogenic lesion in the lower pole right kidney. 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 Follow-up imaging is recommended with CT abdomen without and with contrast as renal cell carcinoma can present as an echogenic mass on ultrasound. No kidney in the left renal fossa. There is a pelvic kidney located to the right of midline which measures small in size but is otherwise normal in appearance. Enlarged prostate. No hydronephrosis. Post void bladder residual 215 mL. 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 Right Renal Mass - Referral to interventional radiology for cryoablation 2. Preventative Care: Normal Prostate-Specific Antigen (Psa) Level - Continue with current medications: dutasteride and tamsulosin for prostate management. Medications: Refilled dutasteride (Avodart) 0.5 mg PO DAILY 90 caps 3RF tamsulosin 0.4 mg PO QAM 90 caps 3RF Patient Instructions: The patient had an opportunity to ask questions regarding treatment plan. The patient expressed understanding and agreement with the above treatment plan. The patient is aware they should contact our office by phone for worsening of their current condition or the appearance of new symptoms. Compliance is encouraged with any medications and followup testing that is ordered. It is a privilege to be allowed the opportunity to participate in the urologic care of your patient. If you have any questions or concerns regarding treatment for the above conditions please do not hesitate to contact me. The office telephone contact is [phone]. This note is constructed in part using voice recognition software. While every effort has been made to ensure accuracy precipitate washer errors may have been included. Yours sincerely, Rossy Do MD Scribe Plan - Not visible on output: Patient was informed and verbally consented to the use of an ambient scribe for clinic note documentation during this visit. Coding Level of Care Code Est Pt Level 4 (19340) Complex EM visit Add On G2211 Diagnoses Renal mass N28.89 Abnormal MRI R93.89 Pelvic kidney Q63.2 BPH loc w urin obs/LUTS N40.1
== END 2025-08-13 16:00 | disposition home or self-care (01) ==
LOC: HO.HUSH 14:38
PROVIDERS: PCP Student in an Organized Health Care Education/Training Program; Visit Provider Urology
DX: N28.89 Other specified disorders of kidney and ureter (principal); R93.89 Abnormal findings on diagnostic imaging of other specified body structures; Q63.2 Ectopic kidney; N40.1 Benign prostatic hyperplasia with lower urinary tract symptoms
CPT/HCPCS: 99214; G2211

== ENCOUNTER → 2025-08-13 14:37 | Outpatient (BNVA) | payer OTHER, SELFPAY | PROVIDERS: PCP Student in an Organized Health Care Education/Training Program; Visit Provider Urology | DX: Z71.2 Person consulting for explanation of examination or test findings (principal); Q63.2 Ectopic kidney; N40.1 Benign prostatic hyperplasia with lower urinary tract symptoms; R93.89 Abnormal findings on diagnostic imaging of other specified body structures; N28.89 Other specified disorders of kidney and ureter | CPT/HCPCS: 99212 ==